=== PATIENT | female | born 1985 | race Caucasian/White ===

== ENCOUNTER 2017-02-02 13:25 | Outpatient (CLI) | payer MEDICAID | END 2017-02-02 13:26 | disposition home or self-care (01) | DX: M77.32 Calcaneal spur, left foot (principal) ==

== ENCOUNTER 2017-04-21 14:00 | Emergency (ER) | payer MEDICAID ==
--- NOTE | 2017-04-21 14:21 | ED Physician Documentation ---
PD HPI ABD PAIN - Stated complaint Stated Complaint: NAUSEA/SIDE PX - Chief complaint Chief Complaint: Abd Pain - History obtained from History obtained from: Patient - History of Present Illness Timing - onset: Other (Healthy 31-year-old woman who for the last 6 or so weeks has had a metallic taste in her mouth with nausea and watery mouth, the last 3 weeks has had pelvic cramps and was seen in the office today and had right lower quadrant tenderness and was referred here for evaluation for potential appendicitis. No changes in bowel movements. 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 : None HEENT: None Psych: None Musculoskeletal: Other Derm: None - Past Surgical History Past Surgical History: Yes Ortho: Other - Present Medications Home Medications: Ambulatory Orders Medication Instructions Recorded Confirmed Levothyroxine [Synthroid] 75 mcg PO QDAC 09/25/16 04/21/17 Ondansetron HCl [Zofran] 4 mg PO Q6H PRN #10 tablet 04/21/17 - Allergies Allergies/Adverse Reactions: Allergies Allergy/AdvReac Type Severity Reaction Status Date / Time latex Allergy Itching Verified 04/21/17 14:07 morphine Allergy Respiratory Verified 04/21/17 14:07 - Social History Does the pt smoke?: No Smoking Status: Former smoker Does the pt drink ETOH?: No Does the pt have substance abuse?: No - Family History Family history: reports: Non contributory - Immunizations Immunizations are current?: Yes - POLST Patient has POLST: No PD ED PE NORMAL - Vitals Vital signs reviewed: Yes - General General: Alert and oriented X 3, No acute distress, Well developed/nourished - HEENT HEENT: PERRL, EOMI - Neck Neck: Supple, no meningeal sign, No bony TTP - Cardiac Cardiac: RRR, No murmur - Respiratory Respiratory: No respiratory distress, Clear bilaterally - Abdomen Abdomen: Other (Tender right pelvis more than right lower quadrant, no guarding or rebound. Normal bowel tones. Soft.) - Back Back: No CVA TTP, No spinal TTP - Derm Derm: Normal color, Warm and dry - Extremities Extremities: No edema, No calf tenderness / cord - Neuro Neuro: Alert and oriented X 3, Normal speech - Psych Psych: Normal mood, Normal affect Results - Vitals Vitals: Vital Signs - 24 hr 04/21/17 04/21/17 14:05 15:44 Temperature 36.6 C Heart Rate 83 78 Respiratory 18 16 Rate Blood Pressure 128/93 H 128/78 O2 Saturation 99 100 Oxygen O2 Source Room air - Labs Labs: Laboratory Tests 04/21/17 04/21/17 04/21/17 14:15 14:15 14:21 WBC 9.4 RBC 4.68 Hgb 14.3 Hct 41.4 MCV 88.3 MCH 30.4 MCHC 34.5 RDW 12.3 Plt Count 335 MPV 7.8 L Neut # 5.9 Lymph # 2.9 Ferry # 0.5 Eos # 0.1 Baso # 0.1 Absolute Nucleated RBC 0.00 Nucleated RBCs 0.1 Sodium Potassium Chloride Carbon Dioxide Anion Gap BUN Creatinine Estimated GFR (MDRD) Glucose Calcium Total Bilirubin AST ALT Alkaline Phosphatase Total Protein Albumin Globulin Albumin/Globulin Ratio Lipase Urine Color YELLOW Urine Clarity CLEAR Urine pH 5.5 Ur Specific [place] 1.025 1.025 Urine Protein NEGATIVE Urine Glucose (UA) NEGATIVE Urine Ketones NEGATIVE Urine Occult Blood NEGATIVE Urine Nitrite NEGATIVE Urine Bilirubin NEGATIVE Urine Urobilinogen 0.2 (NORMAL) Ur Leukocyte Esterase NEGATIVE Ur Microscopic Review NOT INDICATED Urine Culture Comments NOT INDICATED Urine HCG, Qual NEGATIVE 04/21/17 14:21 WBC RBC Hgb Hct MCV MCH MCHC RDW Plt Count MPV Neut # Lymph # Ferry # Eos # Baso # Absolute Nucleated RBC Nucleated RBCs Sodium 138 Potassium 4.0 Chloride 102 Carbon Dioxide 27 Anion Gap 9.0 BUN 17 Creatinine 0.7 Estimated GFR (MDRD) 98 Glucose 100 Calcium 9.6 Total Bilirubin 0.4 AST 18 ALT 20 Alkaline Phosphatase 67 Total Protein 8.1 Albumin 4.4 Globulin 3.7 Albumin/Globulin Ratio 1.2 Lipase 21 L Urine Color Urine Clarity Urine pH Ur Specific [place] Urine Protein Urine Glucose (UA) Urine Ketones Urine Occult Blood Urine Nitrite Urine Bilirubin Urine Urobilinogen Ur Leukocyte Esterase Ur Microscopic Review Urine Culture Comments Urine HCG, Qual - Rads (name of study) CT A/P Radiology: EMP read contemporaneously (mild diverticulosis, NAD, normal appendix ) PD MEDICAL DECISION MAKING - ED course ED course: 31-year-old with almost subacute odd symptoms of nausea and metallic taste in her mouth with no evidence of . Sent from the clinic with right lower quadrant tenderness, but no leukocytosis and no abnormality on CT. 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 Departure - Departure Disposition: 01 Home, Self Care Clinical Impression: Abdominal pain Qualifiers: Abdominal location: right lower quadrant Qualified Code(s): R10.31 - Right lower quadrant pain Condition: Good Record reviewed to determine appropriate education?: Yes Instructions: ED Abdominal Pain Unkn Cause Follow-Up: [facility] [Provider Group] - Within 3 Days Prescriptions: Ondansetron HCl [Zofran] 4 mg PO Q6H PRN #10 tablet PRN Reason: Nausea / Vomiting Forms: Activity restrictions
[2017-04-21 14:33] LABS: HCG UR QUAL NEGATIVE
[2017-04-21 14:43] LABS: BASOPHILS # (AUTO) 0.1 10^3/uL (0.0-0.1); BASOPHILS % (AUTO) 0.6 %; EOSINOPHILS # (AUTO) 0.1 10^3/uL (0.0-0.7); HCT - HEMATOCRIT 41.4 % (37.0-47.0); HGB - HEMOGLOBIN 14.3 g/dL (12.0-16.0); LYMPHOCYTES # (AUTO) 2.9 10^3/uL (1.5-3.5); LYMPHOCYTES % (AUTO) 30.4 %; MEAN CORPUSCULAR HEMOGLOBIN 30.4 pg (27.0-31.0); MEAN CORPUSCULAR HGB CONC 34.5 g/dL (32.0-36.0); MEAN CORPUSCULAR VOLUME 88.3 fL (81.0-99.0); MEAN PLATELET VOLUME 7.8 fL (7.9-10.8); MONOCYTES # (AUTO) 0.5 10^3/uL (0.0-1.0); MONOCYTES % (AUTO) 5.3 %; NEUTROPHILS # (AUTO) 5.9 10^3/uL (1.5-6.6); NEUTROPHILS % (AUTO) 62.7 %; NUCLEATED RED BLOOD CELLS AUTO 0.1 /100WBC; RED BLOOD COUNT 4.68 10^6/uL (4.20-5.40); RED CELL DISTRIBUTION WIDTH 12.3 % (12.0-15.0); UNCORRECTED WHITE BLOOD COUNT 9.4 x10^3/uL; WHITE BLOOD COUNT 9.4 x10^3/uL (4.8-10.8)
[2017-04-21 14:55] LABS: ALBUMIN/GLOBULIN RATIO 1.2 (1.0-2.2); BILIRUBIN,TOTAL 0.4 mg/dL (0.2-1.0); CALCIUM 9.6 mg/dL (8.5-10.3); CREATININE 0.7 mg/dL (0.4-1.0); TOTAL PROTEIN 8.1 g/dL (6.7-8.2)
[2017-04-21 15:26] LABS: BILIRUBIN,URINE NEGATIVE (NEGATIVE); PH,URINE 5.5 PH (5.0-7.5)
[2017-04-21 15:27] LABS: UA CHARGE (STRIP ONLY) YES; UR CULTURE IF IND NOT INDICATED
[2017-04-21] MEDS ORDERED: IOPAMIDOL-300 100 ML VIAL IVP ONE (15:33)
[2017-04-21 15:47] VITALS: BP 128/78
--- NOTE | 2017-04-21 16:12 | CT Preliminary Report ---
Exam: CT Abdomen/Pelvis W/ IMPRESSION: 1. Normal appendix. 2. Mild diverticulosis without evidence for diverticulitis. [facility] SITE ID: [id number]
--- NOTE | 2017-04-21 16:14 | CT Report ---
EXAM: CT ABDOMEN AND PELVIS EXAM DATE: 04/21/2017 03:36 PM. CLINICAL HISTORY: IV only, RLQ pain, wait for neg preg test. COMPARISONS: None. TECHNIQUE: Routine helical CT imaging was performed through the abdomen and pelvis. IV contrast: 100 cc Isovue 300. Enteric contrast: No. Reconstructions: Coronal and sagittal. In accordance with CT protocol optimization, one or more of the following dose reduction techniques w ere utilized for this exam: automated exposure control, adjustment of mA and/or KV based on patient s ize, or use of iterative reconstructive technique. FINDINGS: Lung Bases: Unremarkable. Liver: Normal. No masses. Gallbladder/Bile Ducts: Partially contracted gallbladder. No biliary ductal dilatation evident. Spleen: Normal. Pancreas: Normal. Adrenal Glands: Normal. Kidneys: Normal. No masses or hydronephrosis. Peritoneal Cavity/Bowel: Diverticulosis. Prominent ileocecal valve fat. The appendix is well visualized and normal. Pelvic Organs: A couple of surgical clips or punctate calcifications are present along left levator ani muscle. Bladder is nearly collapsed. No adnexal mass evident. Unremarkable uterus. Vasculature: No aneurysms or other significant abnormality. Bones: No significant abnormality. Other: None. IMPRESSION: 1. Normal appendix. 2. Mild diverticulosis without evidence for diverticulitis. [facility] Referring Provider Line: [phone] SITE ID: [id number]
== END 2017-04-21 16:45 | disposition home or self-care (01) ==
LOC: ED 14:00
DX: R10.31 Right lower quadrant pain (principal); E03.9 Hypothyroidism, unspecified; Z87.891 Personal history of nicotine dependence
CPT/HCPCS: 36415; 74177; 80053; 81003; 81025; 83690; 85025; 99283; 99284; Q9967; 81001; 87086

== ENCOUNTER 2017-11-18 08:00 | Outpatient (CLI) | payer MEDICAID | END 2017-11-18 08:01 | disposition home or self-care (01) | LOC: LAB.N 08:00 | PROVIDERS: ATTEND Family Medicine | DX: E06.3 Autoimmune thyroiditis (principal) | CPT/HCPCS: 36415; 84443 ==

== ENCOUNTER 2018-01-31 10:27 | Emergency (ER) | payer MEDICAID ==
--- NOTE | 2018-01-31 12:45 | ED Physician Documentation ---
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 No cough, dyspnea, pleuritic pain.) Where injury occurred: Work Timing - duration: Weeks (3) Timing - details: Still present Worsened by: Moving. 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 HEENT: None Psych: None Musculoskeletal: Other Derm: None - Past Surgical History Past Surgical History: Yes Ortho: Other - Present Medications Home Medications: Ambulatory Orders Medication Instructions Recorded Confirmed Levothyroxine [Synthroid] 75 mcg PO QDAC 09/25/16 04/21/17 Ondansetron HCl [Zofran] 4 mg PO Q6H PRN #10 tablet 04/21/17 Methocarbamol [Robaxin] 500 mg PO Q6H PRN #25 tablet 01/31/18 Tramadol HCl 50 mg PO Q6H PRN #20 tablet 01/31/18 - Allergies Allergies/Adverse Reactions: Allergies Allergy/AdvReac Type Severity Reaction Status Date / Time latex Allergy Itching Verified 04/21/17 14:07 morphine Allergy Respiratory Verified 04/21/17 14:07 - Social History Does the pt smoke?: No Smoking Status: Never smoker Does the pt drink ETOH?: Yes Does the pt have substance abuse?: No - Immunizations Immunizations are current?: Yes - POLST Patient has POLST: No PD ED PE NORMAL - Vitals Vital signs reviewed: Yes - General General: Alert and oriented X 3, No acute distress, Well developed/nourished - HEENT HEENT: Atraumatic - Neck Neck: Supple, no meningeal sign, No adenopathy - Cardiac Cardiac: RRR, No murmur - Respiratory Respiratory: Clear bilaterally - Abdomen Abdomen: Soft, Non tender - Back Back: No spinal TTP - Derm Derm: Normal color, Warm and dry, No rash - Extremities Extremities: Other (both shoulders with some tenderness medial scapular area. Pain with ROM of the right shoulder more, exp with overhead reaching and forward pull/reach. No chestwall tenderness. ) - Neuro Neuro: Alert and oriented X 3, No motor deficit, No sensory deficit, Normal speech Results - Vitals Vitals: Vital Signs - 24 hr 01/31/18 01/31/18 10:43 13:21 Temperature 36.5 C 36.6 C Heart Rate 99 70 Respiratory 18 16 Rate Blood Pressure 134/92 H 154/94 H O2 Saturation 99 99 Oxygen O2 Source Room air - EKG (time done) 10:39 Rhythm: NSR (done through nursing triage protocols) Carver: Normal Intervals: Normal AK QRS: Normal Ischemia: Normal ST segments. No: ST elevation c/w ischemia, ST depression Compare to prior EKG: Old EKG unavailable PD MEDICAL DECISION MAKING - ED course Complexity details: considered differential (has muscular character, hurting with shoulder movement, even though pain does radiate to sternal area.), d/w patient Departure - Departure Disposition: 01 Home, Self Care Clinical Impression: Injury of muscle of thorax Condition: Stable Record reviewed to determine appropriate education?: Yes Instructions: ED Sprain Thoracic Spine Follow-Up: Juan Amaya MD [Primary Care Provider] - Prescriptions: Methocarbamol [Robaxin] 500 mg PO Q6H PRN #25 tablet PRN Reason: Spasms Tramadol HCl 50 mg PO Q6H PRN #20 tablet PRN Reason: Pain Comments: This sounds like muscular shoulder and upper back pains. Muscles do emanate from anterior chest as well that controlled the shoulder girdle and some of the nerves from that area would come through to the anterior chest so can be musculoskeletal and perhaps some nerve impingement. Use the anti- inflammatories you have at home twice daily and add Robaxin muscle relaxant ( help this will make you feel lightheaded or sleepy). Add Tylenol or tramadol if needed for worse pain. Activity as able. Avoid heavy lifting, push pull, overhead reaching for 3-5 days or so. Discharge Date/Time: 01/31/18 13:49
[2018-01-31] MEDS ORDERED: METHOCARBAMOL 500 MG TABLET PO STA (13:07)
[2018-01-31] MEDS ORDERED: ACETAMINOPHEN 325 MG TABLET PO STA (13:07)
[2018-01-31] MEDS ORDERED: TRIAMCINOLONE 40 MG/ML VIAL IM STA (13:07)
[2018-01-31] MEDS ORDERED: BUPIVACAINE 0.5% PF 30 ML VIAL SUBQ STA (13:07)
[2018-01-31] MEDS ORDERED: BUPIVACAINE 0.5% PF 10 ML VIAL SUBQ STA (13:09)
[2018-01-31 13:22] VITALS: BP 154/94
== END 2018-01-31 13:49 | disposition home or self-care (01) ==
LOC: ED 10:27
DX: S29.091A Other injury of muscle and tendon of front wall of thorax, initial encounter (principal); X50.0XXA Overexertion from strenuous movement or load, initial encounter; Y93.F2 Activity, caregiving, lifting; E03.9 Hypothyroidism, unspecified
CPT/HCPCS: 93005; 96372; 99283; A9270

== ENCOUNTER 2018-03-01 14:32 | Outpatient (CLI) | payer OTHER, MEDICAID ==
--- NOTE | 2018-03-02 09:25 | XRAY Report ---
THREE-VIEW LEFT SHOULDER: 03/01/2018 CLINICAL INDICATION: Joint pain. FINDINGS: Internal and external rotational views and a scapular Y view of the left shoulder demonstrate no evidence of acute fracture or dislocation. The joint spaces are preserved. No radiopaque foreign body is seen in the soft tissues. IMPRESSION: NORMAL LEFT SHOULDER. TD: 03/02/2018 09:24
== END 2018-03-01 14:33 | disposition home or self-care (01) ==
LOC: DI.N 14:32
PROVIDERS: ATTEND Nurse Practitioner
DX: M25.512 Pain in left shoulder (principal)

== ENCOUNTER 2018-04-23 21:17 | Emergency (ER) | payer MEDICAID, OTHER ==
[2018-04-23 21:25] VITALS: BP 135/94
--- NOTE | 2018-04-23 21:28 | ED Physician Documentation ---
PD HPI LOWER EXT INJURY - Stated complaint Stated Complaint: FELL IN MANHOLE - Chief complaint Chief Complaint: Wound - History obtained from History obtained from: Patient - History of Present Illness PD HPI LOW EXT INJURY LOCATION: Right, Left, Lower leg Type of injury: Fall (was going to catch ferry in [place] and there was a manhole cover that was ajar. She stepped on it and it allowed her left foot to fall through, causing abrasions to medial aspect of lower leg. Her right leg bent and she struck nolasco on the ground, with bruising there. Also some bruising left forearm as she landed on ground. She got out of the position and continued to the ferry, as the ferry was leaving soon. She got off and came here for evaluation. Interested in cleansing of abrasions and tetanus update. She does not feel she has any fractures nor truncal injury.) Where injury occurred: Street (in [place].) Timing - onset: How many hours ago (1), Today Timing - details: Abrupt onset, Still present Worsened by: Moving, Palpating Associated symptoms: Swelling, Discolored (some bruising showing up right nolasco and lef forearm.). No: Weakness, Numbness Similar symptoms before: Has not had sx before Review of Systems Skin: reports: Abrasion (s). 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 HEENT: None Psych: None Musculoskeletal: Other Derm: None - Past Surgical History Past Surgical History: Yes Ortho: Other - Present Medications Home Medications: Ambulatory Orders Medication Instructions Recorded Confirmed Levothyroxine [Synthroid] 75 mcg PO QDAC 09/25/16 04/21/17 Ondansetron HCl [Zofran] 4 mg PO Q6H PRN #10 tablet 04/21/17 Methocarbamol [Robaxin] 500 mg PO Q6H PRN #25 tablet 01/31/18 Tramadol HCl 50 mg PO Q6H PRN #20 tablet 01/31/18 - Allergies Allergies/Adverse Reactions: Allergies Allergy/AdvReac Type Severity Reaction Status Date / Time latex Allergy Itching Verified 04/23/18 21:24 morphine Allergy Respiratory Verified 04/23/18 21:24 - Social History Does the pt smoke?: No Smoking Status: Never smoker Does the pt drink ETOH?: Yes Does the pt have substance abuse?: No - Immunizations Immunizations are current?: Yes - POLST Patient has POLST: No PD ED PE NORMAL - Vitals Vital signs reviewed: Yes - General General: Alert and oriented X 3, Well developed/nourished - HEENT HEENT: Atraumatic - Neck Neck: Supple, no meningeal sign, No bony TTP - Cardiac Cardiac: RRR, No murmur - Respiratory Respiratory: Clear bilaterally, Other (no chest pain with deep inspiration.) - Abdomen Abdomen: Soft, Non tender - Back Back: No spinal TTP - Derm Derm: Normal color, Warm and dry - Extremities Extremities: Other (left forearm with some bruising and soft tissue tenderness proximally ulnar side. FROM of the elbow without pain and no effusion. Right nolasco with some tenderness and early bruising. No bony deformity. Left medial anterior nolasco with abrasions. No laceration nor FB noted. Normal color and cap refill in toes. ) - Neuro Neuro: Alert and oriented X 3, No motor deficit, No sensory deficit, Normal speech Results - Vitals Vitals: Oxygen O2 Source Room air PD MEDICAL DECISION MAKING - ED course Complexity details: considered differential (minor injuries of abrasions and bruisings, and needs tetanus. Wounds cleansed and bandaged. No indications for xray. ), d/w patient - Sepsis Event Vital Signs: Oxygen O2 Source Room air Departure - Departure Disposition: 01 Home, Self Care Clinical Impression: Fall into storm drain or manhole, initial encounter Leg abrasion Qualifiers: Encounter type: initial encounter Laterality: left Qualified Code(s): S80.812A - Abrasion, left lower leg, initial encounter Contusion, lower leg Qualifiers: Encounter type: initial encounter Laterality: right Qualified Code(s): S80.11XA - Contusion of right lower leg, initial encounter Forearm contusion Qualifiers: Encounter type: initial encounter Laterality: left Qualified Code(s): S50.12XA - Contusion of left forearm, initial encounter Condition: Stable Record reviewed to determine appropriate education?: Yes Instructions: ED Abrasion Follow-Up: Schafer,Mary Jo J, DNP [Primary Care Provider] - Comments: You are given a tetanus booster here. you will be good for 10 years. Tylenol ibuprofen if needed for pains. Recheck if signs of infection. Discharge Date/Time: 04/23/18 21:57
[2018-04-23] MEDS ORDERED: IBUPROFEN 800 MG TABLET PO STA (21:32)
[2018-04-23] MEDS ORDERED: ACETAMINOPHEN 325 MG TABLET PO STA (21:33)
[2018-04-23] MEDS ORDERED: TETANUS/DIPHTHERIA/PERTUSSIS 0.5 ML SYRINGE IM ONE (21:33)
== END 2018-04-23 21:57 | disposition home or self-care (01) ==
LOC: ED 21:17
DX: S80.812A Abrasion, left lower leg, initial encounter (principal); S80.12XA Contusion of left lower leg, initial encounter; S50.12XA Contusion of left forearm, initial encounter; W17.1XXA Fall into storm drain or manhole, initial encounter; Y93.02 Activity, running; Y92.414 Local residential or business street as the place of occurrence of the external cause
CPT/HCPCS: 90471; 90715; 99282; 99283; A9270

== ENCOUNTER 2018-04-29 14:13 | Outpatient (CLI) | payer OTHER, MEDICAID ==
--- NOTE | 2018-04-29 15:11 | XRAY Report ---
Procedure Date: 04/29/2018 Accession Number: [id number] / [id number] Procedure: XRN - Pelvis 1 View CPT Code: FULL RESULT: EXAM: Pelvis 1 View DATE: 04/29/2018 2:37 PM CLINICAL HISTORY: LOWER BACK PAIN COMPARISON: None. TECHNIQUE: 1 view. FINDINGS: Bones: Normal. No fracture or bone lesion. Joints: Mild bilateral hip osteoarthritis. Soft Tissues: Normal. No soft tissue swelling. IMPRESSION: Mild bilateral hip osteoarthritis. [facility]
--- NOTE | 2018-04-29 15:12 | XRAY Report ---
Procedure Date: 04/29/2018 Accession Number: [id number] / [id number] Procedure: XRN - Lumbar Spine 2 View CPT Code: FULL RESULT: EXAM: Lumbar Spine 2 View DATE: 04/29/2018 2:41 PM CLINICAL HISTORY: LBP COMPARISON: 11/28/2014 TECHNIQUE: 3 views. FINDINGS: Alignment: Normal. No spondylolisthesis or scoliosis. Bones: Five [id number] lumbar vertebral bodies are present. No fractures or bone lesions. Disks: Mild degenerative disc disease. Facets: Mild facet arthropathy. Sacroiliac Joints: Unremarkable. Soft Tissues: Normal. The visualized bowel gas pattern is normal. IMPRESSION: Mild degenerative changes. No evidence of interval fracture. [facility]
== END 2018-04-29 14:14 | disposition home or self-care (01) ==
LOC: DI.N 14:13
PROVIDERS: ATTEND Nurse Practitioner
DX: M51.36 Other intervertebral disc degeneration, lumbar region (principal); M47.896 Other spondylosis, lumbar region; M16.0 Bilateral primary osteoarthritis of hip
CPT/HCPCS: 72100; 72170

== ENCOUNTER 2018-05-10 14:03 | Outpatient (CLI) | payer MEDICAID ==
--- NOTE | 2018-05-10 14:34 | XRAY Report ---
Procedure Date: 05/10/2018 Accession Number: [id number] / [id number] Procedure: XRN - Knee 3 View RT CPT Code: FULL RESULT: EXAM: Knee 3 View RT DATE: 05/10/2018 2:16 PM CLINICAL HISTORY: STRAIN OF MUSCLES/TENDONS OF ANT RT LEG COMPARISON: None. TECHNIQUE: 3 views. FINDINGS: Bones: Normal. No fractures or bone lesions. Joints: Normal. No effusion. No subluxations. Soft Tissues: Normal. No soft tissue swelling. IMPRESSION: Normal knee radiography. [facility]
== END 2018-05-10 14:04 | disposition home or self-care (01) ==
LOC: DI.N 14:03
PROVIDERS: ATTEND Nurse Practitioner
DX: M25.561 Pain in right knee (principal); S86.21 Strain of muscle(s) and tendon(s) of anterior muscle group at lower leg level

== ENCOUNTER 2018-07-10 10:23 | Emergency (ER) | payer MEDICAID, OTHER ==
[2018-07-10] MEDS ORDERED: LIDOCAINE VISCOUS 2% 15 ML UDC MM STA (11:59)
[2018-07-10] MEDS ORDERED: SODIUM CHLORIDE 0.9% 1,000 ML IV ONE (11:59)
[2018-07-10] MEDS ORDERED: MAG HYDROX/AL HYDROX/SIMETH 30 ML UDC PO STA (11:59)
--- NOTE | 2018-07-10 12:01 | ED Physician Documentation ---
PD HPI ABD PAIN - Stated complaint Stated Complaint: ABD PX - Chief complaint Chief Complaint: Abd Pain - History obtained from History obtained from: Patient - History of Present Illness Timing - onset: How many weeks ago (2) Timing - duration: Weeks (2) Timing - details: Gradual onset, Still present, Waxing and waning Quality: Sharp, Pain Location: Epigastric Improved by: Meds (minimal improvement with antacid) Worsened by: Eating, Palpation Associated symptoms: Nausea, Diarrhea, Dizzy, Loss of appetite. No: Fever, Vomiting, Hematemesis, Constipation, Melena, Hematochezia, Dysuria, Hematuria, Chest pain Similar symptoms before: Has not had sx before Recently seen: Not recently seen - Additional information Additional information: Previously well 33-year-old female has had some abdominal pain epigastric that started about 2 weeks ago. She denies any use of ibuprofen Aleve or alcohol. She states the pain has been waxing and waning and is especially worse over the past 3 days. She did think that she got some relief of the heartburn aspect of this with the use of chewable antacids. She has not had a history of ulcer previously and she has not taken medications for reduction in stomach acid. Review of Systems Constitutional: denies: Fever Eyes: denies: Decreased vision Ears: denies: Ear pain Nose: denies: Congestion Throat: denies: Sore throat Cardiac: denies: Chest pain / pressure, Palpitations Respiratory: denies: Dyspnea, Cough GI: reports: Abdominal Pain, Nausea, Diarrhea. denies: Vomiting : denies: Dysuria, Frequency Skin: denies: Rash Musculoskeletal: reports: Back pain, Extremity pain, Joint pain. 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 : None HEENT: None Psych: None Musculoskeletal: Other Derm: None - Past Surgical History Past Surgical History: Yes Ortho: Other - Present Medications Home Medications: Ambulatory Orders Medication Instructions Recorded Confirmed Levothyroxine [Synthroid] 75 mcg PO QDAC 09/25/16 04/21/17 Ondansetron HCl [Zofran] 4 mg PO Q6H PRN #10 tablet 04/21/17 Methocarbamol [Robaxin] 500 mg PO Q6H PRN #25 tablet 01/31/18 Tramadol HCl 50 mg PO Q6H PRN #20 tablet 01/31/18 Sucralfate [Carafate] 1 gm PO ACHS #30 tablet 07/10/18 - Allergies Allergies/Adverse Reactions: Allergies Allergy/AdvReac Type Severity Reaction Status Date / Time latex Allergy Itching Verified 04/23/18 21:24 morphine Allergy Respiratory Verified 04/23/18 21:24 - Social History Does the pt smoke?: No Smoking Status: Never smoker Does the pt drink ETOH?: Yes Does the pt have substance abuse?: No - Immunizations Immunizations are current?: Yes - POLST Patient has POLST: No PD ED PE NORMAL - Vitals Vital signs reviewed: Yes (hypertensive mild diastolic ) - General General: Alert and oriented X 3, No acute distress, Well developed/nourished - HEENT HEENT: Atraumatic, PERRL, EOMI - Neck Neck: Supple, no meningeal sign, No bony TTP - Cardiac Cardiac: No murmur, Other (tachy to 100 sitting up ) - Respiratory Respiratory: No respiratory distress, Clear bilaterally - Abdomen Abdomen: Soft, Other (mild epigastric tenderness) - Back Back: No CVA TTP, No spinal TTP - Derm Derm: Normal color, Warm and dry, No rash - Extremities Extremities: No deformity, No edema - Neuro Neuro: Alert and oriented X 3, 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, No motor deficit, No sensory deficit, Normal speech Eye Opening: Spontaneous Motor: Obeys Commands Verbal: Oriented GCS Score: 15 - Psych Psych: Normal mood, Normal affect Results - Vitals Vitals: Vital Signs - 24 hr 07/10/18 10:29 Temperature 36.7 C Heart Rate 86 Respiratory 14 Rate Blood Pressure 126/81 H O2 Saturation 100 Oxygen O2 Source Room air - Labs Labs: Laboratory Tests 07/10/18 07/10/18 07/10/18 10:50 11:00 11:00 WBC 6.6 RBC 4.69 Hgb 14.2 Hct 40.9 MCV 87.4 MCH 30.3 MCHC 34.7 RDW 12.6 Plt Count 336 MPV 8.3 Neut # (Auto) 3.4 Lymph # (Auto) 2.6 Otero # (Auto) 0.4 Eos # (Auto) 0.1 Baso # (Auto) 0.0 Absolute Nucleated RBC 0.00 Nucleated RBC % 0.0 Sodium 136 Potassium 3.9 Chloride 102 Carbon Dioxide 26 Anion Gap 8.0 BUN 16 Creatinine 0.8 Estimated GFR (MDRD) 83 L Glucose 113 H Calcium 8.9 Total Bilirubin 0.6 AST 15 ALT 17 Alkaline Phosphatase 58 Troponin I Total Protein 7.8 Albumin 4.0 Globulin 3.8 Albumin/Globulin Ratio 1.1 Lipase 29 Urine Color YELLOW Urine Clarity CLEAR Urine pH 6.5 Ur Specific [place] 1.020 Urine Protein NEGATIVE Urine Glucose (UA) NEGATIVE Urine Ketones NEGATIVE Urine Occult Blood LARGE H Urine Nitrite NEGATIVE Urine Bilirubin NEGATIVE Urine Urobilinogen 0.2 (NORMAL) Ur Leukocyte Esterase NEGATIVE Urine RBC 0-5 Urine WBC 0-3 Ur Squamous Epith Cells FEW Squamous Urine Bacteria Few Ur Microscopic Review INDICATED Urine Culture Comments NOT INDICATED Urine HCG, Qual NEGATIVE 07/10/18 11:00 WBC RBC Hgb Hct MCV MCH MCHC RDW Plt Count MPV Neut # (Auto) Lymph # (Auto) Otero # (Auto) Eos # (Auto) Baso # (Auto) Absolute Nucleated RBC Nucleated RBC % Sodium Potassium Chloride Carbon Dioxide Anion Gap BUN Creatinine Estimated GFR (MDRD) Glucose Calcium Total Bilirubin AST ALT Alkaline Phosphatase Troponin I < 0.04 Total Protein Albumin Globulin Albumin/Globulin Ratio Lipase Urine Color Urine Clarity Urine pH Ur Specific [place] Urine Protein Urine Glucose (UA) Urine Ketones Urine Occult Blood Urine Nitrite Urine Bilirubin Urine Urobilinogen Ur Leukocyte Esterase Urine RBC Urine WBC Ur Squamous Epith Cells Urine Bacteria Ur Microscopic Review Urine Culture Comments Urine HCG, Qual Procedures - IVC sono (time) 1150 Bedside IVC sono: IVC measures (cm) (1.17), IVC collapsed c insp (cm) (complete) , Dehydration (est 1 liter deficit.) PD MEDICAL DECISION MAKING - ED course Complexity details: reviewed results, re-evaluated patient, considered differential, d/w patient ED course: 33-year-old female has resolution of her symptoms with the use of viscous lidocaine and Mylanta. I suspect she has peptic ulcer disease or gastritis and she is administered intravenous Protonix as well. - Sepsis Event Vital Signs: Vital Signs - 24 hr 07/10/18 10:29 Temperature 36.7 C Heart Rate 86 Respiratory 14 Rate Blood Pressure 126/81 H O2 Saturation 100 Oxygen O2 Source Room air Departure - Departure Disposition: 01 Home, Self Care Clinical Impression: Dehydration Gastritis Qualifiers: Gastritis type: unspecified gastritis Chronicity: acute Gastritis bleeding: without bleeding Qualified Code(s): K29.00 - Acute gastritis without bleeding Condition: Stable Instructions: ED PUD Vs Gastritis, ED Dehydration Follow-Up: Mary Jo Schafer DNP [Primary Care Provider] - Prescriptions: Sucralfate [Carafate] 1 gm PO ACHS #30 tablet Comments: Today it appears your symptoms are related to irritation of your stomach lining or possibly a duodenal ulcer. It is imperative that you reduce the acid in her stomach on a continuous basis. My recommendation is to take some Pepcid AC or some Prilosec or omeprazole. In addition we have prescribed some Carafate which will need to take before you eat and at bedtime. This will need to be taken for about a week to heal up the stomach. Avoid ibuprofen Aleve and alcohol. Follow-up with your primary care doctor.
[2018-07-10 12:05] LABS: BASOPHILS % (AUTO) 0.7 %; EOSINOPHILS # (AUTO) 0.1 10^3/uL (0.0-0.7); EOSINOPHILS % (AUTO) 1.4 %; HGB - HEMOGLOBIN 14.2 g/dL (12.0-16.0); LYMPHOCYTES # (AUTO) 2.6 10^3/uL (1.5-3.5); LYMPHOCYTES % (AUTO) 39.7 %; MEAN CORPUSCULAR HEMOGLOBIN 30.3 pg (27.0-31.0); MEAN CORPUSCULAR HGB CONC 34.7 g/dL (32.0-36.0); MEAN CORPUSCULAR VOLUME 87.4 fL (81.0-99.0); MEAN PLATELET VOLUME 8.3 fL (7.9-10.8); MONOCYTES # (AUTO) 0.4 10^3/uL (0.0-1.0); MONOCYTES % (AUTO) 6.5 %; NEUTROPHILS # (AUTO) 3.4 10^3/uL (1.5-6.6); NEUTROPHILS % (AUTO) 51.7 %; PLT - PLATELET COUNT 336 10^3/uL (130-450); RED BLOOD COUNT 4.69 10^6/uL (4.20-5.40); RED CELL DISTRIBUTION WIDTH 12.6 % (12.0-15.0); WHITE BLOOD COUNT 6.6 x10^3/uL (4.8-10.8)
[2018-07-10 12:14] LABS: ALBUMIN/GLOBULIN RATIO 1.1 (1.0-2.2); BILIRUBIN,TOTAL 0.6 mg/dL (0.2-1.0); CALCIUM 8.9 mg/dL (8.5-10.3); CREATININE 0.8 mg/dL (0.4-1.0); TOTAL PROTEIN 7.8 g/dL (6.7-8.2)
[2018-07-10 12:28] LABS: BILIRUBIN,URINE NEGATIVE (NEGATIVE); GLUCOSE, URINE (UA) NEGATIVE (NEGATIVE); KETONES,URINE (UA) NEGATIVE (NEGATIVE); LEUKOCYTE ESTERASE, URINE NEGATIVE (NEGATIVE); NITRITE,URINE NEGATIVE (NEGATIVE); OCCULT BLOOD,URINE LARGE (NEGATIVE); PH,URINE 6.5 PH (5.0-7.5); PROTEIN,URINE NEGATIVE (NEGATIVE); UROBILINOGEN,URINE 0.2 (NORMAL) E.U./dL (NORMAL)
[2018-07-10] MEDS ORDERED: PANTOPRAZOLE 40 MG VIAL IVP STA (12:29)
[2018-07-10 12:31] LABS: CLARITY,URINE CLEAR (CLEAR); HCG UR QUAL NEGATIVE
[2018-07-10 12:40] LABS: BACTERIA,URINE Few /HPF (None Seen); RBC,URINE 0-5 /HPF (0-5); SQUAMOUS EPITHELIAL CELL,UR FEW Squamous (<= Few)
[2018-07-10 13:53] VITALS: BP 144/91
== END 2018-07-10 13:53 | disposition home or self-care (01) ==
LOC: ED 10:23
DX: E86.0 Dehydration (principal); K29.70 Gastritis, unspecified, without bleeding
CPT/HCPCS: 36415; 80053; 81001; 81025; 83690; 84484; 85025; 96361; 96374; 99283; A9270; 81003; 87086

== ENCOUNTER 2018-07-13 11:15 | Outpatient (CLI) | payer MEDICAID, OTHER ==
[2018-07-13 21:08] LABS: THYROID STIMULATING HORMONE 5.73 uIU/mL (0.34-5.60)
[2018-07-13 21:19] LABS: FOLATE 15.91 ng/mL (5.90 - >24.8)
== END 2018-07-13 11:16 | disposition home or self-care (01) ==
LOC: LAB.R 11:15
PROVIDERS: ATTEND Nurse Practitioner
DX: E55.9 Vitamin D deficiency, unspecified (principal); R53.83 Other fatigue
CPT/HCPCS: 36415; 82306; 82607; 82746; 84443

== ENCOUNTER 2018-07-15 13:01 | Emergency (ER) | payer MEDICAID, OTHER ==
[2018-07-15] MEDS ORDERED: SODIUM CHLORIDE 0.9% 1,000 ML IV ONE (13:42)
[2018-07-15] MEDS ORDERED: ACETAMINOPHEN 1,000 MG/100 ML 100 ML IV STA (13:43)
[2018-07-15] MEDS ORDERED: ONDANSETRON 4 MG/2 ML VIAL IVP STA (13:43)
[2018-07-15] MEDS ORDERED: IOPAMIDOL-300 100 ML VIAL ONE (13:52)
[2018-07-15 14:03] LABS: BASOPHILS # (AUTO) 0.1 10^3/uL (0.0-0.1); BASOPHILS % (AUTO) 0.9 %; EOSINOPHILS % (AUTO) 0.3 %; HGB - HEMOGLOBIN 14.5 g/dL (12.0-16.0); LYMPHOCYTES # (AUTO) 2.7 10^3/uL (1.5-3.5); MEAN CORPUSCULAR HGB CONC 34.6 g/dL (32.0-36.0); MEAN CORPUSCULAR VOLUME 86.8 fL (81.0-99.0); MONOCYTES # (AUTO) 0.9 10^3/uL (0.0-1.0); MONOCYTES % (AUTO) 9.6 %; NEUTROPHILS # (AUTO) 5.3 10^3/uL (1.5-6.6); NEUTROPHILS % (AUTO) 59.2 %; PLT - PLATELET COUNT 357 10^3/uL (130-450); RED BLOOD COUNT 4.82 10^6/uL (4.20-5.40); RED CELL DISTRIBUTION WIDTH 12.5 % (12.0-15.0); WHITE BLOOD COUNT 8.9 x10^3/uL (4.8-10.8)
[2018-07-15 14:08] LABS: GLUCOSE, URINE (UA) NEGATIVE (NEGATIVE); KETONES,URINE (UA) NEGATIVE (NEGATIVE); LEUKOCYTE ESTERASE, URINE TRACE (NEGATIVE); NITRITE,URINE NEGATIVE (NEGATIVE); OCCULT BLOOD,URINE NEGATIVE (NEGATIVE); PROTEIN,URINE TRACE mg/dL (NEGATIVE); UROBILINOGEN,URINE 1 (NORMAL) E.U./dL (NORMAL)
[2018-07-15 14:21] LABS: ALBUMIN 4.2 g/dL (3.2-5.5); ALBUMIN/GLOBULIN RATIO 1.1 (1.0-2.2); BILIRUBIN,TOTAL 0.5 mg/dL (0.2-1.0); CALCIUM 9.2 mg/dL (8.5-10.3); CREATININE 0.8 mg/dL (0.4-1.0)
[2018-07-15] MEDS ORDERED: IOPAMIDOL-300 100 ML VIAL IVP ONE (14:46)
--- NOTE | 2018-07-15 15:02 | CT Report ---
Reason: LLQ abdominal pain. Procedure Date: 07/15/2018 Accession Number: [id number] / [id number] Procedure: CT - Abdomen/Pelvis W/ CPT Code: FULL RESULT: EXAM: CT ABDOMEN AND PELVIS EXAM DATE: 07/15/2018 02:36 PM. CLINICAL HISTORY: LLQ abdominal pain. COMPARISONS: 04/21/[address] TECHNIQUE: Routine helical CT imaging was performed through the abdomen and pelvis. IV contrast: 100 ML ISOVUE 300. Enteric contrast: No. Reconstructions: Coronal and sagittal. In accordance with CT protocol optimization, one or more of the following dose reduction techniques were utilized for this exam: automated exposure control, adjustment of mA and/or KV based on patient size, or use of iterative reconstructive technique. FINDINGS: Lung Bases: Unremarkable. Liver: Normal contour. No masses. Gallbladder/Bile Ducts: Unremarkable. Spleen: Normal. Pancreas: Normal. Adrenal Glands: Normal. Kidneys: No masses or hydronephrosis. Peritoneal Cavity/Bowel: No free fluid, free air or adenopathy. No masses or acute inflammatory process. The appendix is well visualized and has a normal CT appearance. There are colon diverticula without evidence of diverticulitis. Pelvic Organs: The bladder is decompressed and therefore not well evaluated. Other pelvic organs appear unremarkable. Again seen are clips versus calcifications about the left levator ani. Vasculature: No aneurysms or other significant abnormality. Bones: No bone lesions. IMPRESSION: There are no CT findings to suggest a cause of the patient's symptoms RADIA
[2018-07-15 15:05] LABS: BILIRUBIN,URINE NEGATIVE (NEGATIVE); CLARITY,URINE HAZY (CLEAR); HCG UR QUAL NEGATIVE; ICTOTEST,URINE NEGATIVE
[2018-07-15 15:06] LABS: AMORPHOUS SEDIMENT,UR Few /LPF; BACTERIA,URINE None Seen /HPF (None Seen); RBC,URINE 0-5 /HPF (0-5); SQUAMOUS EPITHELIAL CELL,UR RARE Squamous (<= Few)
--- NOTE | 2018-07-15 15:29 | ED Physician Documentation ---
PD HPI ABD PAIN - Stated complaint Stated Complaint: STOMACH PX/DIZZY/SOA - Chief complaint Chief Complaint: Abd Pain - History obtained from History obtained from: Patient - History of Present Illness Timing - onset: How many days ago (5) Timing - details: Still present Location: Periumbilical Associated symptoms: Nausea. No: Fever, Vomiting, Dysuria Recently seen: Emergency Dept (5 days ago) - Treatment prior to arrival Treatment prior to arrival: Carafate. - Additional information Additional information: The patient is a 33-year-old female who presents with periumbilical abdominal pain that has been ongoing for several days. She also complains of dizziness, headache, and that her arms and legs feel heavy. She denies fever, but does report cold sweats. She has had nausea, without vomiting. Initially she had diarrhea, but she has been constipated for the past 3 days. She denies dysuria. Her last menstrual period ended 1-1/2 weeks ago. She was seen in the emergency department here 5 days ago with epigastric abdominal pain. She was diagnosed with peptic ulcer disease, and was prescribed Carafate. She has been using Carafate, but states the pain has become lower in her abdomen. Review of Systems Constitutional: reports: Sweats, Other ("dizziness"). denies: Fever Ears: denies: Ear pain, Tinnitus/ringing Nose: denies: Congestion Throat: denies: Sore throat Cardiac: denies: Chest pain / pressure Respiratory: denies: Dyspnea, Cough GI: reports: Abdominal Pain, Nausea. denies: Vomiting : reports: LMP (ended 1-1/2 weeks ago.). denies: Dysuria Skin: denies: Rash Musculoskeletal: denies: Back pain Neurologic: reports: Headache. 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 HEENT: None Psych: None Musculoskeletal: Other Derm: None - Past Surgical History Past Surgical History: Yes Ortho: Other - Present Medications Home Medications: Ambulatory Orders Medication Instructions Recorded Confirmed Sucralfate [Carafate] 1 gm PO ACHS #30 tablet 07/10/18 Promethazine [Phenergan] 25 - 50 mg PO Q6H PRN #10 tab 07/15/18 - Allergies Allergies/Adverse Reactions: Allergies Allergy/AdvReac Type Severity Reaction Status Date / Time latex Allergy Itching Verified 07/15/18 13:21 morphine Allergy Respiratory Verified 07/15/18 13:21 - Social History Does the pt smoke?: No Smoking Status: Never smoker Does the pt drink ETOH?: Yes Does the pt have substance abuse?: No - Immunizations Immunizations are current?: Yes - POLST Patient has POLST: No PD ED PE NORMAL - Vitals Vital signs reviewed: Yes (mild hypertension initially.) - General General: Alert and oriented X 3, Well developed/nourished - HEENT HEENT: Atraumatic, Moist mucous membranes, Pharynx benign - Neck Neck: Supple, no meningeal sign, No adenopathy - Cardiac Cardiac: RRR, No murmur - Respiratory Respiratory: No respiratory distress, Clear bilaterally - Abdomen Abdomen: Normal bowel sounds, Soft, No organomegaly, Other (tenderness to palpation in the left lower quadrant, without rebound tenderness or guarding.) - Back Back: No CVA TTP - Derm Derm: No rash - Extremities Extremities: No edema, No calf tenderness / cord - Neuro Neuro: Alert and oriented X 3, No motor deficit, No sensory deficit Results - Vitals Vitals: Oxygen O2 Source Room air - Labs Labs: Microbiology 07/15/18 13:49 Urine Culture - Final Urine,Clean Catch >100,000 COLONIES/ML Polymicrobial growth including potential pathogens. This is suggestive of skin or other contamination. Laboratory Tests 07/15/18 07/15/18 07/15/18 13:49 13:49 13:49 WBC 8.9 RBC 4.82 Hgb 14.5 Hct 41.8 MCV 86.8 MCH 30.0 MCHC 34.6 RDW 12.5 Plt Count 357 MPV 8.0 Neut # (Auto) 5.3 Lymph # (Auto) 2.7 Mckenzie # (Auto) 0.9 Eos # (Auto) 0.0 Baso # (Auto) 0.1 Absolute Nucleated RBC 0.00 Nucleated RBC % 0.0 Sodium 136 Potassium 3.4 L Chloride 102 Carbon Dioxide 28 Anion Gap 6.0 BUN 14 Creatinine 0.8 Estimated GFR (MDRD) 83 L Glucose 101 H Calcium 9.2 Total Bilirubin 0.5 AST 19 ALT 20 Alkaline Phosphatase 63 Total Protein 8.0 Albumin 4.2 Globulin 3.8 Albumin/Globulin Ratio 1.1 Lipase 31 Urine Color YELLOW Urine Clarity HAZY Urine pH 6.0 Ur Specific [place] 1.025 Urine Protein TRACE Urine Glucose (UA) NEGATIVE Urine Ketones NEGATIVE Urine Occult Blood NEGATIVE Urine Nitrite NEGATIVE Urine Bilirubin NEGATIVE Urine Urobilinogen 1 (NORMAL) Ur Leukocyte Esterase TRACE H Urine RBC 0-5 Urine WBC 0-3 Ur Squamous Epith Cells RARE Squamous Amorphous Sediment Few Urine Bacteria None Seen Ur Microscopic Review INDICATED Urine Culture Comments INDICATED Urine HCG, Qual NEGATIVE - Rads (name of study) CT abd/pelvis Radiology: Prelim report reviewed, EMP read contemporaneously, See rad report (There are no CT findings to suggest a cause for the patient's symptoms.) PD MEDICAL DECISION MAKING - ED course Complexity details: reviewed old records, reviewed results, re-evaluated patient, considered differential, d/w patient ED course: The patient's symptoms are most consistent with viral syndrome. CBC, chemistry panel, and urinalysis are essentially normal. CT scan of her abdomen and pelvis reveals no evidence of acute abdominal process, specifically no evidence of diverticulitis. I suspect her dizziness is most likely attributable to the underlying viral syndrome. Her presentation does not suggest ovarian cyst or torsion. Treatment in the emergency department included administration of normal saline 1 L IV, Zofran 4 mg IV, and Ofirmev 1 g IV. Meclizine 25 mg administered orally. Her symptoms did improve with the above treatment. Reexamination of her abdomen reveals continued slight tenderness in the left lower quadrant, but improved from the initial exam. I discussed with the patient and her family the results of the workup, symptomatic treatment and outpatient follow-up, as well as potentially worrisome signs or symptoms that should prompt reevaluation in the emergency department. She is being discharged with prescription for Phenergan. - Sepsis Event Vital Signs: Oxygen O2 Source Room air Departure - Departure Disposition: 01 Home, Self Care Clinical Impression: Dizziness, nonspecific, Viral syndrome Abdominal pain Qualifiers: Abdominal location: left lower quadrant Qualified Code(s): R10.32 - Left lower quadrant pain Condition: Stable Instructions: ED Abdominal Pain Unkn Cause, ED Dizziness UKO, ED Viral Syndrome Follow-Up: Mary Jo Schafer DNP [Primary Care Provider] - Prescriptions: Promethazine [Phenergan] 25 - 50 mg PO Q6H PRN #10 tab PRN Reason: Nausea / Vomiting Comments: Drink plenty of fluids. You can use Tylenol up to 4 times daily if needed for fever, headache, or other discomfort. You can use Phenergan as prescribed if needed for nausea. Follow up with your primary physician within 1 week. Call to schedule appo intment. Return to the emergency department if you develop increasing abdominal pain, persistent vomiting, fever with shaking chills, or otherwise worsening symptoms. Discharge Date/Time: 07/15/18 16:57
[2018-07-15] MEDS ORDERED: MECLIZINE 12.5 MG TABLET PO STA (15:39)
[2018-07-15 16:53] VITALS: BP 135/76
== END 2018-07-15 16:57 | disposition home or self-care (01) ==
LOC: ED 13:01
DX: B34.9 Viral infection, unspecified (principal); R42 Dizziness and giddiness; R10.32 Left lower quadrant pain; R11.0 Nausea
CPT/HCPCS: 36415; 74177; 80053; 81001; 81025; 83690; 85025; 87086; 96361; 96365; 96375; 99283; 99284; A9270; J0131; Q9967; 81003

== ENCOUNTER 2018-07-18 20:18 | Emergency (ER) | payer MEDICAID, OTHER ==
[2018-07-18] MEDS ORDERED: ALBUTEROL NEB 2.5 MG/3 ML INH STA (20:50)
[2018-07-18 21:14] LABS: BASOPHILS # (AUTO) 0.1 10^3/uL (0.0-0.1); BASOPHILS % (AUTO) 0.8 %; EOSINOPHILS # (AUTO) 0.1 10^3/uL (0.0-0.7); EOSINOPHILS % (AUTO) 0.6 %; HGB - HEMOGLOBIN 13.5 g/dL (12.0-16.0); LYMPHOCYTES % (AUTO) 34.7 %; MEAN CORPUSCULAR HEMOGLOBIN 30.4 pg (27.0-31.0); MEAN CORPUSCULAR HGB CONC 34.8 g/dL (32.0-36.0); MEAN CORPUSCULAR VOLUME 87.5 fL (81.0-99.0); MEAN PLATELET VOLUME 8.2 fL (7.9-10.8); MONOCYTES # (AUTO) 0.6 10^3/uL (0.0-1.0); NEUTROPHILS # (AUTO) 4.9 10^3/uL (1.5-6.6); NEUTROPHILS % (AUTO) 56.9 %; PLT - PLATELET COUNT 315 10^3/uL (130-450); RED BLOOD COUNT 4.45 10^6/uL (4.20-5.40); RED CELL DISTRIBUTION WIDTH 12.6 % (12.0-15.0); WHITE BLOOD COUNT 8.6 x10^3/uL (4.8-10.8)
[2018-07-18 21:33] LABS: ALBUMIN 3.8 g/dL (3.2-5.5); BILIRUBIN,TOTAL 0.2 mg/dL (0.2-1.0); CREATININE 0.8 mg/dL (0.4-1.0); TOTAL PROTEIN 7.5 g/dL (6.7-8.2)
--- NOTE | 2018-07-18 21:33 | ED Physician Documentation ---
History of Present Illness - Stated complaint Stated Complaint: SOA/LIGHTHEADED - Chief complaint Chief Complaint: Cardiac - History obtained from History obtained from: Patient - History of Present Illness Timing: How many weeks ago (1) - Additonal information Additional information: Patient is a 33 year old female presenting to the emergency department for in termittent abdominal pain, chest pain and dizziness. Patient was seen her over a week ago and was diagnosed with peptic ulcer disease. patient came back a few days later for chest pain and shortness of breath. patient states that she had another episode this evening. patient states that she felt like she had to take deep breaths to get air. patient reports being under a lot of stress lately. Review of Systems Ten Systems: 10 systems reviewed and negative Constitutional: denies: Fever, Chills Cardiac: reports: Chest pain / pressure. denies: Palpitations Respiratory: reports: Dyspnea. 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 HEENT: None Psych: None Musculoskeletal: Other Derm: None - Past Surgical History Past Surgical History: Yes Ortho: Other - Present Medications Home Medications: Ambulatory Orders Medication Instructions Recorded Confirmed Sucralfate [Carafate] 1 gm PO ACHS #30 tablet 07/10/18 Promethazine [Phenergan] 25 - 50 mg PO Q6H PRN #10 tab 07/15/18 Omeprazole [PriLOSEC] 20 mg PO DAILY 07/18/18 07/18/18 - Allergies Allergies/Adverse Reactions: Allergies Allergy/AdvReac Type Severity Reaction Status Date / Time latex Allergy Itching Verified 07/18/18 20:33 morphine Allergy Respiratory Verified 07/18/18 20:33 - Social History Does the pt smoke?: No Smoking Status: Former smoker Does the pt drink ETOH?: Yes Does the pt have substance abuse?: No - Immunizations Immunizations are current?: Yes - POLST Patient has POLST: No PD ED PE NORMAL - Vitals Vital signs reviewed: Yes - General General: Alert and oriented X 3 - HEENT HEENT: Atraumatic, PERRL - Neck Neck: Supple, no meningeal sign - Cardiac Cardiac: RRR, No murmur - Respiratory Respiratory: No respiratory distress, Clear bilaterally - Abdomen Abdomen: Soft, Non tender - Derm Derm: Normal color, Warm and dry - Extremities Extremities: No deformity - Neuro Neuro: Alert and oriented X 3, No motor deficit, Normal speech Eye Opening: Spontaneous Results - Vitals Vitals: Vital Signs - 24 hr 07/18/18 07/18/18 07/18/18 20:29 21:16 21:24 Temperature 97.3 C H 98.2 C H Heart Rate 94 80 85 Respiratory 20 17 17 Rate Blood Pressure 148/100 H 141/88 H O2 Saturation 98 99 07/18/18 21:47 Temperature Heart Rate 82 Respiratory 19 Rate Blood Pressure 116/57 L O2 Saturation 99 Oxygen O2 Source Room air - EKG (time done) 2054 Rate: Rate (enter#) (87) Rhythm: NSR [place]: Normal Intervals: Normal ID QRS: Normal Ischemia: Normal ST segments - Labs Labs: Laboratory Tests 07/18/18 07/18/18 07/18/18 21:08 21:08 21:08 WBC 8.6 RBC 4.45 Hgb 13.5 Hct 38.9 MCV 87.5 MCH 30.4 MCHC 34.8 RDW 12.6 Plt Count 315 MPV 8.2 Neut # (Auto) 4.9 Lymph # (Auto) 3.0 Dickens # (Auto) 0.6 Eos # (Auto) 0.1 Baso # (Auto) 0.1 Absolute Nucleated RBC 0.00 Nucleated RBC % 0.1 D-Dimer Sodium 138 Potassium 3.4 L Chloride 102 Carbon Dioxide 28 Anion Gap 8.0 BUN 18 Creatinine 0.8 Estimated GFR (MDRD) 83 L Glucose 109 H Calcium 9.0 Total Bilirubin 0.2 AST 18 ALT 17 Alkaline Phosphatase 48 Troponin I < 0.04 Total Protein 7.5 Albumin 3.8 Globulin 3.7 Albumin/Globulin Ratio 1.0 Lipase 28 07/18/18 21:08 WBC RBC Hgb Hct MCV MCH MCHC RDW Plt Count MPV Neut # (Auto) Lymph # (Auto) Dickens # (Auto) Eos # (Auto) Baso # (Auto) Absolute Nucleated RBC Nucleated RBC % D-Dimer 222.3 Sodium Potassium Chloride Carbon Dioxide Anion Gap BUN Creatinine Estimated GFR (MDRD) Glucose Calcium Total Bilirubin AST ALT Alkaline Phosphatase Troponin I Total Protein Albumin Globulin Albumin/Globulin Ratio Lipase PD MEDICAL DECISION MAKING - ED course Complexity details: reviewed old records, reviewed results, re-evaluated patient, considered differential, d/w patient ED course: Patient was seen and examined at bedside. ekg was performed and was normal sinus. labs were drawn. Patient was treated with a nebulizer treatment to see if it would help. Patient's diagnostics were all within normal limits. A lengthy discussion was had with the patient concerning the physical manifestations of stress and anxiety. Patient was tearful and responsive. Patient was given detailed discharge and follow up instructions and was stable for outpatient follow up. - Sepsis Event Vital Signs: Vital Signs - 24 hr 07/18/18 07/18/18 07/18/18 20:29 21:16 21:24 Temperature 97.3 C H 98.2 C H Heart Rate 94 80 85 Respiratory 20 17 17 Rate Blood Pressure 148/100 H 141/88 H O2 Saturation 98 99 07/18/18 21:47 Temperature Heart Rate 82 Respiratory 19 Rate Blood Pressure 116/57 L O2 Saturation 99 Oxygen O2 Source Room air Departure - Departure Disposition: 01 Home, Self Care Clinical Impression: Stress reaction Condition: Good Instructions: ED Stress React Follow-Up: Mary Jo Schafer DNP [Primary Care Provider] - Within 3 Days Comments: Your diagnostics today were within normal limits. there are no significant abnormalities on this work up, or previous work ups indicating it is less likely to be cardiac or pulmonary in nature. I think that there is a component of stress and anxiety contributing to your symptoms. the best thing for you would likely be talking to people about the stressors in your life and exercise. you should follow up with your doctor for further care. You may return to the emergency department at any time for new, worsening or uncontrollable symptoms.
[2018-07-18 21:48] VITALS: BP 116/57
== END 2018-07-18 22:00 | disposition home or self-care (01) ==
LOC: ED 20:18
DX: F43.9 Reaction to severe stress, unspecified (principal); F41.9 Anxiety disorder, unspecified; Z87.891 Personal history of nicotine dependence
CPT/HCPCS: 36415; 80053; 83690; 84484; 85025; 85379; 93005; 94640; 99283

== ENCOUNTER 2018-08-05 09:22 | Emergency (ER) | payer MEDICAID ==
[2018-08-05] MEDS ORDERED: MECLIZINE 12.5 MG TABLET PO STA (10:43)
--- NOTE | 2018-08-05 10:43 | ED Physician Documentation ---
History of Present Illness - Stated complaint Stated Complaint: DIZINESS - Chief complaint Chief Complaint: General - History obtained from History obtained from: Patient - History of Present Illness Timing: How many weeks ago (4) - Additonal information Additional information: dizziness with head movement. Review of Systems Constitutional: denies: Fever Eyes: denies: Decreased vision Ears: denies: Ear pain Nose: denies: Congestion Throat: denies: Sore throat Cardiac: denies: Chest pain / pressure, Palpitations Respiratory: reports: Cough. denies: Dyspnea GI: reports: Nausea. 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 HEENT: None Psych: None Musculoskeletal: Other Derm: None - Past Surgical History Past Surgical History: Yes Ortho: Other - Present Medications Home Medications: Ambulatory Orders Medication Instructions Recorded Confirmed Sucralfate [Carafate] 1 gm PO ACHS #30 tablet 07/10/18 Promethazine [Phenergan] 25 - 50 mg PO Q6H PRN #10 tab 07/15/18 Omeprazole [PriLOSEC] 20 mg PO DAILY 07/18/18 07/18/18 RX: Meclizine HCl 25 mg PO Q6HR PRN #20 tab.chew 08/05/18 - Allergies Allergies/Adverse Reactions: Allergies Allergy/AdvReac Type Severity Reaction Status Date / Time latex Allergy Itching Verified 07/18/18 20:33 morphine Allergy Respiratory Verified 07/18/18 20:33 - Social History Does the pt smoke?: No Smoking Status: Never smoker Does the pt drink ETOH?: Yes Does the pt have substance abuse?: No - Immunizations Immunizations are current?: Yes - POLST Patient has POLST: No PD ED PE NORMAL - Vitals Vital signs reviewed: Yes - General General: Alert and oriented X 3, No acute distress, Well developed/nourished - HEENT HEENT: Atraumatic, PERRL, EOMI, Ears normal, Moist mucous membranes, Pharynx benign, Dentition benign, Other (There are 3 beats of nystagmus bilaterally ) - Neck Neck: Supple, no meningeal sign, No bony TTP - Cardiac Cardiac: RRR, No murmur - Respiratory Respiratory: No respiratory distress, Clear bilaterally - Abdomen Abdomen: Soft, Non tender - Back Back: No CVA TTP, No spinal TTP - Derm Derm: Normal color, Warm and dry, No rash - Extremities Extremities: No deformity, No edema - Neuro Neuro: Alert and oriented X 3, No motor deficit, No sensory deficit, Normal speech Eye Opening: Spontaneous Motor: Obeys Commands Verbal: Oriented GCS Score: 15 - Psych Psych: Normal mood, Normal affect Results - Vitals Vitals: Vital Signs - 24 hr 08/05/18 08/05/18 09:27 10:04 Temperature 35.9 C L Heart Rate 93 85 Respiratory 18 16 Rate Blood Pressure 146/100 H 115/76 O2 Saturation 99 98 Oxygen O2 Source Room air - Rads (name of study) CT head without Radiology: Prelim report reviewed (Impression: 1. Negative noncontrast brain CT. No intracranial hemorrhage or space-occupying lesion. 2 Clear visualized paranasal sinuses.), EMP read indepedently, See rad report Procedures - IVC sono (time) 1035 Bedside IVC sono: IVC measures (cm) (1.33), IVC collapsed c insp (cm) (compl ete), Dehydration (mild est <1 liter) PD MEDICAL DECISION MAKING - ED course Complexity details: considered differential, d/w patient ED course: 33 y/o female with vertigo is given meclizine and instructions on modified eply manuvere. - Sepsis Event Vital Signs: Vital Signs - 24 hr 08/05/18 08/05/18 09:27 10:04 Temperature 35.9 C L Heart Rate 93 85 Respiratory 18 16 Rate Blood Pressure 146/100 H 115/76 O2 Saturation 99 98 Oxygen O2 Source Room air Departure - Departure Disposition: 01 Home, Self Care Clinical Impression: Labyrinthitis Condition: Stable Instructions: ED Labyrinthitis Follow-Up: Mary Jo Schafer DNP [Primary Care Provider] - Prescriptions: RX: Meclizine HCl 25 mg PO Q6HR PRN #20 tab.chew PRN Reason: Dizziness Discharge Date/Time: 08/05/18 12:48
[2018-08-05 10:59] LABS: BILIRUBIN,URINE NEGATIVE (NEGATIVE); GLUCOSE, URINE (UA) NEGATIVE (NEGATIVE); KETONES,URINE (UA) NEGATIVE (NEGATIVE); LEUKOCYTE ESTERASE, URINE NEGATIVE (NEGATIVE); NITRITE,URINE NEGATIVE (NEGATIVE); OCCULT BLOOD,URINE MODERATE (NEGATIVE); PROTEIN,URINE NEGATIVE (NEGATIVE); UROBILINOGEN,URINE 0.2 (NORMAL) E.U./dL (NORMAL)
[2018-08-05 11:01] LABS: BASOPHILS % (AUTO) 0.7 %; EOSINOPHILS % (AUTO) 0.6 %; HGB - HEMOGLOBIN 13.7 g/dL (12.0-16.0); LYMPHOCYTES # (AUTO) 2.7 10^3/uL (1.5-3.5); LYMPHOCYTES % (AUTO) 36.5 %; MEAN CORPUSCULAR HEMOGLOBIN 30.6 pg (27.0-31.0); MEAN CORPUSCULAR HGB CONC 34.6 g/dL (32.0-36.0); MEAN CORPUSCULAR VOLUME 88.5 fL (81.0-99.0); MEAN PLATELET VOLUME 7.8 fL (7.9-10.8); MONOCYTES # (AUTO) 0.5 10^3/uL (0.0-1.0); MONOCYTES % (AUTO) 6.6 %; NEUTROPHILS # (AUTO) 4.1 10^3/uL (1.5-6.6); NEUTROPHILS % (AUTO) 55.6 %; PLT - PLATELET COUNT 330 10^3/uL (130-450); RED BLOOD COUNT 4.47 10^6/uL (4.20-5.40); RED CELL DISTRIBUTION WIDTH 12.9 % (12.0-15.0); WHITE BLOOD COUNT 7.3 x10^3/uL (4.8-10.8)
[2018-08-05 11:02] LABS: CLARITY,URINE CLEAR (CLEAR)
[2018-08-05 11:08] LABS: BACTERIA,URINE Few /HPF (None Seen); MUCUS,URINE Moderate Strands; RBC,URINE 0-5 /HPF (0-5); SQUAMOUS EPITHELIAL CELL,UR FEW Squamous (<= Few)
[2018-08-05 11:16] LABS: ALBUMIN 3.9 g/dL (3.2-5.5); BILIRUBIN,TOTAL 0.5 mg/dL (0.2-1.0); CALCIUM 8.8 mg/dL (8.5-10.3); CREATININE 0.7 mg/dL (0.4-1.0); TOTAL PROTEIN 7.7 g/dL (6.7-8.2)
--- NOTE | 2018-08-05 12:29 | CT Report ---
Reason: headache for one month Procedure Date: 08/05/2018 Accession Number: [id number] / [id number] Procedure: CT - Head W/O CPT Code: FULL RESULT: EXAM: CT HEAD EXAM DATE: 08/05/2018 12:00 PM. CLINICAL HISTORY: Headache for one month. COMPARISON: None. TECHNIQUE: Multiaxial CT images were obtained from the foramen magnum to the vertex. Reformats: Sagittal and coronal. IV contrast: None. In accordance with CT protocol optimization, one or more of the following dose reduction techniques were utilized for this exam: automated exposure control, adjustment of mA and/or KV based on patient size, or use of iterative reconstructive technique. FINDINGS: Parenchyma: No intraparenchymal hemorrhage. No evidence of mass, midline shift, or CT findings of infarction. Lorenzo-white differentiation is distinct. Extraaxial Spaces: Normal. No subdural or epidural collections identified. Ventricles: Normal in size and position. Sinuses and Orbits: Imaged paranasal sinuses, orbits, and mastoids show no significant abnormality. Bones: No evidence of fracture or calvarial defect. IMPRESSION: 1. Negative noncontrast brain CT. No intra-cranial hemorrhage or space-occupying lesion. 2. Clear visualized paranasal sinuses. [facility]
[2018-08-05 12:47] VITALS: BP 131/80
== END 2018-08-05 12:48 | disposition home or self-care (01) ==
LOC: ED 09:22
DX: H83.09 Labyrinthitis, unspecified ear (principal); E86.0 Dehydration
CPT/HCPCS: 36415; 70450; 80053; 81001; 83690; 84443; 85025; 99283; A9270; 81003; 87086

== ENCOUNTER 2018-08-15 18:31 | Emergency (ER) | payer MEDICAID ==
[2018-08-15] MEDS ORDERED: SODIUM CHLORIDE 0.9% 1,000 ML IV ONE (19:06)
[2018-08-15] MEDS ORDERED: ALBUTEROL NEB 2.5 MG/3 ML INH STA (19:06)
[2018-08-15 19:38] LABS: BASOPHILS # (AUTO) 0.1 10^3/uL (0.0-0.1); BASOPHILS % (AUTO) 0.5 %; EOSINOPHILS % (AUTO) 0.4 %; HGB - HEMOGLOBIN 13.5 g/dL (12.0-16.0); LYMPHOCYTES # (AUTO) 3.3 10^3/uL (1.5-3.5); LYMPHOCYTES % (AUTO) 28.4 %; MEAN CORPUSCULAR HEMOGLOBIN 30.8 pg (27.0-31.0); MEAN CORPUSCULAR HGB CONC 35.4 g/dL (32.0-36.0); MEAN CORPUSCULAR VOLUME 87.2 fL (81.0-99.0); MEAN PLATELET VOLUME 7.8 fL (7.9-10.8); MONOCYTES # (AUTO) 0.7 10^3/uL (0.0-1.0); NEUTROPHILS # (AUTO) 7.6 10^3/uL (1.5-6.6); NEUTROPHILS % (AUTO) 64.7 %; PLT - PLATELET COUNT 351 10^3/uL (130-450); RED BLOOD COUNT 4.38 10^6/uL (4.20-5.40); RED CELL DISTRIBUTION WIDTH 12.1 % (12.0-15.0); WHITE BLOOD COUNT 11.7 x10^3/uL (4.8-10.8)
[2018-08-15 19:53] LABS: ALBUMIN 4.1 g/dL (3.2-5.5); ALBUMIN/GLOBULIN RATIO 1.1 (1.0-2.2); BILIRUBIN,TOTAL 0.5 mg/dL (0.2-1.0); CALCIUM 9.1 mg/dL (8.5-10.3); CREATININE 0.7 mg/dL (0.4-1.0); TOTAL PROTEIN 7.7 g/dL (6.7-8.2)
[2018-08-15 20:13] LABS: HCG UR QUAL NEGATIVE
--- NOTE | 2018-08-15 20:31 | XRAY Report ---
Reason: soa Procedure Date: 08/15/2018 Accession Number: [id number] / [id number] Procedure: XR - Chest 2 View X-Ray CPT Code: 30297 FULL RESULT: EXAM: CHEST RADIOGRAPHY EXAM DATE: 08/15/2018 08:05 PM. CLINICAL HISTORY: Shortness of breath. COMPARISON: CHEST 2 VIEW PA/LAT 08/24/2014 10:23 AM. TECHNIQUE: 2 views. FINDINGS: Lungs/Pleura: No focal opacities evident. No pleural effusion. No pneumothorax. Normal volumes. Mediastinum: Heart and mediastinal contours are unremarkable. Other: No bony abnormality noted. IMPRESSION: Normal 2-view chest radiography. [facility]
[2018-08-15] MEDS ORDERED: IOPAMIDOL-300 100 ML VIAL ONE (20:51)
[2018-08-15 20:52] VITALS: BP 128/88
[2018-08-15] MEDS ORDERED: IOPAMIDOL-300 100 ML VIAL IVP ONE (21:10)
--- NOTE | 2018-08-15 21:40 | CT Report ---
Reason: soa, elevated d-dimer Procedure Date: 08/15/2018 Accession Number: [id number] / [id number] Procedure: CT - Chest Angio (PE) CPT Code: FULL RESULT: EXAM: CT ANGIOGRAM CHEST. EXAM DATE: 08/15/2018 09:21 PM. CLINICAL HISTORY: Shortness of breath. Elevated D-dimer. COMPARISON: None. TECHNIQUE: Routine helical imaging was performed through the chest in the pulmonary arterial phase. IV Contrast: ISOVUE 300 80 mL. Reconstructions: Coronal 3-D MIP reconstructions.Sagittal and coronal. In accordance with CT protocol optimization, one or more of the following dose reduction techniques were utilized for this exam: automated exposure control, adjustment of mA and/or KV based on patient size, or use of iterative reconstructive technique. FINDINGS: Pulmonary Arteries: Diagnostic quality: Mildly suboptimal due to patient respiratory motion as well as timing of the contrast, through the segmental arteries. No evidence for acute or chronic pulmonary emboli. RV/LV is within normal limits. There is no interventricular septal bowing. There is no reflux of contrast material in the IVC. Lungs/Pleura: No consolidation, nodules, or edema. No effusions or pneumothorax. Mediastinum: Mild cardiomegaly. No significant pericardial fluid. No significant adenopathy. Thoracic Aorta: Unremarkable. Upper Abdomen: Bilateral adrenal hyperplasia. Other: None. IMPRESSION: 1. Mildly suboptimal exam. 2. No evidence of pulmonary emboli. 3. Mild cardiomegaly. 4. Bilateral adrenal hyperplasia. [facility]
--- NOTE | 2018-08-15 22:05 | ED Physician Documentation ---
PD HPI DYSPNEA - Stated complaint Stated Complaint: SOA - Chief complaint Chief Complaint: Resp - Additional information Additional information: 33-year-old female presents the emergency department with ongoing complaints of dizziness, lightheadedness shortness of breath and general fatigue. Today, the patient's main concern is her shortness of breath. While at physical therapy that she was having difficulty breathing and the activities were harder than normal. The patient denies recent URI symptoms, fevers, chills, Or abdominal pain. Symptoms are described as moderate. No relieving factors Review of Systems Constitutional: reports: Fatigue. 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 HEENT: None Psych: None Musculoskeletal: Other Derm: None - Past Surgical History Past Surgical History: Yes Ortho: Other - Present Medications Home Medications: Ambulatory Orders Medication Instructions Recorded Confirmed Sucralfate [Carafate] 1 gm PO ACHS #30 tablet 07/10/18 Omeprazole [PriLOSEC] 20 mg PO DAILY 07/18/18 07/18/18 - Allergies Allergies/Adverse Reactions: Allergies Allergy/AdvReac Type Severity Reaction Status Date / Time latex Allergy Itching Verified 08/15/18 18:54 morphine Allergy Respiratory Verified 08/15/18 18:54 - Social History Does the pt smoke?: No Smoking Status: Never smoker Does the pt drink ETOH?: Yes Does the pt have substance abuse?: No - Immunizations Immunizations are current?: Yes - POLST Patient has POLST: No PD ED PE NORMAL - General General: Alert and oriented X 3, No acute distress - HEENT HEENT: Atraumatic, PERRL, EOMI - Neck Neck: Supple, no meningeal sign - Cardiac Cardiac: Strong equal pulses, Other (Regular tachycardia) - Respiratory Respiratory: No respiratory distress, Clear bilaterally - Abdomen Abdomen: Soft, Non tender - Derm Derm: Normal color - Extremities Extremities: No deformity, No calf tenderness / cord - Neuro Neuro: Alert and oriented X 3, Normal speech - Psych Psych: Normal mood Results - Vitals Vitals: Vital Signs - 24 hr 08/15/18 08/15/18 08/15/18 18:48 19:34 20:15 Temperature 36.0 C L Heart Rate 109 H 96 97 Respiratory 16 12 16 Rate Blood Pressure 143/103 H 149/108 H O2 Saturation 100 99 08/15/18 08/15/18 20:29 20:51 Temperature Heart Rate 100 105 H Respiratory 22 18 Rate Blood Pressure 131/94 H 128/88 H O2 Saturation 100 100 Oxygen O2 Source Room air - EKG (time done) 19:12 Rate: Rate (enter#) Rhythm: NSR [place]: Normal Intervals: Normal VT QRS: Normal Ischemia: Normal ST segments Other comments: Other comments (No acute ischemic changes) - Labs Labs: Laboratory Tests 08/15/18 08/15/18 08/15/18 19:30 19:30 19:30 WBC 11.7 H RBC 4.38 Hgb 13.5 Hct 38.2 MCV 87.2 MCH 30.8 MCHC 35.4 RDW 12.1 Plt Count 351 MPV 7.8 L Neut # (Auto) 7.6 H Lymph # (Auto) 3.3 [place] # (Auto) 0.7 Eos # (Auto) 0.0 Baso # (Auto) 0.1 Absolute Nucleated RBC 0.01 Nucleated RBC % 0.1 D-Dimer 261.3 H Sodium 136 Potassium 3.7 Chloride 101 Carbon Dioxide 26 Anion Gap 9.0 BUN 14 Creatinine 0.7 Estimated GFR (MDRD) 97 Glucose 94 Calcium 9.1 Total Bilirubin 0.5 AST 20 ALT 20 Alkaline Phosphatase 71 Troponin I B-Natriuretic Peptide Total Protein 7.7 Albumin 4.1 Globulin 3.6 Albumin/Globulin Ratio 1.1 Lipase 21 L Ur Specific [place] Urine HCG, Qual 08/15/18 08/15/18 08/15/18 19:30 19:30 20:05 WBC RBC Hgb Hct MCV MCH MCHC RDW Plt Count MPV Neut # (Auto) Lymph # (Auto) [place] # (Auto) Eos # (Auto) Baso # (Auto) Absolute Nucleated RBC Nucleated RBC % D-Dimer Sodium Potassium Chloride Carbon Dioxide Anion Gap BUN Creatinine Estimated GFR (MDRD) Glucose Calcium Total Bilirubin AST ALT Alkaline Phosphatase Troponin I < 0.04 B-Natriuretic Peptide 10 Total Protein Albumin Globulin Albumin/Globulin Ratio Lipase Ur Specific [place] >=1.030 H Urine HCG, Qual NEGATIVE - Rads (name of study) CTA CHEST Radiology: Final report received (1. Mildly suboptimal exam. 2. No evidence of pulmonary emboli. 3. Mild cardiomegaly 4. Bilateral adrenal hyperplasia. ) CXR Radiology: Final report received PD MEDICAL DECISION MAKING - ED course ED course: On reevaluation the patient is resting comfortably, her symptoms currently appear to be under control and a workup does not reveal any acute abnormality that would necessitate admission to the hospital or transfer. The patient appears appropriate for discharge and ongoing outpatient management. I discussed with her the incidental finding seen on CT scan. I recommended having an outpatient echocardiogram and stress test. The patient understands and agrees. I discussed warning signs and recommended returning to the emergency department immediately for any worsening or concerns. I also recommended having her primary follow the adrenal hyperplasia. Departure - Departure Disposition: 01 Home, Self Care Clinical Impression: Adrenal hyperplasia Dyspnea Qualifiers: Dyspnea type: unspecified Qualified Code(s): R06.00 - Dyspnea, unspecified Condition: Good Instructions: ED Dyspnea Shortness of Breath Follow-Up: Mary Jo Schafer DNP [Primary Care Provider] - (Please follow-up with your primary care as scheduled this Wednesday. Please ask your Primary care nurse practitioner to arrange for an outpatient echocardiogram and stress test. Please asked them to follow-up on the abnormality seen on CT scan regarding the adrenal hyperplasia) Comments: Please return to the emergency department for worsening symptoms or any concerns
== END 2018-08-15 22:15 | disposition home or self-care (01) ==
LOC: ED 18:31
DX: E27.8 Other specified disorders of adrenal gland (principal); R06.00 Dyspnea, unspecified; I51.7 Cardiomegaly
CPT/HCPCS: 36415; 71046; 71275; 80053; 81025; 83690; 83880; 84484; 85025; 85379; 93005; 94640; 96360; 96361; 99283; 99284; Q9967

== ENCOUNTER 2018-09-03 14:46 | Outpatient (CLI) | payer MEDICAID ==
--- NOTE | 2018-09-04 17:56 | MRI Report ---
Reason: KNEE JOINT PAIN,RIGHT Procedure Date: 09/03/2018 Accession Number: [id number] / [id number] Procedure: MRI - Knee RT W/O CPT Code: FULL RESULT: EXAM: RIGHT KNEE MRI WITHOUT CONTRAST. EXAM DATE: 09/03/2018 02:53 PM. CLINICAL HISTORY: Right knee joint pain for 5 months. COMPARISON: 05/10/2018 radiograph. TECHNIQUE: Multiplanar, multisequence T1-weighted and fluid-sensitive sequences of the knee without contrast. Other: None. FINDINGS: Bones: No fractures or marrow edema. Red marrow reconversion is present. Articular Cartilage: Mild medial patellofemoral articular cartilage thinning is present. Minimal medial compartment articular cartilage thinning is seen. The lateral compartment articular cartilage is intact. Medial Meniscus: The medial meniscus is intact. Lateral Meniscus: The lateral meniscus is intact. Cruciate Ligaments: The anterior and posterior cruciate ligaments are intact. Collateral Ligaments: The medial collateral and lateral collateral ligamentous structures are intact. Tendons: The quadriceps, patellar, semimembranosus, and popliteus tendons are unremarkable. Musculature: No edema or fatty atrophy. Other: No effusion. No popliteal cyst. No loose bodies. The medial and lateral retinacula are intact. The subcutaneous tissues and fat pads are unremarkable. 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 [facility] MUSCULOSKELETAL RADIOLOGY SECTION
== END 2018-09-03 14:47 | disposition home or self-care (01) ==
LOC: DI 14:46
PROVIDERS: ATTEND Orthopaedic Surgery Sports Medicine
DX: M22.41 Chondromalacia patellae, right knee (principal)

== ENCOUNTER 2018-09-28 08:00 | Outpatient (CLI) | payer MEDICAID | END 2018-09-28 08:01 | disposition home or self-care (01) | LOC: LAB.N 08:00 | PROVIDERS: ATTEND Nurse Practitioner | DX: E03.9 Hypothyroidism, unspecified (principal) | CPT/HCPCS: 36415; 84443 ==

== ENCOUNTER 2018-10-10 08:00 | Outpatient (CLI) | payer MEDICAID | END 2018-10-10 23:59 | disposition home or self-care (01) | LOC: LAB.N 08:00 | PROVIDERS: ATTEND Nurse Practitioner | DX: E27.8 Other specified disorders of adrenal gland (principal) | CPT/HCPCS: 36415; 81599; 82533 ==

== ENCOUNTER 2018-12-21 08:00 | Outpatient (CLI) | payer MEDICAID ==
[2018-12-21 20:23] LABS: CHOL/HDL RATIO 3.6 (<4.4); CHOLESTEROL 153 mg/dL; HDL CHOLESTEROL 43 mg/dL; LDL CHOLESTEROL,CALCULATED 94 mg/dL; LDL/HDL RATIO 2.2 (<4.4); VLDL CHOLESTEROL 16 mg/dL
== END 2018-12-21 23:59 | disposition home or self-care (01) ==
LOC: LAB.N 08:00
PROVIDERS: ATTEND Internal Medicine Cardiovascular Disease
DX: Z83.438 Family history of other disorder of lipoprotein metabolism and other lipidemia (principal)
CPT/HCPCS: 36415; 80061; 83721

== ENCOUNTER 2018-12-22 18:41 | Emergency (ER) | payer MEDICAID ==
[2018-12-22 18:47] VITALS: BP 144/92
--- NOTE | 2018-12-22 19:10 | ED Physician Documentation ---
History of Present Illness - Stated complaint Stated Complaint: DIZZY - Chief complaint Chief Complaint: Neuro - History obtained from History obtained from: Patient - History of Present Illness Timing: Other (She has been sick for going on 2 weeks with a respiratory illness, started in the sinuses and moved down to her chest. She was seen by her physician yesterday and diagnosed against with bronchitis and prescribed amoxicillin which she has not filled yet. Today she feels disequilibrium and feels she feels like she is drifting to the right. There is still sinus pressure but she denies any ear symptoms. There is no possibility of . 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 HEENT: None Psych: None Musculoskeletal: Other Derm: None - Past Surgical History Past Surgical History: Yes Ortho: Other - Present Medications Home Medications: Ambulatory Orders Medication Instructions Recorded Confirmed Omeprazole [PriLOSEC] 20 mg PO DAILY 07/18/18 12/22/18 Biotin 1,000 mcg PO DAILY 12/22/18 12/22/18 Cholecalciferol [Vitamin D3] 5,000 unit PO DAILY 12/22/18 12/22/18 Cyanocobalamin (Vitamin B-12) 2,500 mcg SL DAILY 12/22/18 12/22/18 [Vitamin B-12] Levothyroxine [Synthroid] 88 mcg PO QDAC 12/22/18 12/22/18 Meclizine HCl 25 mg PO Q6H PRN #20 tab.chew 12/22/18 - Allergies Allergies/Adverse Reactions: Allergies Allergy/AdvReac Type Severity Reaction Status Date / Time latex Allergy Itching Verified 08/15/18 18:54 morphine Allergy Respiratory Verified 12/22/18 18:47 - Social History Does the pt smoke?: No Smoking Status: Never smoker Does the pt drink ETOH?: Yes Does the pt have substance abuse?: No - Immunizations Immunizations are current?: Yes - POLST Patient has POLST: No PD ED PE NORMAL - Vitals Vital signs reviewed: Yes - General General: Alert and oriented X 3, No acute distress - HEENT HEENT: PERRL, EOMI - Neck Neck: Supple, no meningeal sign, No bony TTP - Cardiac Cardiac: RRR, No murmur - Respiratory Respiratory: No respiratory distress, Clear bilaterally - Abdomen Abdomen: Normal bowel sounds, Soft, Non tender - Back Back: No CVA TTP, No spinal TTP - Derm Derm: Normal color, Warm and dry - Extremities Extremities: No edema, No calf tenderness / cord - Neuro Neuro: Alert and oriented X 3, Normal speech Eye Opening: Spontaneous Motor: Obeys Commands Verbal: Oriented GCS Score: 15 Results - Vitals Vitals: Vital Signs - 24 hr 12/22/18 18:44 Temperature 36.8 C Heart Rate 97 Respiratory 20 Rate Blood Pressure 144/92 H O2 Saturation 100 Oxygen O2 Source Room air PD MEDICAL DECISION MAKING - ED course ED course: This is a 33-year-old woman with a disequilibrium in the setting of an upper respiratory infection with a normal examination. We will trial some meclizine and otherwise conservative care for URI was advised. Departure - Departure Disposition: Home, Self Care Clinical Impression: Balance problem Acute labyrinthitis Qualifiers: Laterality: left Qualified Code(s): H83.02 - Labyrinthitis, left ear Condition: Good Record reviewed to determine appropriate education?: Yes Instructions: ED Labyrinthitis Prescriptions: Meclizine HCl 25 mg PO Q6H PRN #20 tab.chew PRN Reason: Dizziness Comments: Call your doctor to arrange a follow-up appointment, make the next available appointment. In the interim, return anytime if worse or if new symptoms develop. Your blood pressure was elevated today on check into the emergency department. This does not mean that you have hypertension, it is a common phenomenon to come to the emergency department and have elevated blood pressure. I recommend that you see your primary care physician within the week to have it rechecked when you are feeling better.
== END 2018-12-22 19:14 | disposition home or self-care (01) ==
LOC: ED 18:41
DX: R26.89 Other abnormalities of gait and mobility (principal); H83.02 Labyrinthitis, left ear; R03.0 Elevated blood-pressure reading, without diagnosis of hypertension; J06.9 Acute upper respiratory infection, unspecified
CPT/HCPCS: 99283

== ENCOUNTER 2018-12-28 18:48 | Emergency (ER) | payer MEDICAID ==
--- NOTE | 2018-12-28 19:16 | ED Physician Documentation ---
History of Present Illness - Stated complaint Stated Complaint: RT ARM NUMBNESS - Chief complaint Chief Complaint: Ext Problem - History obtained from History obtained from: Patient - History of Present Illness Timing: Other (She had a recent diagnosis of clinical pneumonia and is on antibiotics. More recently she developed disequilibrium feeling like she is veering to the left. She is on Augmentin which is not helping and meclizine was also trialed without relief. More recently over the last day or so she started to develop numbness in the whole right hand radiating up the right arm. It feels tingly and cold sometimes 2. She does note right-sided neck pain with it. She has had some occipital headaches. There is no fever. No possibility of . 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 : None HEENT: None Psych: None Musculoskeletal: Other Derm: None - Past Surgical History Past Surgical History: Yes Ortho: Other - Present Medications Home Medications: Ambulatory Orders Medication Instructions Recorded Confirmed Omeprazole [PriLOSEC] 20 mg PO DAILY 07/18/18 12/28/18 Biotin 1,000 mcg PO DAILY 12/22/18 12/28/18 Cholecalciferol [Vitamin D3] 5,000 unit PO DAILY 12/22/18 12/28/18 Cyanocobalamin (Vitamin B-12) 2,500 mcg SL DAILY 12/22/18 12/28/18 [Vitamin B-12] Levothyroxine [Synthroid] 88 mcg PO QDAC 12/22/18 12/28/18 Meclizine HCl 25 mg PO Q6H PRN #20 tab.chew 12/22/18 12/28/18 Amox/Clav 500/125 [Augmentin] 1 each PO Q12H 12/28/18 12/28/18 predniSONE [Deltasone] 20 mg PO [id number] #21 tab 12/28/18 - Allergies Allergies/Adverse Reactions: Allergies Allergy/AdvReac Type Severity Reaction Status Date / Time latex Allergy Itching Verified 08/15/18 18:54 morphine Allergy Respiratory Verified 12/28/18 18:54 - Social History Does the pt smoke?: No Smoking Status: Never smoker Does the pt drink ETOH?: Yes Does the pt have substance abuse?: No - Immunizations Immunizations are current?: Yes - POLST Patient has POLST: No PD ED PE NORMAL - Vitals Vital signs reviewed: Yes - General General: Alert and oriented X 3, No acute distress - HEENT HEENT: PERRL, EOMI, Ears normal, Pharynx benign - Neck Neck: Supple, no meningeal sign, No bony TTP - Cardiac Cardiac: RRR, No murmur - Respiratory Respiratory: No respiratory distress, Clear bilaterally - Abdomen Abdomen: Non tender - Extremities Extremities: No deformity, No tenderness to palpate, Other (Mild numbness throughout the right hand compared to the left that extends up to the medial side of the forearm but not the lateral side of the forearm or anything proximal to the elbow. She has symmetric sensation throughout the legs and face. She has normal right hand veneer sheet repairer strength, thumb extension, interosseous strength, and flexion and extension of the wrist.) - Neuro Neuro: Alert and oriented X 3, Normal speech Results - Vitals Vitals: Vital Signs - 24 hr 12/28/18 12/28/18 12/28/18 18:52 20:23 21:53 Temperature 36.4 C L 36.5 C 36.6 C Heart Rate 91 95 89 Respiratory 20 12 20 Rate Blood Pressure 140/101 H 148/95 H 147/85 H O2 Saturation 99 100 99 Oxygen O2 Source Room air - Labs Labs: Laboratory Tests 12/28/18 12/28/18 12/28/18 19:22 19:22 19:25 WBC 9.8 RBC 4.36 Hgb 12.6 Hct 38.5 MCV 88.2 MCH 28.9 MCHC 32.7 RDW 13.4 Plt Count 381 MPV 7.5 L Neut # (Auto) 5.9 Lymph # (Auto) 3.1 [place] # (Auto) 0.6 Eos # (Auto) 0.1 Baso # (Auto) 0.0 Absolute Nucleated RBC 0.01 Nucleated RBC % 0.1 Sodium 136 Potassium 3.8 Chloride 102 Carbon Dioxide 26 Anion Gap 8.0 BUN 15 Creatinine 0.5 Estimated GFR (MDRD) 143 Glucose 96 Calcium 9.1 Total Bilirubin 0.3 AST 18 ALT 21 Alkaline Phosphatase 65 Total Protein 7.8 Albumin 3.8 Globulin 4.0 Albumin/Globulin Ratio 1.0 Lipase 29 Urine Color YELLOW Urine Clarity CLEAR Urine pH 6.5 Ur Specific Hiram 1.025 Urine Protein NEGATIVE Urine Glucose (UA) NEGATIVE Urine Ketones NEGATIVE Urine Occult Blood NEGATIVE Urine Nitrite NEGATIVE Urine Bilirubin NEGATIVE Urine Urobilinogen 0.2 (NORMAL) Ur Leukocyte Esterase NEGATIVE Ur Microscopic Review NOT INDICATED Urine Culture Comments NOT INDICATED Urine HCG, Qual NEGATIVE - Rads (name of study) CT Head Radiology: EMP read contemporaneously (negaive) PD MEDICAL DECISION MAKING - ED course ED course: This is a 33-year-old woman with an upper respiratory infection being treated by her primary care physician who presents with continued cough, but normal exam but complaints of disequilibrium and now findings consistent with a cervical radiculopathy in the right arm and neck which is treated with steroids. Head CT was done to evaluate for central cause and negative. Prior to discharge she also noted months worth of right leg pain/calf pain that was worse tonight. We discussed an ultrasound and she did want to go ahead and do this. The patient and family were counseled as to the diagnosis and need for follow- up. I counseled the patient with regard to signs and symptoms that would necessitate an urgent reevaluation in the emergency department. They understand they are welcome to return at any time if worse or if not improving as expected. This document was made in part using voice recognition software. While efforts are made to proofread this documents, sound alike and grammatical errors may occur. Departure - Departure Disposition: 01 Home, Self Care Clinical Impression: Dizziness, nonspecific, Cervical radiculopathy, Right leg pain Condition: Stable Record reviewed to determine appropriate education?: Yes Instructions: ED Cervical Radiculopathy Prescriptions: predniSONE [Deltasone] 20 mg PO [id number] #21 tab Comments: Call your doctor to arrange a follow-up appointment, make the next available appointment. In the interim, return anytime if worse or if new symptoms develop. Your blood pressure was elevated today on check into the emergency department. This does not mean that you have hypertension, it is a common phenomenon to come to the emergency department and have elevated blood pressure. I recommend that you see your primary care physician within the week to have it rechecked when you are feeling better.
[2018-12-28 19:29] LABS: BASOPHILS % (AUTO) 0.5 %; EOSINOPHILS # (AUTO) 0.1 10^3/uL (0.0-0.7); EOSINOPHILS % (AUTO) 0.8 %; HGB - HEMOGLOBIN 12.6 g/dL (12.0-16.0); LYMPHOCYTES # (AUTO) 3.1 10^3/uL (1.5-3.5); MEAN CORPUSCULAR HEMOGLOBIN 28.9 pg (27.0-31.0); MEAN CORPUSCULAR HGB CONC 32.7 g/dL (32.0-36.0); MEAN CORPUSCULAR VOLUME 88.2 fL (81.0-99.0); MEAN PLATELET VOLUME 7.5 fL (7.9-10.8); MONOCYTES # (AUTO) 0.6 10^3/uL (0.0-1.0); MONOCYTES % (AUTO) 6.2 %; NEUTROPHILS # (AUTO) 5.9 10^3/uL (1.5-6.6); NEUTROPHILS % (AUTO) 60.5 %; PLT - PLATELET COUNT 381 10^3/uL (130-450); RED BLOOD COUNT 4.36 10^6/uL (4.20-5.40); RED CELL DISTRIBUTION WIDTH 13.4 % (12.0-15.0); WHITE BLOOD COUNT 9.8 x10^3/uL (4.8-10.8)
[2018-12-28 19:38] LABS: BILIRUBIN,URINE NEGATIVE (NEGATIVE); GLUCOSE, URINE (UA) NEGATIVE (NEGATIVE); KETONES,URINE (UA) NEGATIVE (NEGATIVE); LEUKOCYTE ESTERASE, URINE NEGATIVE (NEGATIVE); NITRITE,URINE NEGATIVE (NEGATIVE); OCCULT BLOOD,URINE NEGATIVE (NEGATIVE); PH,URINE 6.5 PH (5.0-7.5); PROTEIN,URINE NEGATIVE (NEGATIVE); UROBILINOGEN,URINE 0.2 (NORMAL) E.U./dL (NORMAL)
[2018-12-28 19:41] LABS: CLARITY,URINE CLEAR (CLEAR); HCG UR QUAL NEGATIVE
[2018-12-28 19:49] LABS: ALBUMIN 3.8 g/dL (3.2-5.5); BILIRUBIN,TOTAL 0.3 mg/dL (0.2-1.0); CALCIUM 9.1 mg/dL (8.5-10.3); CREATININE 0.5 mg/dL (0.4-1.0); TOTAL PROTEIN 7.8 g/dL (6.7-8.2)
--- NOTE | 2018-12-28 20:13 | CT Report ---
Reason: R arm numbness, dysequilibrium Procedure Date: 12/28/2018 Accession Number: [id number] / [id number] Procedure: CT - HEAD WO CPT Code: FULL RESULT: EXAM: CT HEAD EXAM DATE: 12/28/2018 07:48 PM. CLINICAL HISTORY: R arm numbness, dysequilibrium. COMPARISON: HEAD W/O 08/05/2018 11:50 AM. TECHNIQUE: Multiaxial CT images were obtained from the foramen magnum to the vertex. Reformats: Sagittal and coronal. IV contrast: None. In accordance with CT protocol optimization, one or more of the following dose reduction techniques were utilized for this exam: automated exposure control, adjustment of mA and/or KV based on patient size, or use of iterative reconstructive technique. FINDINGS: Parenchyma: No intraparenchymal hemorrhage. No evidence of mass, midline shift, or CT findings of infarction. Lorenzo-white differentiation is distinct. Extraaxial Spaces: Normal for age. No subdural or epidural collections. Ventricles: Normal in size and position. Sinuses and Orbits: Imaged paranasal sinuses, orbits, and mastoids show no significant abnormality. Bones: Unremarkable. Other: None. IMPRESSION: Normal head CT. RADIA
[2018-12-28] MEDS ORDERED: predniSONE 20 MG TABLET PO STA (20:19)
[2018-12-28 21:54] VITALS: BP 147/85
--- NOTE | 2018-12-28 22:02 | Ultrasound Report ---
Reason: RLE pain Procedure Date: 12/28/2018 Accession Number: [id number] / [id number] Procedure: US - Duplex Ext Veins Right CPT Code: FULL RESULT: EXAM: RIGHT LOWER EXTREMITY VENOUS ULTRASOUND EXAM DATE: 12/28/2018 09:44 PM. CLINICAL HISTORY: RLE pain. COMPARISON: None. TECHNIQUE: Real-time sonographic vascular imaging was performed by the substance abuse services director through the lower extremity utilizing both color-flow and Doppler spectral analysis. Multiple disability representative static images were saved for review. FINDINGS: Common Femoral Vein (CFV): Normal. CFV-GSV Junction: Normal. Profunda Femoral Vein (PFV): Normal. Femoral Vein (FV) Prox: Normal. Femoral Vein (FV) Mid: Normal. Femoral Vein (FV) Dist: Normal. Popliteal Vein: Normal. Posterior Tibial Veins: Normal. Peroneal Veins: Normal. Contralateral Side CFV: Normal. Other: None. IMPRESSION: No evidence for deep venous thrombosis. [facility]
== END 2018-12-28 21:58 | disposition home or self-care (01) ==
LOC: ED 18:48
DX: R42 Dizziness and giddiness (principal); M54.12 Radiculopathy, cervical region; M79.604 Pain in right leg; R03.0 Elevated blood-pressure reading, without diagnosis of hypertension; E03.9 Hypothyroidism, unspecified
CPT/HCPCS: 36415; 70450; 80053; 81003; 81025; 83690; 85025; 93971; 99283; J7512; 81001; 87086

== ENCOUNTER 2018-12-29 12:42 | Outpatient (CLI) | payer MEDICAID ==
--- NOTE | 2018-12-29 14:43 | Mammography Report ---
REVISED: THIS REPORT WAS ORIGINALLY SIGNED ON 12/29/2018 @ 1444. THE ORDERING PROVIDER FIELD WAS REVISED ON 12/30/2018. Reason: MASTODYNIA Procedure Date: 12/29/2018 Accession Number: [id number] / [id number] Procedure: [facility] - Diagnostic Dig Bilat CPT Code: FULL RESULT: EXAM: Diagnostic Dig Bilat DATE: 12/29/2018 1:33 PM CLINICAL HISTORY: Diagnostic mammogram for mastodynia. No reported risk factors. TECHNIQUE: Bilateral CC, MLO and ML views are obtained. COMPARISON: None FINDINGS: The breasts demonstrate scattered fibroglandular densities bilaterally. A typically benign calcification is seen in the left breast. No suspicious nodules, masses, architectural distortions or calcifications are identified on either side. IMPRESSION: Benign findings RECOMMENDATION: Recommend routine annual Screening mammography starting at the age of 40 unless otherwise clinically indicated. BIRADS CATEGORY 2: Benign findings STANDARD QUALIFYING STATEMENTS: 1. This examination was not reviewed with the aid of Computer-Aided Detection (CAD). 2. A negative or benign imaging report should not delay biopsy if clinically suspicious findings are present. Consider surgical consultation if warrented. More than 5% of cancers are not identified by imaging. 3. Dense breasts may obscure an underlying neoplasm. 4. This examination was reviewed with the aid of 3D imaging (tomography). [facility]
== END 2018-12-29 12:43 | disposition home or self-care (01) ==
LOC: DI 12:42
PROVIDERS: ATTEND Obstetrics & Gynecology
DX: N64.4 Mastodynia (principal)
CPT/HCPCS: 77066

== ENCOUNTER 2018-12-30 20:42 | Emergency (ER) | payer MEDICAID ==
[2018-12-30] MEDS ORDERED: methylPREDNISolone SUCCINATE 1,000 MG in SODIUM CHLORIDE 0.9% 250 ML IV STA (21:50)
[2018-12-30 22:22] LABS: BASOPHILS # (AUTO) 0.1 10^3/uL (0.0-0.1); BASOPHILS % (AUTO) 0.8 %; EOSINOPHILS # (AUTO) 0.1 10^3/uL (0.0-0.7); EOSINOPHILS % (AUTO) 0.5 %; HGB - HEMOGLOBIN 12.3 g/dL (12.0-16.0); LYMPHOCYTES # (AUTO) 4.5 10^3/uL (1.5-3.5); LYMPHOCYTES % (AUTO) 38.1 %; MEAN CORPUSCULAR HEMOGLOBIN 28.7 pg (27.0-31.0); MEAN CORPUSCULAR HGB CONC 32.9 g/dL (32.0-36.0); MEAN CORPUSCULAR VOLUME 87.1 fL (81.0-99.0); MEAN PLATELET VOLUME 7.7 fL (7.9-10.8); MONOCYTES # (AUTO) 0.7 10^3/uL (0.0-1.0); MONOCYTES % (AUTO) 6.1 %; NEUTROPHILS # (AUTO) 6.4 10^3/uL (1.5-6.6); NEUTROPHILS % (AUTO) 54.5 %; PLT - PLATELET COUNT 351 10^3/uL (130-450); RED BLOOD COUNT 4.28 10^6/uL (4.20-5.40); RED CELL DISTRIBUTION WIDTH 13.5 % (12.0-15.0); WHITE BLOOD COUNT 11.7 x10^3/uL (4.8-10.8)
--- NOTE | 2018-12-30 22:37 | ED Physician Documentation ---
PD HPI FOCAL NEURO - Stated complaint Stated Complaint: L NUMBNESS - Chief complaint Chief Complaint: Neuro - History obtained from History obtained from: Patient, Friend - History of Present Illness Timing - onset: How many days ago (2) Timing - duration: Days (2) Timing - details: Gradual onset, Still present Severity of deficit: Moderate Weakness: No: Face, Arm, Hand, Leg, Foot, Right, Left Numbness: Face, Arm, Hand, Right, Left Associated symptoms: No: Headache, Nausea / vomiting, Seizure, Syncope, Fall, Head injury, Chest pain, Neck pain, Back pain, Fever Contributing factors: negative: Anticoagulated, Vascular dz, Atrial fibrillation Baseline status: positive: A&OX3, ambulatory, indep Similar symptoms before: Diagnosis (cervical radiulopathy) Recently seen: Emergency Dept - Additional information Additional information: 33-year-old female who has been seen in the emergency department recently for numbness to her right arm and she was diagnosed with cervical radiculopathy has now developed numbness to the left side of her face and her left arm. The patient has been seen in the emergency department over the past 8 months for intermittent dizziness diagnosis labyrinthitis and she has been seen 10 days ago for a problem with her balance. She continues to have symptoms intermittently and she states that her dizziness symptoms will last 1-2 weeks and will resolve. She also indicates intermittent diplopia and intermittent episodes of left eye vision fading that is transient. Review of Systems Constitutional: reports: Fatigue. denies: Fever, Chills Eyes: reports: Other (intermittent diplopia, intermittent left eye vision fading that is transient. Symptoms for months.) Ears: denies: Ear pain Nose: reports: Congestion. denies: Rhinorrhea / runny nose Throat: denies: Sore throat Cardiac: reports: Other (breast sensitivity). denies: Chest pain / pressure, Palpitations Respiratory: denies: Dyspnea, Cough GI: denies: Abdominal Pain, Nausea, Vomiting : denies: Dysuria, Frequency Skin: denies: Rash Musculoskeletal: reports: Extremity pain (LE bilaterally). denies: Neck pain, Back pain, Extremity swelling Neurologic: reports: Numbness. 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 : None HEENT: None Psych: None Musculoskeletal: Other Derm: None - Past Surgical History Past Surgical History: Yes Ortho: Other - Present Medications Home Medications: Ambulatory Orders Medication Instructions Recorded Confirmed Omeprazole [PriLOSEC] 20 mg PO DAILY 07/18/18 12/28/18 Biotin 1,000 mcg PO DAILY 12/22/18 12/28/18 Cholecalciferol [Vitamin D3] 5,000 unit PO DAILY 12/22/18 12/28/18 Cyanocobalamin (Vitamin B-12) 2,500 mcg SL DAILY 12/22/18 12/28/18 [Vitamin B-12] Levothyroxine [Synthroid] 88 mcg PO QDAC 12/22/18 12/28/18 Meclizine HCl 25 mg PO Q6H PRN #20 tab.chew 12/22/18 12/28/18 Amox/Clav 500/125 [Augmentin] 1 each PO Q12H 12/28/18 12/28/18 predniSONE [Deltasone] 20 mg PO [id number] #21 tab 12/28/18 - Allergies Allergies/Adverse Reactions: Allergies Allergy/AdvReac Type Severity Reaction Status Date / Time latex Allergy Itching Verified 12/30/18 20:50 morphine Allergy Respiratory Verified 12/30/18 20:50 - Social History Does the pt smoke?: No Smoking Status: Never smoker Does the pt drink ETOH?: Yes Does the pt have substance abuse?: No - Immunizations Immunizations are current?: Yes - POLST Patient has POLST: No PD ED PE NORMAL - Vitals Vital signs reviewed: Yes (hypertensive mild ) - General General: Alert and oriented X 3, No acute distress, Well developed/nourished - HEENT HEENT: Atraumatic, PERRL, EOMI, Ears normal, Moist mucous membranes, Pharynx benign, Dentition benign, Other (There is nystagmus to the left ) - Neck Neck: Supple, no meningeal sign, No bony TTP - Cardiac Cardiac: RRR, No murmur - Respiratory Respiratory: No respiratory distress, Clear bilaterally - Abdomen Abdomen: Soft, Non tender - Back Back: No CVA TTP, No spinal TTP - Derm Derm: Normal color, Warm and dry, No rash - Extremities Extremities: No deformity, No edema - Neuro Neuro: Alert and oriented X 3, steel rule inspector 2-12 intact, No motor deficit, Normal speech, Other (sensory distribution is right arm laterally, left face from forehead to corner of the mouth, left hand and forearm distally ) Eye Opening: Spontaneous Motor: Obeys Commands Verbal: Oriented GCS Score: 15 - Psych Psych: Normal mood, Normal affect NIHSS - Level of Consciousness Level of consciousness: (0) Alert, Keenly responsive LOC Questions: (0) Answers both Q's correct LOC Commands: (0) Performs both correctly - Gaze Best Gaze: (0) Normal - Visual Visual: (0) No loss - Facial Palsy Facial Palsy: (0) Normal, symmetrical movement - Motor Arms (both separate) Motor Arm (right): (0) No drift Motor Arm (left): (0) No drift - Motor Legs (both separate) Motor Leg (right): (0) No drift Motor Leg (left): (0) No drift - Limb Ataxia Limb Ataxia: (0) Absent - Sensory Sensory: (1) [id number] loss - Best Language Best Language: (0) No aphasia - Dysarthria Dysarthria: (0) Normal - Extinction and Inattention (formally neg Extinction and inattention: (0) No abnormality - Total Score/Results Total Score/Result: 1 Results - Vitals Vitals: Vital Signs - 24 hr 12/30/18 12/30/18 12/30/18 20:47 21:36 22:53 Temperature 36.2 C L Heart Rate 92 90 85 Respiratory 16 16 15 Rate Blood Pressure 129/84 H 131/109 H 129/73 O2 Saturation 100 100 100 Oxygen O2 Source Room air - Labs Labs: Laboratory Tests 12/30/18 12/30/18 12/30/18 22:15 22:15 22:15 WBC 11.7 H RBC 4.28 Hgb 12.3 Hct 37.3 MCV 87.1 MCH 28.7 MCHC 32.9 RDW 13.5 Plt Count 351 MPV 7.7 L Neut # (Auto) 6.4 Lymph # (Auto) 4.5 H [place] # (Auto) 0.7 Eos # (Auto) 0.1 Baso # (Auto) 0.1 Absolute Nucleated RBC 0.00 Nucleated RBC % 0.0 ESR 41 H Sodium 136 Potassium 3.7 Chloride 100 L Carbon Dioxide 27 Anion Gap 9.0 BUN 17 Creatinine 0.5 Estimated GFR (MDRD) 143 Glucose 97 Calcium 9.0 Total Bilirubin 0.7 AST 17 ALT 19 Alkaline Phosphatase 61 C-Reactive Protein Total Protein 7.4 Albumin 3.7 Globulin 3.7 Albumin/Globulin Ratio 1.0 Lipase 28 Serum HCG, Qual 12/30/18 12/30/18 22:15 22:15 WBC RBC Hgb Hct MCV MCH MCHC RDW Plt Count MPV Neut # (Auto) Lymph # (Auto) [place] # (Auto) Eos # (Auto) Baso # (Auto) Absolute Nucleated RBC Nucleated RBC % ESR Sodium Potassium Chloride Carbon Dioxide Anion Gap BUN Creatinine Estimated GFR (MDRD) Glucose Calcium Total Bilirubin AST ALT Alkaline Phosphatase C-Reactive Protein 1.4 H Total Protein Albumin Globulin Albumin/Globulin Ratio Lipase Serum HCG, Qual NEGATIVE PD MEDICAL DECISION MAKING - ED course Complexity details: reviewed old records, reviewed results, re-evaluated patient, considered differential, d/w patient, d/w family, d/w decorating consultant (Constantino neurology [facility]: recomends delay in treatment until MRI is obtained as this will not affect overall outcome and will aid in diagnostics as there is a flare finding on MRI that can be helpful in deliniating specificity. ) ED course: 33-year-old female with intermittent symptoms for 8 months to a year of dizziness and diplopia and now is developed arm and facial numbness. Her clinical history is consistent with multiple sclerosis and we do not have capability of doing MRI here this evening. I have consulted Dr. Meeks at [facility] and he recommends MRI prior to initiation of any treatment. We do have a spot available tomorrow for the patient to get MRI and have asked her to return to the emergency department to complete the study and potentially begin treatment. She will need MRI brain with and without. Departure - Departure Disposition: 01 Home, Self Care Clinical Impression: Facial paresthesia Paresthesia of hand Qualifiers: Laterality: bilateral Qualified Code(s): R20.2 - Paresthesia of skin Condition: Stable Instructions: ED Paraesthesias Follow-Up: Mary Jo Schafer DNP [Primary Care Provider] - Comments: Today it appears your numbness symptoms and symptoms you have been having previously are consistent with the possibility of multiple sclerosis. In order to make this diagnosis we need to do an MRI of the brain with and without contrast. Return to the emergency department tomorrow morning before 11 AM so that we can complete this study and potentially begin treatment.
[2018-12-30 22:42] LABS: ALBUMIN 3.7 g/dL (3.2-5.5); BILIRUBIN,TOTAL 0.7 mg/dL (0.2-1.0); CREATININE 0.5 mg/dL (0.4-1.0); TOTAL PROTEIN 7.4 g/dL (6.7-8.2)
[2018-12-30 23:37] LABS: HCG,QUALITATIVE BLOOD NEGATIVE
[2018-12-30 23:46] VITALS: BP 116/71
== END 2018-12-30 23:46 | disposition home or self-care (01) ==
LOC: ED 20:42
DX: R20.2 Paresthesia of skin (principal); R42 Dizziness and giddiness; H53.2 Diplopia; E03.9 Hypothyroidism, unspecified
CPT/HCPCS: 36415; 80053; 83690; 84703; 85025; 85651; 86140; 99284

== ENCOUNTER 2018-12-31 10:18 | Emergency (ER) | payer MEDICAID ==
--- NOTE | 2018-12-31 10:41 | ED Physician Documentation ---
PD HPI FOCAL NEURO - Stated complaint Stated Complaint: ARM/FACE NUMBNESS - Chief complaint Chief Complaint: Neuro - History obtained from History obtained from: Patient - History of Present Illness Timing - onset: How many days ago Timing - duration: Days (has had numbness in left arm for days/weeks intermittently and now left face as well. Having pain right leg down back/side. Seen in ED [facility] and told to return for MRI today (prelim time opening was 11 am).) Timing - details: Gradual onset, Waxing and waning Severity of deficit: Mild, Moderate Weakness: No: Face, Arm, Leg Numbness: Face, Arm, Left Associated symptoms: No: Headache, Nausea / vomiting, Neck pain Review of Systems Constitutional: denies: Fever, Chills Nose: denies: Rhinorrhea / runny nose, Congestion Throat: denies: Sore throat Respiratory: denies: Cough PD PAST MEDICAL HISTORY - Past Medical History Cardiovascular: None Respiratory: None Endocrine/Autoimmune: HyPOthyroidism, Other GI: None 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: None : None HEENT: None Psych: None Musculoskeletal: Other Derm: None - Past Surgical History Past Surgical History: Yes Ortho: Other - Present Medications Home Medications: Ambulatory Orders Medication Instructions Recorded Confirmed Omeprazole [PriLOSEC] 20 mg PO DAILY 07/18/18 12/28/18 Biotin 1,000 mcg PO DAILY 12/22/18 12/28/18 Cholecalciferol [Vitamin D3] 5,000 unit PO DAILY 12/22/18 12/28/18 Cyanocobalamin (Vitamin B-12) 2,500 mcg SL DAILY 12/22/18 12/28/18 [Vitamin B-12] Levothyroxine [Synthroid] 88 mcg PO QDAC 12/22/18 12/28/18 Meclizine HCl 25 mg PO Q6H PRN #20 tab.chew 12/22/18 12/28/18 Amox/Clav 500/125 [Augmentin] 1 each PO Q12H 12/28/18 12/28/18 predniSONE [Deltasone] 20 mg PO [id number] #21 tab 12/28/18 - Allergies Allergies/Adverse Reactions: Allergies Allergy/AdvReac Type Severity Reaction Status Date / Time latex Allergy Itching Verified 12/31/18 10:27 morphine Allergy Respiratory Verified 12/31/18 10:27 - Social History Does the pt smoke?: No Smoking Status: Never smoker Does the pt drink ETOH?: Yes Does the pt have substance abuse?: No - Immunizations Immunizations are current?: Yes - POLST Patient has POLST: No PD ED PE NORMAL - Vitals Vital signs reviewed: Yes - General General: Alert and oriented X 3, No acute distress, Well developed/nourished - Neck Neck: Supple, no meningeal sign, No bony TTP, No adenopathy - Cardiac Cardiac: RRR, No murmur - Respiratory Respiratory: Clear bilaterally - Derm Derm: Normal color, Warm and dry - Neuro Neuro: Alert and oriented X 3, No motor deficit, Normal speech, Other (subjective less sensation left face and upper ext.) Results - Vitals Vitals: Vital Signs - 24 hr 12/31/18 12/31/18 12/31/18 10:26 11:12 16:06 Temperature 36.0 C L Heart Rate 87 88 65 Respiratory 14 14 14 Rate Blood Pressure 136/95 H 136/95 H 122/78 O2 Saturation 98 98 97 Oxygen O2 Source Room air PD MEDICAL DECISION MAKING - ED course Complexity details: reviewed results (MRI prelim is normal. Consider then peripheral or cord cause for arm numbness and leg pain, though not able to explain the facial numbness peripherally. ), considered differential, d/w patient Departure - Departure Disposition: 01 Home, Self Care Clinical Impression: Arm numbness, Numbness of face Condition: Stable Record reviewed to determine appropriate education?: Yes Instructions: ED Paraesthesias Follow-Up: Mary Jo Schafer DNP [Primary Care Provider] - Comments: The MRI preliminary report did not show any acute abnormalities. Presume then the numbness in the arm and face may relate more to peripheral nerve problems or "pinched nerves" in the neck (for the arm). Follow-up with your primary care for further evaluation. Discharge Date/Time: 12/31/18 16:07
--- NOTE | 2018-12-31 15:50 | MRI Report ---
Reason: right arm numbness, headaches Procedure Date: 12/31/2018 Accession Number: [id number] / [id number] Procedure: MRI - Brain W/O CPT Code: FULL RESULT: EXAM: MRI BRAIN WITHOUT CONTRAST COMPARISON: HEAD W/O 12/28/2018 7:48 PM. CLINICAL HISTORY: Right arm numbness, headaches. TECHNIQUE: Multiplanar multisequence imaging is performed through the head without contrast. FINDINGS: Diffusion-weighted imaging shows no acute infarct. Gradient sequence shows no evident prior parenchymal hemorrhage. T2 FLAIR imaging shows minimal white matter T2 prolongation, no masses. No abnormal FLAIR signal in the vertebral arteries. T2 spin echo imaging shows no posterior fossa masses. No prior posterior fossa infarcts. No abnormal elevated T1 signal in the brain parenchyma. No developmental anomalies. Pituitary fossa, clivus and foramen magnum are unremarkable. Visualized orbits, paranasal sinuses and mastoids are relatively unremarkable. No calvarial signal abnormality. Mesial temporal structures are unremarkable. IMPRESSION: No acute infarct, mass, or other discrete acute process identified.
[2018-12-31 16:07] VITALS: BP 122/78
== END 2018-12-31 16:07 | disposition home or self-care (01) ==
LOC: ED 10:18
DX: R20.0 Anesthesia of skin (principal); E03.9 Hypothyroidism, unspecified
CPT/HCPCS: 70551; 99282; 99283

== ENCOUNTER 2019-02-20 17:30 | Emergency (ER) | payer MEDICAID ==
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
[2019-02-20 19:25] VITALS: BP 146/76
== END 2019-02-20 19:25 | disposition home or self-care (01) ==
LOC: ED 17:30
DX: G62.9 Polyneuropathy, unspecified (principal); R03.0 Elevated blood-pressure reading, without diagnosis of hypertension
CPT/HCPCS: 99283

== ENCOUNTER 2019-02-23 08:19 | Outpatient (CLI) | payer MEDICAID | END 2019-02-23 23:59 | disposition home or self-care (01) | LOC: LAB.N 08:19 | PROVIDERS: ATTEND Internal Medicine Endocrinology, Diabetes & Metabolism | DX: E27.8 Other specified disorders of adrenal gland (principal) | CPT/HCPCS: 36415; 82533 ==

== ENCOUNTER 2019-02-23 10:33 | Outpatient (CLI) | payer MEDICAID ==
--- NOTE | 2019-02-23 13:19 | Ultrasound Report ---
Reason: ABDOMINAL MASS, GERD Procedure Date: 02/23/2019 Accession Number: [id number] / [id number] Procedure: US - Abdomen Complete CPT Code: FULL RESULT: EXAM: ABDOMEN ULTRASOUND EXAM DATE: 02/23/2019 11:08 AM. CLINICAL HISTORY: Abdominal mass, gastroesophageal reflux disease. COMPARISON: ABDOMEN/PELVIS W/ 07/15/2018 2:36 PM. TECHNIQUE: Real-time scanning was performed with static images obtained. FINDINGS: Liver: Normal in size and echotexture. Right lobe measures at least 17.4 cm. Main portal vein flow: Hepatopetal. Gallbladder: Normal. No stones, wall thickening, or sonographic Medrano's sign. Biliary System: Common bile duct measures 3 mm. No intrahepatic or extrahepatic ductal dilatation. Pancreas: Visualized portion is unremarkable. Kidneys: Right: 11.4 cm longitudinally. Normal. No contour-deforming mass, stones, or hydronephrosis. Left: 12.5 cm longitudinally. Normal. No contour-deforming mass, stones, or hydronephrosis. Spleen: 10.2 cm. Normal in size and echotexture. Aorta and Inferior Vena Cava: Unremarkable. Other: None. IMPRESSION: No abdominal mass is detected. RADIA
== END 2019-02-23 10:34 | disposition home or self-care (01) ==
LOC: DI 10:33
PROVIDERS: ATTEND Nurse Practitioner
DX: R19.02 Left upper quadrant abdominal swelling, mass and lump (principal); K21.9 Gastro-esophageal reflux disease without esophagitis; E27.8 Other specified disorders of adrenal gland
CPT/HCPCS: 36415; 76700; 82533

== ENCOUNTER 2019-03-01 08:27 | Outpatient (CLI) | payer MEDICAID ==
[2019-03-01 12:48] LABS: BASOPHILS % (AUTO) 0.6 %; EOSINOPHILS # (AUTO) 0.1 10^3/uL (0.0-0.7); EOSINOPHILS % (AUTO) 1.1 %; HGB - HEMOGLOBIN 12.3 g/dL (12.0-16.0); LYMPHOCYTES # (AUTO) 2.5 10^3/uL (1.5-3.5); LYMPHOCYTES % (AUTO) 37.1 %; MEAN CORPUSCULAR HEMOGLOBIN 28.3 pg (27.0-31.0); MEAN CORPUSCULAR VOLUME 85.6 fL (81.0-99.0); MEAN PLATELET VOLUME 8.3 fL (7.9-10.8); MONOCYTES # (AUTO) 0.4 10^3/uL (0.0-1.0); MONOCYTES % (AUTO) 5.9 %; NEUTROPHILS # (AUTO) 3.8 10^3/uL (1.5-6.6); NEUTROPHILS % (AUTO) 55.3 %; PLT - PLATELET COUNT 342 10^3/uL (130-450); RED BLOOD COUNT 4.37 10^6/uL (4.20-5.40); RED CELL DISTRIBUTION WIDTH 13.1 % (12.0-15.0); WHITE BLOOD COUNT 6.8 x10^3/uL (4.8-10.8)
[2019-03-01 13:16] LABS: ALBUMIN 3.5 g/dL (3.2-5.5); ALBUMIN/GLOBULIN RATIO 1.1 (1.0-2.2); BILIRUBIN,TOTAL 0.5 mg/dL (0.2-1.0); CALCIUM 8.6 mg/dL (8.5-10.3); CREATININE 0.5 mg/dL (0.4-1.0); TOTAL PROTEIN 6.8 g/dL (6.7-8.2)
[2019-03-01 13:17] LABS: THYROID STIMULATING HORMONE 2.52 uIU/mL (0.34-5.60)
[2019-03-01 13:19] LABS: FREE T4 (FREE THYROXINE) 0.99 ng/dL (0.58-1.64)
[2019-03-01 13:31] LABS: FOLATE 8.55 ng/mL (5.90 - >24.8)
== END 2019-03-01 08:28 | disposition home or self-care (01) ==
LOC: LAB.N 08:27
PROVIDERS: ATTEND Internal Medicine Endocrinology, Diabetes & Metabolism
DX: E03.9 Hypothyroidism, unspecified (principal); R20.2 Paresthesia of skin; E27.8 Other specified disorders of adrenal gland; R03.0 Elevated blood-pressure reading, without diagnosis of hypertension
CPT/HCPCS: 36415; 80053; 81599; 82607; 82627; 82746; 83735; 84100; 84403; 84439; 84443; 84481; 85025; 85651; 86140

== ENCOUNTER 2019-03-28 08:00 | Outpatient (CLI) | payer MEDICAID ==
[2019-03-28 13:45] LABS: BASOPHILS # (AUTO) 0.1 10^3/uL (0.0-0.1); BASOPHILS % (AUTO) 0.6 %; EOSINOPHILS # (AUTO) 0.1 10^3/uL (0.0-0.7); EOSINOPHILS % (AUTO) 0.6 %; HGB - HEMOGLOBIN 12.2 g/dL (12.0-16.0); LYMPHOCYTES # (AUTO) 2.9 10^3/uL (1.5-3.5); LYMPHOCYTES % (AUTO) 34.5 %; MEAN CORPUSCULAR HGB CONC 33.7 g/dL (32.0-36.0); MEAN CORPUSCULAR VOLUME 86.1 fL (81.0-99.0); MONOCYTES # (AUTO) 0.5 10^3/uL (0.0-1.0); MONOCYTES % (AUTO) 5.7 %; NEUTROPHILS % (AUTO) 58.6 %; PLT - PLATELET COUNT 384 10^3/uL (130-450); WHITE BLOOD COUNT 8.5 x10^3/uL (4.8-10.8)
[2019-03-28 14:04] LABS: CHOL/HDL RATIO 3.9 (<4.4); CHOLESTEROL 169 mg/dL; GLUCOSE,FASTING 98 mg/dL (70-100); HDL CHOLESTEROL 43 mg/dL; LDL CHOLESTEROL,CALCULATED 108 mg/dL; LDL/HDL RATIO 2.5 (<4.4); VLDL CHOLESTEROL 18 mg/dL
[2019-03-28 14:13] LABS: THYROID STIMULATING HORMONE 3.72 uIU/mL (0.34-5.60)
[2019-03-28 14:23] LABS: HEMOGLOBIN A1C 0.47 g/dL; HEMOGLOBIN A1C % 5.5 % (4.6-6.2)
[2019-03-28 14:41] LABS: FOLLICLE STIMULATING HORMONE 3.36 mIU/mL; LUTEINIZING HORMONE 5.19 mIU/mL
[2019-03-29 09:16] LABS: HEPATITIS B SURFACE ANTIGEN NON-REACTIVE (NON-REACTIVE)
[2019-03-29 13:06] LABS: HIV AG/AB 4TH GEN NON-REACTIVE (NON-REACTIVE)
[2019-03-29 13:31] LABS: HEPATITIS C ANTIBODY NON-REACTIVE (NON-REACTIVE)
[2019-03-30 11:16] LABS: HSV 2 IGG TYPE SPECIFIC AB <0.90 index
[2019-03-30 21:41] LABS: DHEA SULFATE 222 mcg/dL (23-266)
== END 2019-03-28 23:59 | disposition home or self-care (01) ==
LOC: LAB.N 08:00
PROVIDERS: ATTEND Registered Nurse
DX: Z00.00 Encounter for general adult medical examination without abnormal findings (principal); Z11.3 Encounter for screening for infections with a predominantly sexual mode of transmission; E66.9 Obesity, unspecified
CPT/HCPCS: 36415; 80061; 81599; 82627; 82947; 83001; 83002; 83036; 83721; 84443; 85025; 86695; 86696; 86803; 87340; 87389

== ENCOUNTER 2019-04-14 17:26 | Emergency (ER) | payer MEDICAID ==
--- NOTE | 2019-04-14 19:15 | XRAY Report ---
Reason: Chest Pain Procedure Date: 04/14/2019 Accession Number: [id number] / [id number] Procedure: XR - Chest 1 View X-Ray CPT Code: 99881 FULL RESULT: EXAM: CHEST RADIOGRAPHY EXAM DATE: 04/14/2019 07:03 PM. CLINICAL HISTORY: Right chest pain. COMPARISON: CHEST 2 VIEW 08/15/2018 7:52 PM. TECHNIQUE: 1 view. FINDINGS: Lungs/Pleura: No focal opacities evident. No pleural effusion. No pneumothorax. Mediastinum: Within exam limitations, the cardiomediastinal contour is normal. Other: No osseous abnormality identified. IMPRESSION: Normal single view chest. RADIA
[2019-04-14 19:43] LABS: BASOPHILS % (AUTO) 0.3 %; EOSINOPHILS # (AUTO) 0.1 10^3/uL (0.0-0.7); EOSINOPHILS % (AUTO) 0.5 %; HGB - HEMOGLOBIN 12.6 g/dL (12.0-16.0); LYMPHOCYTES # (AUTO) 3.3 10^3/uL (1.5-3.5); MEAN CORPUSCULAR HEMOGLOBIN 28.5 pg (27.0-31.0); MEAN CORPUSCULAR HGB CONC 33.1 g/dL (32.0-36.0); MEAN CORPUSCULAR VOLUME 86.3 fL (81.0-99.0); MEAN PLATELET VOLUME 7.7 fL (7.9-10.8); MONOCYTES # (AUTO) 0.5 10^3/uL (0.0-1.0); MONOCYTES % (AUTO) 5.4 %; NEUTROPHILS # (AUTO) 6.3 10^3/uL (1.5-6.6); NEUTROPHILS % (AUTO) 61.8 %; PLT - PLATELET COUNT 382 10^3/uL (130-450); RED BLOOD COUNT 4.42 10^6/uL (4.20-5.40); RED CELL DISTRIBUTION WIDTH 13.5 % (12.0-15.0); WHITE BLOOD COUNT 10.1 x10^3/uL (4.8-10.8)
[2019-04-14 20:01] LABS: ALBUMIN 3.9 g/dL (3.2-5.5); BILIRUBIN,TOTAL 0.4 mg/dL (0.2-1.0); CREATININE 0.7 mg/dL (0.4-1.0); TOTAL PROTEIN 7.8 g/dL (6.7-8.2)
--- NOTE | 2019-04-14 20:36 | ED Physician Documentation ---
History of Present Illness - Stated complaint Stated Complaint: RT ARM PX/HEADACHE/NAUSEA - Chief complaint Chief Complaint: General - History obtained from History obtained from: Patient - History of Present Illness Timing: Yesterday Pain level now: 4 Improved by: no ameliorating factors Worsened by: movement, inspiration - Additonal information Additional information: c/o episodic RUE pain since yesterday, radiates to posterior aspect of neck and to upper back, upper chest. Sharp at times. Patient suspects it is a "pinched nerve" (per patient), called PMD's office and was told that she should go to ED because she has "history of arrhythmia" (per patient; does not know which arr hythmia but involved "skipped beats"). Review of Systems Constitutional: reports: Reviewed and negative Cardiac: reports: Chest pain / pressure. denies: Palpitations, Pedal edema, Calf pain Respiratory: denies: Dyspnea, Cough GI: reports: Reviewed and negative Musculoskeletal: reports: Neck pain. 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 : None HEENT: None Psych: None Musculoskeletal: Other Derm: None - Past Surgical History Past Surgical History: Yes Ortho: Other - Present Medications Home Medications: Ambulatory Orders Medication Instructions Recorded Confirmed Omeprazole [PriLOSEC] 20 mg PO DAILY 07/18/18 04/14/19 Cholecalciferol [Vitamin D3] 5,000 unit PO DAILY 12/22/18 04/14/19 Cyanocobalamin (Vitamin B-12) 2,500 mcg SL DAILY 12/22/18 04/14/19 [Vitamin B-12] Levothyroxine [Synthroid] 88 mcg PO QDAC 12/22/18 04/14/19 - Allergies Allergies/Adverse Reactions: Allergies Allergy/AdvReac Type Severity Reaction Status Date / Time latex Allergy Itching Verified 02/20/19 17:40 morphine Allergy Respiratory Verified 02/20/19 17:40 - Social History Does the pt smoke?: No Smoking Status: Never smoker Does the pt drink ETOH?: Yes Does the pt have substance abuse?: Yes - Immunizations Immunizations are current?: Yes - POLST Patient has POLST: No PD ED PE NORMAL - Vitals Vital signs reviewed: Yes - General General: Alert and oriented X 3, No acute distress, Well developed/nourished - Neck Neck: Supple, no meningeal sign, No bony TTP - Cardiac Cardiac: RRR, No murmur, No gallop, No rub - Respiratory Respiratory: No respiratory distress, Clear bilaterally - Abdomen Abdomen: Soft, Non tender - Back Back: No spinal TTP - Derm Derm: Normal color, Warm and dry Results - Vitals Vitals: Vital Signs - 24 hr 04/14/19 04/14/19 17:39 21:15 Temperature 36 C L 36.5 C Heart Rate 86 85 Respiratory 18 18 Rate Blood Pressure 142/100 H 128/88 H O2 Saturation 100 98 Oxygen O2 Source Room air - EKG (time done) No standard instances Rate: Rate (enter#) Rhythm: NSR Bland: Normal Intervals: Normal MD QRS: Normal Ischemia: Normal ST segments - Labs Labs: Laboratory Tests 04/14/19 04/14/19 04/14/19 19:17 19:17 19:17 WBC 10.1 RBC 4.42 Hgb 12.6 Hct 38.1 MCV 86.3 MCH 28.5 MCHC 33.1 RDW 13.5 Plt Count 382 MPV 7.7 L Neut # (Auto) 6.3 Lymph # (Auto) 3.3 Sherman # (Auto) 0.5 Eos # (Auto) 0.1 Baso # (Auto) 0.0 Absolute Nucleated RBC 0.00 Nucleated RBC % 0.0 Sodium 136 Potassium 3.6 Chloride 102 Carbon Dioxide 24 Anion Gap 10.0 BUN 14 Creatinine 0.7 Estimated GFR (MDRD) 97 Glucose 92 Calcium 9.0 Total Bilirubin 0.4 AST 16 ALT 18 Alkaline Phosphatase 67 Troponin I < 0.04 Total Protein 7.8 Albumin 3.9 Globulin 3.9 Albumin/Globulin Ratio 1.0 Lipase 25 - Rads (name of study) chest xray Radiology: Prelim report reviewed, See rad report PD MEDICAL DECISION MAKING - ED course Complexity details: reviewed old records, reviewed results, re-evaluated patient, considered differential, d/w patient ED course: 14th ED visit on [facility] over past 12 months ([facility] and ED) Departure - Departure Disposition: 01 Home, Self Care Clinical Impression: Right arm pain Chest pain Qualifiers: Chest pain type: unspecified Qualified Code(s): R07.9 - Chest pain, unspecified Condition: Good Instructions: ED Chest Pain Atypical Unkn Cause, ED Cervical Radiculopathy Follow-Up: Jj Paiz PA-C [Primary Care Provider] - Within 1 week Discharge Date/Time: 04/14/19 21:16
[2019-04-14 21:16] VITALS: BP 128/88
== END 2019-04-14 21:16 | disposition home or self-care (01) ==
LOC: ED 17:26
DX: M79.601 Pain in right arm (principal); R07.9 Chest pain, unspecified; M54.6 Pain in thoracic spine; M54.2 Cervicalgia
CPT/HCPCS: 36415; 71045; 80053; 83690; 84484; 85025; 93005; 99283

== ENCOUNTER 2019-05-10 21:31 | Emergency (ER) | payer MEDICAID ==
--- NOTE | 2019-05-10 22:56 | ED Physician Documentation ---
PD HPI HEADACHE - Stated complaint Stated Complaint: GARLAND/DIZZY/CHILLS - Chief complaint Chief Complaint: Neuro - History obtained from History obtained from: Patient - History of Present Illness Timing - onset: How many weeks ago (2) Timing - duration: Seconds Timing - details: Gradual onset, Intermittant Pain level max: >10 Location: Front, Left Quality: Tightness Associated symptoms: Nausea. No: Fever, Stiff neck, Vomiting, Numbness, Syncope, Seizure, Eye pain, Vision changes Improved by: Nothing Similar symptoms before: Has not had sx before Recently seen: Clinic - Additional information Additional information: This is a 34-year-old woman who presents with complaints that couple weeks ago she started getting a headache along the left mandaeism she describes it as "bad" she been taking at thousand milligrams of Tylenol twice a day. Today the headache got abruptly more severe it feels like a vice is being tightened on her head to the point the pressure gets so severe she feels like she is going to pass out. She gets really dizzy and has like a brain freeze that lasts for about 5 seconds. She has not passed out. She describes feeling like she is drunk. She did see her primary care provider about this headache and was told it was a migraine although she has no history of migraines. There was no injury to her head. Patient has had an ongoing sinus infection for about 6 weeks and went through 2 rounds of antibiotics including Augmentin. She feels like her symptoms are improved but her left side of her forehead is turpentine distiller to the touch. She denies ear pain or sore throat. She does have a hoarse voice but no coughing. She is felt nauseous with the symptoms but no vomiting. She has some mild photophobia and her eyes feel "tired" but she has not noted visual changes. Patient was referred to a solution sales senior executive and had an appointment with them today they noted that her heart rate was high. She denies palpitations or chest pain. She denies use of alcohol or tobacco. She does smoke marijuana but says that she is down to just 2 hits a day because it creates anxiety for her. She is not employed and lives with her 12-year-old daughter. Review of Systems Constitutional: denies: Fever Eyes: reports: Photophobia. denies: Loss of vision, Decreased vision Ears: denies: Ear pain, Drainage/discharge Nose: reports: Sinus pressure / pain (Left frontal). denies: Rhinorrhea / runny nose Throat: denies: Sore throat Cardiac: reports: Palpitations. denies: Chest pain / pressure Respiratory: denies: Dyspnea, Cough GI: reports: Nausea. denies: Abdominal Pain, Vomiting : reports: LMP (April 15). denies: Dysuria, Now EGA Musculoskeletal: denies: Neck pain, Back pain Neurologic: reports: Near syncope, Headache, Other (Dizziness). 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 : None HEENT: None Psych: None Musculoskeletal: Other Derm: None - Past Surgical History Past Surgical History: Yes Ortho: Other - Present Medications Home Medications: Ambulatory Orders Medication Instructions Recorded Confirmed Omeprazole [PriLOSEC] 20 mg PO DAILY 07/18/18 04/14/19 Levothyroxine [Synthroid] 88 mcg PO QDAC 12/22/18 04/14/19 - Allergies Allergies/Adverse Reactions: Allergies Allergy/AdvReac Type Severity Reaction Status Date / Time latex Allergy Itching Verified 05/10/19 21:37 morphine Allergy Respiratory Verified 05/10/19 21:37 - Social History Does the pt smoke?: No Smoking Status: Never smoker Does the pt drink ETOH?: Yes Does the pt have substance abuse?: Yes - Immunizations Immunizations are current?: Yes - POLST Patient has POLST: No PD ED PE NORMAL - Vitals Vital signs reviewed: Yes - General General: Alert and oriented X 3, No acute distress, Other (Obese 34-year-old woman) - HEENT HEENT: Atraumatic, PERRL, EOMI (There is left lateral nystagmus), Ears normal, Moist mucous membranes, Pharynx benign, Other (No palpable deformity along the forehead mandaeism region or jaw. No bogginess to the frontal sinus region or the mastoid.) - Neck Neck: Supple, no meningeal sign, No JVD - Cardiac Cardiac: RRR, No murmur - Respiratory Respiratory: No respiratory distress, Clear bilaterally - Abdomen Abdomen: Normal bowel sounds, Soft - Derm Derm: Normal color, No rash - Extremities Extremities: No deformity - Neuro Neuro: Alert and oriented X 3, biomedical scientist 2-12 intact, No motor deficit, No sensory deficit, Normal speech, Other (Reflexes are symmetrical at the quadriceps.) - Psych Psych: Normal mood, Normal affect Results - Vitals Vitals: Vital Signs - 24 hr 05/10/19 05/10/19 21:35 23:06 Temperature 36.7 C Heart Rate 109 H 83 Respiratory 18 15 Rate Blood Pressure 134/93 H 120/79 O2 Saturation 99 98 Oxygen O2 Source Room air - Labs Labs: Laboratory Tests 05/10/19 05/10/19 05/10/19 23:02 23:02 23:02 WBC 12.6 H RBC 4.12 L Hgb 11.8 L Hct 36.4 L MCV 88.3 MCH 28.6 MCHC 32.4 RDW 12.8 Plt Count 344 MPV 9.1 Neut # (Auto) 7.8 H Lymph # (Auto) 3.8 H Mower # (Auto) 0.8 Eos # (Auto) 0.1 Baso # (Auto) 0.1 Absolute Nucleated RBC 0.00 Nucleated RBC % 0.0 ESR 46 H Sodium 139 Potassium 3.6 Chloride 102 Carbon Dioxide 26 Anion Gap 11.0 BUN 14 Creatinine 0.8 Estimated GFR (MDRD) 83 L Glucose 100 Calcium 8.9 Urine Color Urine Clarity Urine pH Ur Specific [place] Urine Protein Urine Glucose (UA) Urine Ketones Urine Occult Blood Urine Nitrite Urine Bilirubin Urine Urobilinogen Ur Leukocyte Esterase Ur Microscopic Review Urine Culture Comments Urine HCG, Qual 05/10/19 23:10 WBC RBC Hgb Hct MCV MCH MCHC RDW Plt Count MPV Neut # (Auto) Lymph # (Auto) Mower # (Auto) Eos # (Auto) Baso # (Auto) Absolute Nucleated RBC Nucleated RBC % ESR Sodium Potassium Chloride Carbon Dioxide Anion Gap BUN Creatinine Estimated GFR (MDRD) Glucose Calcium Urine Color YELLOW Urine Clarity CLEAR Urine pH 7.0 Ur Specific [place] 1.015 Urine Protein NEGATIVE Urine Glucose (UA) NEGATIVE Urine Ketones NEGATIVE Urine Occult Blood NEGATIVE Urine Nitrite NEGATIVE Urine Bilirubin NEGATIVE Urine Urobilinogen 0.2 (NORMAL) Ur Leukocyte Esterase NEGATIVE Ur Microscopic Review NOT INDICATED Urine Culture Comments NOT INDICATED Urine HCG, Qual NEGATIVE PD MEDICAL DECISION MAKING - ED course Complexity details: reviewed results, d/w patient ED course: The patient's white blood cell count is mildly elevated at 12.4 and sed rates elevated at 42. She really does not fit the age group for temporal arteritis. Her CT was negative for any intracranial abnormality and the sinuses are clear. Results were discussed with her. She is only had 3 episodes of this more severe pain. We discussed using anti-inflammatories which she is been hesitant to do because of her stomach and taking the omeprazole. She is on a trial a dose of it but declined a shot here. If her stomach flares up she will stop using it. I have encouraged her to follow-up with her primary care provider for MRI scanning if her symptoms persist. She states understanding. Departure - Departure Disposition: 01 Home, Self Care Clinical Impression: Head ache Qualifiers: Headache type: other headache syndrome Qualified Code(s): G44.89 - Other headache syndrome Condition: Good Instructions: ED Cephalgia Unspecified Follow-Up: Jj Paiz PA-C [Primary Care Provider] - Comments: Trial of ibuprofen to see if that would be more effective at treating the headache. If it upsets her stomach stop taking it. If the headache persists I think MRI scanning would be warranted. This would need to be done through your primary care provider. Consider referral to neurology if headaches persist.
[2019-05-10 23:06] LABS: BASOPHILS # (AUTO) 0.1 10^3/uL (0.0-0.1); BASOPHILS % (AUTO) 0.4 %; EOSINOPHILS # (AUTO) 0.1 10^3/uL (0.0-0.7); EOSINOPHILS % (AUTO) 0.5 %; HGB - HEMOGLOBIN 11.8 g/dL (12.0-16.0); LYMPHOCYTES # (AUTO) 3.8 10^3/uL (1.5-3.5); LYMPHOCYTES % (AUTO) 30.3 %; MEAN CORPUSCULAR HEMOGLOBIN 28.6 pg (27.0-31.0); MEAN CORPUSCULAR HGB CONC 32.4 g/dL (32.0-36.0); MEAN CORPUSCULAR VOLUME 88.3 fL (81.0-99.0); MEAN PLATELET VOLUME 9.1 fL (7.9-10.8); MONOCYTES # (AUTO) 0.8 10^3/uL (0.0-1.0); MONOCYTES % (AUTO) 6.6 %; NEUTROPHILS # (AUTO) 7.8 10^3/uL (1.5-6.6); NEUTROPHILS % (AUTO) 61.8 %; PLT - PLATELET COUNT 344 10^3/uL (130-450); RED BLOOD COUNT 4.12 10^6/uL (4.20-5.40); RED CELL DISTRIBUTION WIDTH 12.8 % (12.0-15.0); WHITE BLOOD COUNT 12.6 x10^3/uL (4.8-10.8)
[2019-05-10 23:15] LABS: CALCIUM 8.9 mg/dL (8.5-10.3); CREATININE 0.8 mg/dL (0.4-1.0)
[2019-05-10 23:18] LABS: BILIRUBIN,URINE NEGATIVE (NEGATIVE); GLUCOSE, URINE (UA) NEGATIVE (NEGATIVE); KETONES,URINE (UA) NEGATIVE (NEGATIVE); LEUKOCYTE ESTERASE, URINE NEGATIVE (NEGATIVE); NITRITE,URINE NEGATIVE (NEGATIVE); OCCULT BLOOD,URINE NEGATIVE (NEGATIVE); PROTEIN,URINE NEGATIVE (NEGATIVE); UROBILINOGEN,URINE 0.2 (NORMAL) E.U./dL (NORMAL)
[2019-05-10 23:21] LABS: CLARITY,URINE CLEAR (CLEAR); HCG UR QUAL NEGATIVE
--- NOTE | 2019-05-11 00:01 | CT Report ---
Reason: headache Procedure Date: 05/10/2019 Accession Number: [id number] / [id number] Procedure: CT - HEAD WO CPT Code: FULL RESULT: EXAM: CT HEAD EXAM DATE: 05/10/2019 11:37 PM. CLINICAL HISTORY: Headache. COMPARISON: HEAD W/O 12/28/2018 7:48 PM BRAIN W/O 12/31/2018 2:49 PM. TECHNIQUE: Multiaxial CT images were obtained from the foramen magnum to the vertex. Reformats: Sagittal and coronal. IV contrast: None. In accordance with CT protocol optimization, one or more of the following dose reduction techniques were utilized for this exam: automated exposure control, adjustment of mA and/or KV based on patient size, or use of iterative reconstructive technique. FINDINGS: Parenchyma: No intraparenchymal hemorrhage. No evidence of mass, midline shift, or CT findings of infarction. Lorenzo-white differentiation is distinct. Extraaxial Spaces: Normal for age. No subdural or epidural collections identified. Ventricles: Normal in size and position. Sinuses and Orbits: Imaged paranasal sinuses, orbits, and mastoids show no significant abnormality. Bones: No evidence of fracture or calvarial defect. Other: None. IMPRESSION: No acute or focal intracranial abnormality. RADIA
[2019-05-11 00:45] VITALS: BP 136/88
== END 2019-05-11 00:44 | disposition home or self-care (01) ==
LOC: ED 21:31
DX: G44.89 Other headache syndrome (principal)
CPT/HCPCS: 36415; 70450; 80048; 81001; 81003; 81025; 85025; 85651; 87086; 99284

== ENCOUNTER 2019-06-07 13:59 | Outpatient (CLI) | payer MEDICAID ==
--- NOTE | 2019-06-08 11:37 | Ultrasound Report ---
Reason: DYSMENORRHEA Procedure Date: 06/07/2019 Accession Number: [id number] / [id number] Procedure: US - Pelvic w/Transvaginal CPT Code: FULL RESULT: EXAM: PELVIC ULTRASOUND EXAM DATE: 06/07/2019 05:23 PM. CLINICAL HISTORY: Dysmenorrhea. COMPARISON: None. TECHNIQUE: Realtime transabdominal pelvic scan performed to identify the uterus and adnexa and as an overview of other pelvic structures, followed by transvaginal scan to provide greater detail of the uterus and adnexa, with static image documentation. FINDINGS: Uterus: 7.3 x 4.0 x 4.6 cm, volume 70.2 cc. Anteverted position. Normal overall size and echotexture. Masses: None. Endometrium: 11 mm. Small-volume complex fluid is noted in the endometrial canal. Endometrium is thickened measuring up to 11 mm. Mild vascularity is noted and a thickened endometrium but no definite focal echogenic mass lesion or vascular stalk. Cervix: Multiple nabothian cysts are noted. No mass is identified. This includes a 0.5 cm posterior nabothian cyst containing internal debris. No internal vascularity is noted. Right Ovary: 2.9 x 1.9 x 3.2 cm, volume 9.0 cc. Normal echotexture and blood flow. Left Ovary: 2.0 x 1.6 x 2.7 cm, volume 4.5 cc. Normal echotexture and blood flow. Free Fluid: None. Other: Study limited by body habitus. IMPRESSION: 1. Heterogeneous, mildly thickened endometrium. No definite focal thickening, focal mass/nodule or vascular stalk. Findings may represent hyperplasia. If symptoms persist, patient may benefit from sonohysterogram and/or biopsy. 2. No uterine mass. 3. Both ovaries and adnexa are grossly unremarkable. No enlarged uterine volume to suggest polycystic ovarian syndrome. Normal amounts of bilateral ovarian follicles. RADIA
== END 2019-06-07 14:00 | disposition home or self-care (01) ==
LOC: DI 13:59
PROVIDERS: ATTEND Obstetrics & Gynecology
DX: N94.6 Dysmenorrhea, unspecified (principal); R93.89 Abnormal findings on diagnostic imaging of other specified body structures
CPT/HCPCS: 76830; 76856

== ENCOUNTER 2019-06-21 15:31 | Emergency (ER) | payer MEDICAID ==
[2019-06-21 16:22] LABS: BASOPHILS % (AUTO) 0.4 %; EOSINOPHILS % (AUTO) 0.1 %; LYMPHOCYTES # (AUTO) 2.1 10^3/uL (1.5-3.5); LYMPHOCYTES % (AUTO) 24.3 %; MEAN CORPUSCULAR HEMOGLOBIN 28.3 pg (27.0-31.0); MEAN CORPUSCULAR HGB CONC 32.3 g/dL (32.0-36.0); MEAN CORPUSCULAR VOLUME 87.4 fL (81.0-99.0); MEAN PLATELET VOLUME 10.1 fL (7.9-10.8); MONOCYTES # (AUTO) 0.5 10^3/uL (0.0-1.0); MONOCYTES % (AUTO) 5.9 %; NEUTROPHILS # (AUTO) 5.9 10^3/uL (1.5-6.6); NEUTROPHILS % (AUTO) 69.1 %; PLT - PLATELET COUNT 335 10^3/uL (130-450); RED CELL DISTRIBUTION WIDTH 13.1 % (12.0-15.0); WHITE BLOOD COUNT 8.5 x10^3/uL (4.8-10.8)
[2019-06-21 16:36] LABS: ALBUMIN 4.1 g/dL (3.2-5.5); ALBUMIN/GLOBULIN RATIO 1.1 (1.0-2.2); BILIRUBIN,TOTAL 0.3 mg/dL (0.2-1.0); CALCIUM 9.4 mg/dL (8.5-10.3); CREATININE 0.7 mg/dL (0.4-1.0); TOTAL PROTEIN 7.8 g/dL (6.7-8.2)
--- NOTE | 2019-06-21 18:34 | ED Physician Documentation ---
History of Present Illness - Stated complaint Stated Complaint: NEAR SYNCOPE/SOA - Chief complaint Chief Complaint: General - Additonal information Additional information: This is a 34-year-old female with a history of PCOS and Norma's thyroiditis, on levothyroxine, who presents with lightheadedness and general malaise. This afternoon patient was shopping and she began feeling some lightheadedness as well as headache. The headache was gradual onset but became more severe, butthen nearly resolved after taking 2 Tylenol. She continued to feel a little bit out of it, patient states she feels like she has a hangover although she do es not drink. She denies any numbness or weakness, she did still does feel slightly lightheaded at times, but she has not passed out. She does not feel dehydrated. She is been eating normally denies nausea or vomiting. She has been on the keto diet for the last 3 weeks. 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 : None HEENT: None Psych: None Musculoskeletal: Other Derm: None - Past Surgical History Past Surgical History: Yes Ortho: Other - Present Medications Home Medications: Ambulatory Orders Medication Instructions Recorded Confirmed Omeprazole [PriLOSEC] 20 mg PO DAILY 07/18/18 04/14/19 Levothyroxine [Synthroid] 88 mcg PO QDAC 12/22/18 04/14/19 - Allergies Allergies/Adverse Reactions: Allergies Allergy/AdvReac Type Severity Reaction Status Date / Time latex Allergy Itching Verified 05/10/19 21:37 morphine Allergy Respiratory Verified 05/10/19 21:37 - Social History Does the pt smoke?: No Smoking Status: Never smoker Does the pt drink ETOH?: Yes Does the pt have substance abuse?: Yes - Immunizations Immunizations are current?: Yes - POLST Patient has POLST: No PD ED PE NORMAL - Vitals Vital signs reviewed: Yes - General General: Alert and oriented X 3, No acute distress - HEENT HEENT: PERRL - Neck Neck: Supple, no meningeal sign - Cardiac Cardiac: RRR, No murmur - Respiratory Respiratory: Clear bilaterally - Abdomen Abdomen: Soft, Non tender, Non distended - Derm Derm: Warm and dry - Extremities Extremities: No deformity - Neuro Neuro: Alert and oriented X 3, wood caulker 2-12 intact, No motor deficit, No sensory deficit, Normal speech - Psych Psych: Normal mood, Normal affect Results - Vitals Vitals: Vital Signs - 24 hr 06/21/19 06/21/19 06/21/19 15:50 18:39 20:26 Temperature 36.6 C 37.2 C Heart Rate 69 76 92 Respiratory 16 14 15 Rate Blood Pressure 137/79 H 137/96 H 148/97 H O2 Saturation 99 98 99 06/21/19 06/21/19 06/21/19 21:27 22:04 22:05 Temperature Heart Rate 65 81 86 Respiratory 18 18 18 Rate Blood Pressure 123/85 H 158/91 H 158/91 H O2 Saturation 97 99 98 Oxygen O2 Source Room air - EKG (time done) 16:23 Other comments: Other comments (Rate 82, rhythm sinus, there is no ST segment elevation or depression, no abnormal T wave inversions. Intervals within normal limits.) - Labs Labs: Laboratory Tests 06/21/19 06/21/19 06/21/19 15:54 16:17 16:17 WBC 8.5 RBC 4.60 Hgb 13.0 Hct 40.2 MCV 87.4 MCH 28.3 MCHC 32.3 RDW 13.1 Plt Count 335 MPV 10.1 Neut # (Auto) 5.9 Lymph # (Auto) 2.1 Elk # (Auto) 0.5 Eos # (Auto) 0.0 Baso # (Auto) 0.0 Absolute Nucleated RBC 0.00 Nucleated RBC % 0.0 Sodium 138 Potassium 4.0 Chloride 102 Carbon Dioxide 25 Anion Gap 11.0 BUN 15 Creatinine 0.7 Estimated GFR (MDRD) 96 Glucose 101 H POC Whole Bld Glucose 98 Calcium 9.4 Total Bilirubin 0.3 AST 15 ALT 18 Alkaline Phosphatase 56 Total Protein 7.8 Albumin 4.1 Globulin 3.7 Albumin/Globulin Ratio 1.1 Lipase 26 TSH Free T4 Serum HCG, Qual 06/21/19 06/21/19 16:17 16:17 WBC RBC Hgb Hct MCV MCH MCHC RDW Plt Count MPV Neut # (Auto) Lymph # (Auto) Elk # (Auto) Eos # (Auto) Baso # (Auto) Absolute Nucleated RBC Nucleated RBC % Sodium Potassium Chloride Carbon Dioxide Anion Gap BUN Creatinine Estimated GFR (MDRD) Glucose POC Whole Bld Glucose Calcium Total Bilirubin AST ALT Alkaline Phosphatase Total Protein Albumin Globulin Albumin/Globulin Ratio Lipase TSH 4.64 Free T4 0.92 Serum HCG, Qual NEGATIVE PD MEDICAL DECISION MAKING - ED course Complexity details: considered differential (Viral syndrome, electrolyte abnormality, dysrhythmia, ACS, migraine, tension headache, intracranial hemorrhage) ED course: On exam patient is nontoxic-appearing, vital signs are unremarkable. EKG shows no signs of ischemia or dysrhythmia. She has no chest pain, and she is low risk for coronary artery disease. CBC, CMP, and hCG are all unremarkable. Patient did have a headache earlier, although this Has nearly resolved with Tylenol, she has no signs of meningitis. History and exam are inconsistent with a subarachnoid hemorrhage. She also typically gets headaches similar to this one. Patient was observed in the emergency department for several hours, on reevaluation she is feeling improved. She is starting to have slight nasal congestion and thinks that she may be starting to get a viral syndrome, which would explain her symptoms. She has normal blood pressure, is able to ambulate without issue, and would like to go home. I discussed that we do not see an obvious cause of her symptoms, but that her labs and vital signs and exam are reassuring at this time. I recommended that she follow-up with her primary care provider and she return to emergency department with any concerning symptoms. Patient agrees and was discharged home. Departure - Departure Disposition: 01 Home, Self Care Clinical Impression: Dizziness Condition: Good Instructions: ED Dizziness [facility]O Follow-Up: Jj Paiz PA-C [Primary Care Provider] - Comments: You were seen today for lightheadedness and malaise. Your labs are reassuring and the cause of your symptoms is unclear. If you have new or worsening symptoms such as chest pain, shortness of breath, or passing out please return to the ED. Please follow up with your primary care provider as soon as possible. Discharge Date/Time: 06/21/19 22:05
[2019-06-21 19:16] LABS: HCG,QUALITATIVE BLOOD NEGATIVE; THYROID STIMULATING HORMONE 4.64 uIU/mL (0.34-5.60)
[2019-06-21 19:20] LABS: FREE T4 (FREE THYROXINE) 0.92 ng/dL (0.58-1.64)
[2019-06-21 22:05] VITALS: BP 158/91
== END 2019-06-21 22:05 | disposition home or self-care (01) ==
LOC: ED 15:31
DX: R42 Dizziness and giddiness (principal); R51 Headache; R09.81 Nasal congestion; R53.81 Other malaise; E06.3 Autoimmune thyroiditis; E28.2 Polycystic ovarian syndrome
CPT/HCPCS: 36415; 80053; 83690; 84439; 84443; 84703; 85025; 93005; 99281; 99284

== ENCOUNTER 2019-06-27 15:11 | Outpatient (CLI) | payer MEDICAID ==
[2019-06-27 15:31] LABS: BASOPHILS # (AUTO) 0.1 10^3/uL (0.0-0.1); BASOPHILS % (AUTO) 0.6 %; EOSINOPHILS # (AUTO) 0.1 10^3/uL (0.0-0.7); EOSINOPHILS % (AUTO) 0.7 %; HGB - HEMOGLOBIN 13.3 g/dL (12.0-16.0); LYMPHOCYTES # (AUTO) 3.1 10^3/uL (1.5-3.5); LYMPHOCYTES % (AUTO) 35.7 %; MEAN CORPUSCULAR HGB CONC 33.3 g/dL (32.0-36.0); MEAN CORPUSCULAR VOLUME 86.9 fL (81.0-99.0); MONOCYTES # (AUTO) 0.7 10^3/uL (0.0-1.0); MONOCYTES % (AUTO) 8.2 %; NEUTROPHILS # (AUTO) 4.7 10^3/uL (1.5-6.6); NEUTROPHILS % (AUTO) 54.5 %; PLT - PLATELET COUNT 365 10^3/uL (130-450); RED BLOOD COUNT 4.59 10^6/uL (4.20-5.40); WHITE BLOOD COUNT 8.7 x10^3/uL (4.8-10.8)
[2019-06-27 15:40] LABS: GLUCOSE, URINE (UA) NEGATIVE (NEGATIVE); KETONES,URINE (UA) 40 mg/dL (NEGATIVE); LEUKOCYTE ESTERASE, URINE NEGATIVE (NEGATIVE); NITRITE,URINE NEGATIVE (NEGATIVE); OCCULT BLOOD,URINE NEGATIVE (NEGATIVE); PH,URINE 5.5 PH (5.0-7.5); PROTEIN,URINE NEGATIVE (NEGATIVE); UROBILINOGEN,URINE 0.2 (NORMAL) E.U./dL (NORMAL)
[2019-06-27 15:42] LABS: CALCIUM 9.2 mg/dL (8.5-10.3); CREATININE 0.8 mg/dL (0.4-1.0)
[2019-06-27 15:45] LABS: BILIRUBIN,URINE NEGATIVE (NEGATIVE); CLARITY,URINE CLEAR (CLEAR); ICTOTEST,URINE NEGATIVE
== END 2019-06-27 15:12 | disposition home or self-care (01) ==
LOC: LAB 15:11
PROVIDERS: ATTEND Obstetrics & Gynecology
DX: Z01.812 Encounter for preprocedural laboratory examination (principal); R93.89 Abnormal findings on diagnostic imaging of other specified body structures
CPT/HCPCS: 36415; 80048; 81001; 81003; 85025; 86850; 86900; 86901

== ENCOUNTER 2019-06-28 08:08 | Day surgery (SDC) | payer MEDICAID ==
[2019-06-28] MEDS ORDERED: fentaNYL 100 MCG/2 ML VIAL IVP ONE (08:09)
[2019-06-28] MEDS ORDERED: NEOSTIGMINE 0.5 MG/1 ML 10 ML MDV IVP ONE (08:09)
[2019-06-28] MEDS ORDERED: ROCURONIUM 50 MG/5 ML VIAL IVP ONE (08:09)
[2019-06-28] MEDS ORDERED: ONDANSETRON 4 MG/2 ML VIAL IVP ONE (08:09)
[2019-06-28] MEDS ORDERED: DEXAMETHASONE 4 MG/ML VIAL IVP ONE (08:09)
[2019-06-28] MEDS ORDERED: LIDOCAINE-MPF 2% 5 ML VIAL IM ONE (08:09)
[2019-06-28] MEDS ORDERED: MIDAZOLAM 2 MG/2 ML VIAL IVP ONE (08:09)
[2019-06-28] MEDS ORDERED: GLYCOPYRROLATE 1 MG/5 ML VIAL IVP ONE (08:09)
[2019-06-28] MEDS ORDERED: PROPOFOL 200 MG/20 ML VIAL IVP ONE (08:09)
[2019-06-28] MEDS ORDERED: CEFAZOLIN SODIUM IN 0.9 % NACL 2 GM/100 ML BAG IV ONE (08:10)
[2019-06-28] MEDS ORDERED: LACTATED RINGERS 1,000 ML IV ONE (08:12)
[2019-06-28 08:40] LABS: HCG UR QUAL NEGATIVE
--- NOTE | 2019-06-28 09:38 | ANESTHESIA ---
Pre-Anesthesia VS, & Labs - Diagnosis thickened endometrium - Procedure myosure hysteroscopy Height 5 ft 2 in Weight (kg) 138.9 kg Body Mass Index 56.2 - NPO >8 hours - Is Patient ?: No Home Medications and Allergies Home Medications: Ambulatory Orders Albuterol 1 puffs IH DAILY PRN 06/27/19 Omeprazole [PriLOSEC] 40 mg PO DAILY 07/18/18 Levothyroxine [Synthroid] 112 mcg PO QDAC 12/22/18 Albuterol 1 puffs IH DAILY PRN 06/27/19 Allergies/Adverse Reactions: Allergies Allergy/AdvReac Type Severity Reaction Status Date / Time latex Allergy Itching Verified 05/10/19 21:37 morphine Allergy Respiratory Verified 05/10/19 21:37 Anes History & Medical History - Anesthetic History Anesthesia Complications: reports: No previous complications - Medical History Cardiovascular: reports: None Pulmonary: reports: None Gastrointestinal: reports: None Urinary: reports: None Neuro: reports: None Musculoskeletal: reports: None Endocrine/Autoimmune: reports: HyPOthyroidism, Other (morbid obesity) Blood Disorders: reports: None Skin: reports: None Smoking Status: Never smoker - Surgical History Orthopedic: Other (ankle at 19yrs, [place]) Exam General: Alert Dental: WNL Mouth Opening: Greater than 4 Fingerbreadths Neck Mobility: Normal Mallampati classification: II Thyromental Distance: greater than 6 cm Respiratory: Lungs clear Cardiovascular: Regular rate, Normal S1, Normal S2 Mental/Cognitive Status: Alert/Oriented X3 Plan Anesthesia Type: General Consent for Procedure(s) Verified and Reviewed: Yes Code Status: Attempt Resuscitation ASA classification: 3-Severe systemic disease Is this case an emergency?: No
[2019-06-28] MEDS ORDERED: BUPIVACAINE 0.25%-EPI 1:200000 PF 30 ML VIAL ONE (11:26)
[2019-06-28] MEDS ORDERED: BUPIVACAINE 0.25%-EPI 1:200000 PF 30 ML VIAL SUBQ ONE (12:07)
--- NOTE | 2019-06-28 12:27 | OPERATIVE REPORT ---
Operative Report - General Procedure Date: 06/28/19 Planned Procedure: Hysterscopy with D&C Pre-Op Diagnosis: PCOS, thickened endometruim Procedure Performed: Hysterscopy with D&C Post Op Diagnosis: PCOS, thickened endometruim - Procedure Note Primary Surgeon: Vitaly Panda MD Anesthesia Provider: Jairon Perez CRNA Anesthesia Technique: General ET tube Pathology: Endometrial curettings IV Fluids (mL): 800 Estimated Blood Loss (mL): 50 Urine Output (mL): 30 Indications: PCOS thickened endomertiun on US Findings: Uterus sounded to 8.5 cm Complications: None - Other Other Information/Narrative: [id number]
[2019-06-28] MEDS ORDERED: ONDANSETRON 4 MG/2 ML VIAL IVP PRN (12:33)
[2019-06-28] MEDS ORDERED: HYDROmorphone 0.5 MG/0.5 ML SYRINGE IVP PRN (12:33)
[2019-06-28] MEDS ORDERED: oxyCODONE 5 MG TABLET PO PRN (12:33)
[2019-06-28] MEDS ORDERED: LORazepam 2 MG/ML VIAL IVP PRN (12:33)
[2019-06-28] MEDS ORDERED: LORazepam 2 MG/ML VIAL ONE (12:43)
[2019-06-28] MEDS ORDERED: oxyCODONE 5 MG TABLET ONE (13:44)
[2019-06-28 14:00] VITALS: BP 130/76
--- NOTE | 2019-06-28 16:38 | PROCEDURE REPORT ---
DATE OF SERVICE: 06/28/2019 Physician: Vitaly Panda MD PREOPERATIVE DIAGNOSES 1. Polycystic ovary disease. 2. Anovulation. 3. Thickened endometrium on ultrasound. POSTOPERATIVE DIAGNOSES 1. Polycystic ovary disease. 2. Anovulation. 3. Thickened endometrium on ultrasound. PROCEDURE PERFORMED: Hysteroscopy with D and C. SURGEON: Vitaly Panda MD ANESTHESIA: General via endotracheal tube with Jairon Perez CRNA. FINDINGS: The pelvic examination under anesthesia was unrewarding secondary to abdominal wall thickness. The cervix was visualized and noted to be normal. The endometrial cavity sounded to 8.5 cm. The cornua were both visualized. There was evidence of thickened endometrium, but no evidence of polyps or submucosal fibroids. PROCEDURE IN DETAIL: Following adequate general endotracheal anesthesia, the patient was placed in dorsal lithotomy position in [facility]. At this point, a pelvic examination was performed and the uterus was nonpalpable secondary to abdominal wall thickness. She was then prepped and draped in the usual fashion. A timeout was performed, in which all issues and concerns were addressed. A speculum was then placed in the vagina. The cervix was visualized, grasped with a single-tooth tenaculum. Utilizing dilators, the cervix was dilated all the way up to 6 mm. The uterus was sounded to 8.5 cm and then the video hysteroscope was placed, both cornua were visualized and noted to be normal. The endometrium appeared to be somewhat thickened; however, there is no evidence of any polyps or fibroids. The endometrial cavity was then sampled in all 4 quadrants utilizing the MyoSure LITE. Care was taken to visualize the biopsy forceps at all times during the procedure. At this point, the cervix was released from the tenaculum. The hysteroscope was removed. The tissue specimens were sent. The tenaculum was then removed. The patient tolerated the procedure well and was taken to recovery in stable condition. Sponge and needle counts were correct. TD: 06/28/2019 12:34 MTDD
== END 2019-06-28 08:09 | disposition home or self-care (01) ==
LOC: SDS 08:08
PROVIDERS: ATTEND Obstetrics & Gynecology
PROC: 0UDB8ZX Extraction of Endometrium, Via Natural or Artificial Opening Endoscopic, Diagnostic (ICD-10-PCS; principal; 2019-06-28 09:30)
DX: E28.2 Polycystic ovarian syndrome (principal); R93.89 Abnormal findings on diagnostic imaging of other specified body structures; E66.9 Obesity, unspecified; Z68.43 Body mass index [BMI] 50.0-59.9, adult; Z87.891 Personal history of nicotine dependence
CPT/HCPCS: 58558; 81025; A9270; J0690; J2060; J7120; 81001; 87086

== ENCOUNTER 2019-07-06 04:34 | Outpatient (CLI) | payer MEDICAID ==
[2019-07-06 17:53] LABS: GLUCOSE, URINE (UA) NEGATIVE (NEGATIVE); KETONES,URINE (UA) 40 mg/dL (NEGATIVE); LEUKOCYTE ESTERASE, URINE NEGATIVE (NEGATIVE); NITRITE,URINE NEGATIVE (NEGATIVE); OCCULT BLOOD,URINE NEGATIVE (NEGATIVE); PROTEIN,URINE NEGATIVE (NEGATIVE); UROBILINOGEN,URINE 0.2 (NORMAL) E.U./dL (NORMAL)
[2019-07-06 18:14] LABS: BACTERIA,URINE None Seen /HPF (None Seen); BILIRUBIN,URINE NEGATIVE (NEGATIVE); CLARITY,URINE CLEAR (CLEAR); ICTOTEST,URINE NEGATIVE; MUCUS,URINE Moderate Strands; RBC,URINE None Seen /HPF (0-5); SQUAMOUS EPITHELIAL CELL,UR MOD Squamous (<= Few)
== END 2019-07-06 23:59 | disposition home or self-care (01) ==
LOC: LAB.R 04:34
PROVIDERS: ATTEND Obstetrics & Gynecology
DX: R82.90 Unspecified abnormal findings in urine (principal)
CPT/HCPCS: 81001; 87086

== ENCOUNTER 2019-07-21 08:00 | Outpatient (CLI) | payer MEDICAID ==
[2019-07-21 22:53] LABS: TRICHOMONAS VAGINALIS DNA NEGATIVE (NEGATIVE)
== END 2019-07-21 23:59 | disposition home or self-care (01) ==
LOC: LAB.R 08:00
PROVIDERS: ATTEND Obstetrics & Gynecology
DX: N94.6 Dysmenorrhea, unspecified (principal)
CPT/HCPCS: 87491; 87591; 87661

== ENCOUNTER 2019-12-15 10:18 | Outpatient (CLI) | payer MEDICAID ==
[2019-12-15 12:16] LABS: BASOPHILS % (AUTO) 0.6 %; EOSINOPHILS % (AUTO) 0.6 %; LYMPHOCYTES # (AUTO) 2.2 10^3/uL (1.5-3.5); LYMPHOCYTES % (AUTO) 32.5 %; MEAN CORPUSCULAR HEMOGLOBIN 28.9 pg (27.0-31.0); MEAN CORPUSCULAR VOLUME 90.3 fL (81.0-99.0); MEAN PLATELET VOLUME 10.3 fL (7.9-10.8); MONOCYTES # (AUTO) 0.5 10^3/uL (0.0-1.0); MONOCYTES % (AUTO) 7.3 %; NEUTROPHILS # (AUTO) 3.9 10^3/uL (1.5-6.6); NEUTROPHILS % (AUTO) 58.7 %; PLT - PLATELET COUNT 334 10^3/uL (130-450); RED BLOOD COUNT 4.85 10^6/uL (4.20-5.40); RED CELL DISTRIBUTION WIDTH 12.6 % (12.0-15.0); WHITE BLOOD COUNT 6.6 x10^3/uL (4.8-10.8)
[2019-12-15 12:31] LABS: ALBUMIN/GLOBULIN RATIO 1.3 (1.0-2.2); BILIRUBIN,TOTAL 0.4 mg/dL (0.2-1.0); CALCIUM 9.3 mg/dL (8.5-10.3); CREATININE 0.7 mg/dL (0.4-1.0); TOTAL PROTEIN 7.2 g/dL (6.7-8.2)
== END 2019-12-15 23:59 | disposition home or self-care (01) ==
LOC: LAB.N 10:18
PROVIDERS: ATTEND Nurse Practitioner Gerontology
DX: E06.3 Autoimmune thyroiditis (principal); E28.2 Polycystic ovarian syndrome; L65.9 Nonscarring hair loss, unspecified
CPT/HCPCS: 36415; 80053; 84443; 85025

== ENCOUNTER 2019-12-22 09:48 | Outpatient (CLI) | payer MEDICAID ==
--- NOTE | 2019-12-23 22:54 | Ultrasound Report ---
Reason: PELVIC PAIN Procedure Date: 12/22/2019 Accession Number: [id number] / [id number] Procedure: US - Pelvic w/Transvaginal CPT Code: Final Report FULL RESULT: EXAM: PELVIC ULTRASOUND EXAM DATE: 12/22/2019 11:20 AM. CLINICAL HISTORY: PELVIC PAIN. COMPARISON: PELVIC W/TRANSVAGINAL 06/07/2019 2:49 PM. TECHNIQUE: Realtime transabdominal pelvic scan performed to identify the uterus and adnexa and as an overview of other pelvic structures, followed by transvaginal scan to provide greater detail of the uterus and adnexa, with static image documentation. FINDINGS: Uterus: 7.4 x 3.3 x 4.2 cm, volume 53.5 cc. Anteverted position. Normal overall size and echotexture. Masses: None. Endometrium: 4 mm. IUD in appropriate position within the endometrium. Cervix: Nabothian cysts are present. Right Ovary: 2.8 x 1.9 x 1.5 cm, volume 4.1 cc. Normal echotexture and blood flow. 1.2 cm highly likely benign cyst with a thin septation. Left Ovary: 3.1 x 1.5 x 1.9 cm, volume 4.6 cc. Normal echotexture and blood flow. Free Fluid: None. Other: None. IMPRESSION: No acute sonographic abnormalities. RADIA
== END 2019-12-22 09:49 | disposition home or self-care (01) ==
LOC: DI 09:48
PROVIDERS: ATTEND Obstetrics & Gynecology
DX: R10.2 Pelvic and perineal pain (principal)
CPT/HCPCS: 76830; 76856

== ENCOUNTER 2020-01-21 21:49 | Emergency (ER) | payer MEDICAID ==
[2020-01-21 21:57] VITALS: BP 143/104
--- NOTE | 2020-01-21 23:05 | ED Physician Documentation ---
History of Present Illness - Stated complaint Stated Complaint: ANXIETY - DIZZY / SOB - Chief complaint Chief Complaint: Neuro - History obtained from History obtained from: Patient (Patient is a 34-year-old female presents with a chief complaint of vertigo. Patient reports recently she was diagnosed with a sinus infection started on azithromycin today she feels like when she is walking she feels like the room was spinning she reports that she First noticed her symptoms this morning when she woke out of bed and fell like the room was spinning denies any unilateral weakness or facial paralysis or facial droop or slurred speech or visual or hearing loss.Denies any chest pain or shortness of breath or fevers chills or night sweats denies any headache, neck pain, rashes. She did not try any treatment prior to arrival.She denies any history of hypercoagulability.) Review of Systems Constitutional: reports: Reviewed and negative Eyes: reports: Reviewed and negative Ears: reports: Reviewed and negative Nose: reports: Reviewed and negative Throat: reports: Reviewed and negative Cardiac: reports: Reviewed and negative Respiratory: reports: Reviewed and negative GI: reports: Reviewed and negative : reports: Reviewed and negative Skin: reports: Reviewed and negative Musculoskeletal: reports: Reviewed and negative Neurologic: reports: Other (Dizziness) Psychiatric: reports: Reviewed and negative Endocrine: reports: Reviewed and negative Immunocompromised: reports: Reviewed and negative PD PAST MEDICAL HISTORY - Past Medical History Past Medical History: Yes Cardiovascular: None Respiratory: None Neuro: None Endocrine/Autoimmune: HyPOthyroidism, Other GI: None 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 : None HEENT: None Psych: None Musculoskeletal: Other Derm: None - Past Surgical History Past Surgical History: Yes Ortho: Other - Present Medications Home Medications: Ambulatory Orders Medication Instructions Recorded Confirmed Levothyroxine [Synthroid] 112 mcg PO QDAC 12/22/18 01/21/20 Albuterol Sulfate [Albuterol 2 puffs IH Q4HR PRN 01/21/20 01/21/20 Sulfate Hfa] Meclizine [Antivert] 25 mg PO Q6H PRN #10 tablet 01/21/20 - Allergies Allergies/Adverse Reactions: Allergies Allergy/AdvReac Type Severity Reaction Status Date / Time latex Allergy Itching Verified 01/21/20 22:19 morphine Allergy Respiratory Verified 01/21/20 22:19 - Social History Does the pt smoke?: No Smoking Status: Never smoker Does the pt drink ETOH?: Yes Does the pt have substance abuse?: Yes - Immunizations Immunizations are current?: Yes - POLST Patient has POLST: No PD ED PE NORMAL - Vitals Vital signs reviewed: Yes - General General: Alert and oriented X 3, No acute distress, Well developed/nourished - HEENT HEENT: Atraumatic, PERRL, EOMI, Ears normal, Moist mucous membranes, Pharynx benign, Dentition benign - Neck Neck: Supple, no meningeal sign, No adenopathy, No JVD - Cardiac Cardiac: RRR, No murmur, Strong equal pulses - Respiratory Respiratory: No respiratory distress, Clear bilaterally - Abdomen Abdomen: Normal bowel sounds, Soft, Non tender, Non distended, No organomegaly - Back Back: No CVA TTP, No spinal TTP - Derm Derm: Normal color, Warm and dry, No rash - Extremities Extremities: No deformity, No tenderness to palpate, Normal ROM s pain, No edema, No calf tenderness / cord - Neuro Neuro: Alert and oriented X 3, scrum product owner 2-12 intact, No motor deficit, No sensory deficit, Normal speech, Other (HINTS Exam negative. positive aysha hallpike maneuver with Fatigable horizontal nystagmus, no vertical nystagmus.) - Psych Psych: Normal mood, Normal affect Results - Vitals Vitals: Vital Signs - 24 hr 01/21/20 21:53 Temperature 36.4 C L Heart Rate 96 Respiratory 20 Rate Blood Pressure 143/104 H O2 Saturation 97 Oxygen O2 Source Room air PD MEDICAL DECISION MAKING - ED course Complexity details: considered differential (History and exam are consistent with peripheral vertigo there is no signs on history or physical exam of central causes of vertigo such as posterior stroke. ) Departure - Departure Disposition: 01 Home, Self Care Clinical Impression: BPV (benign positional vertigo) Qualifiers: Laterality: unspecified laterality Qualified Code(s): H81.10 - Benign paroxysmal vertigo, unspecified ear Condition: Stable Instructions: ED BPV Vertigo Follow-Up: Jj Paiz PA-C [Primary Care Provider] - Tomorrow Prescriptions: Meclizine [Antivert] 25 mg PO Q6H PRN #10 tablet PRN Reason: Vertigo
[2020-01-21] MEDS ORDERED: MECLIZINE 12.5 MG TABLET PO STA (23:15)
== END 2020-01-21 23:22 | disposition home or self-care (01) ==
LOC: ED 21:49
DX: H81.10 Benign paroxysmal vertigo, unspecified ear (principal)
CPT/HCPCS: 99282; 99284; A9270

== ENCOUNTER 2020-02-20 07:00 | Outpatient (CLI) | payer MEDICAID ==
[2020-02-20 17:06] LABS: BASOPHILS % (AUTO) 0.6 %; EOSINOPHILS # (AUTO) 0.1 10^3/uL (0.0-0.7); EOSINOPHILS % (AUTO) 0.7 %; HGB - HEMOGLOBIN 13.9 g/dL (12.0-16.0); LYMPHOCYTES # (AUTO) 2.9 10^3/uL (1.5-3.5); LYMPHOCYTES % (AUTO) 40.1 %; MEAN CORPUSCULAR HEMOGLOBIN 29.9 pg (27.0-31.0); MEAN CORPUSCULAR HGB CONC 32.9 g/dL (32.0-36.0); MEAN PLATELET VOLUME 9.9 fL (7.9-10.8); MONOCYTES # (AUTO) 0.4 10^3/uL (0.0-1.0); MONOCYTES % (AUTO) 5.4 %; NEUTROPHILS # (AUTO) 3.8 10^3/uL (1.5-6.6); NEUTROPHILS % (AUTO) 52.9 %; PLT - PLATELET COUNT 342 10^3/uL (130-450); RED BLOOD COUNT 4.65 10^6/uL (4.20-5.40); RED CELL DISTRIBUTION WIDTH 12.2 % (12.0-15.0); WHITE BLOOD COUNT 7.2 x10^3/uL (4.8-10.8)
[2020-02-20 17:21] LABS: ALBUMIN 3.8 g/dL (3.2-5.5); BILIRUBIN,DIRECT 0.1 mg/dL (0.1-0.5); BILIRUBIN,TOTAL 0.7 mg/dL (0.2-1.0); TOTAL PROTEIN 7.1 g/dL (6.7-8.2)
[2020-02-20 17:30] LABS: INR 1.2 (0.8-1.2); PT - PROTHROMBIN TIME 13.1 secs (9.9-12.6)
[2020-02-20 17:37] LABS: PARTIAL THROMBOPLASTIN TIME 34.6 secs (24.9-33.3)
== END 2020-02-20 23:59 | disposition home or self-care (01) ==
LOC: LAB.WCP 07:00
PROVIDERS: ATTEND Physician Assistant Medical
DX: E03.9 Hypothyroidism, unspecified (principal); R23.8 Other skin changes; R03.0 Elevated blood-pressure reading, without diagnosis of hypertension; R20.2 Paresthesia of skin
CPT/HCPCS: 36415; 80076; 84443; 85025; 85610; 85730

== ENCOUNTER 2020-07-10 07:00 | Outpatient (CLI) | payer MEDICAID ==
[2020-07-11 16:27] LABS: CANDIDA GROUP DNA NEGATIVE (NEGATIVE); CANDIDA KRUSEI DNA NEGATIVE (NEGATIVE); TRICHOMONAS VAGINALIS DNA NEGATIVE (NEGATIVE)
== END 2020-07-10 23:59 | disposition home or self-care (01) ==
LOC: LAB.R 07:00
PROVIDERS: ATTEND Nurse Practitioner Obstetrics & Gynecology
DX: N89.8 Other specified noninflammatory disorders of vagina (principal)
CPT/HCPCS: 87661; 87801

== ENCOUNTER 2020-07-22 09:38 | Outpatient (CLI) | payer MEDICAID ==
[2020-07-22 12:07] LABS: BASOPHILS % (AUTO) 0.6 %; EOSINOPHILS # (AUTO) 0.1 10^3/uL (0.0-0.7); EOSINOPHILS % (AUTO) 1.5 %; HGB - HEMOGLOBIN 14.5 g/dL (12.0-16.0); LYMPHOCYTES # (AUTO) 2.5 10^3/uL (1.5-3.5); LYMPHOCYTES % (AUTO) 37.3 %; MEAN CORPUSCULAR HEMOGLOBIN 31.3 pg (27.0-31.0); MEAN CORPUSCULAR VOLUME 92.2 fL (81.0-99.0); MEAN PLATELET VOLUME 10.1 fL (7.9-10.8); MONOCYTES # (AUTO) 0.5 10^3/uL (0.0-1.0); MONOCYTES % (AUTO) 7.7 %; NEUTROPHILS # (AUTO) 3.5 10^3/uL (1.5-6.6); NEUTROPHILS % (AUTO) 52.6 %; PLT - PLATELET COUNT 335 10^3/uL (130-450); RED BLOOD COUNT 4.63 10^6/uL (4.20-5.40); RED CELL DISTRIBUTION WIDTH 12.2 % (12.0-15.0); WHITE BLOOD COUNT 6.6 x10^3/uL (4.8-10.8)
[2020-07-22 12:35] LABS: THYROID STIMULATING HORMONE 7.72 uIU/mL (0.34-5.60)
[2020-07-22 12:37] LABS: FREE T3 2.93 pg/mL (2.5-3.9); FREE T4 (FREE THYROXINE) 0.89 ng/dL (0.58-1.64)
== END 2020-07-22 23:59 | disposition home or self-care (01) ==
LOC: LAB.WCP 09:38
PROVIDERS: ATTEND Nurse Practitioner
DX: E06.3 Autoimmune thyroiditis (principal); R10.9 Unspecified abdominal pain; R23.8 Other skin changes; K21.9 Gastro-esophageal reflux disease without esophagitis
CPT/HCPCS: 36415; 84439; 84443; 84481; 85025

== ENCOUNTER 2020-11-19 08:00 | Outpatient (CLI) | payer MEDICAID ==
[2020-11-19 20:50] LABS: BASOPHILS # (AUTO) 0.1 10^3/uL (0.0-0.1); BASOPHILS % (AUTO) 0.6 %; EOSINOPHILS # (AUTO) 0.1 10^3/uL (0.0-0.7); EOSINOPHILS % (AUTO) 0.8 %; HGB - HEMOGLOBIN 14.3 g/dL (12.0-16.0); LYMPHOCYTES % (AUTO) 46.4 %; MEAN CORPUSCULAR HEMOGLOBIN 30.9 pg (27.0-31.0); MEAN CORPUSCULAR HGB CONC 33.3 g/dL (32.0-36.0); MEAN CORPUSCULAR VOLUME 92.9 fL (81.0-99.0); MEAN PLATELET VOLUME 10.1 fL (7.9-10.8); MONOCYTES # (AUTO) 0.5 10^3/uL (0.0-1.0); MONOCYTES % (AUTO) 5.9 %; NEUTROPHILS % (AUTO) 46.2 %; PLT - PLATELET COUNT 335 10^3/uL (130-450); RED BLOOD COUNT 4.63 10^6/uL (4.20-5.40); RED CELL DISTRIBUTION WIDTH 11.7 % (12.0-15.0); WHITE BLOOD COUNT 8.7 x10^3/uL (4.8-10.8)
[2020-11-19 20:52] LABS: ALBUMIN 4.2 g/dL (3.2-5.5); ALBUMIN/GLOBULIN RATIO 1.3 (1.0-2.2); BILIRUBIN,TOTAL 0.5 mg/dL (0.2-1.0); CALCIUM 9.3 mg/dL (8.5-10.3); CREATININE 0.6 mg/dL (0.4-1.0); TOTAL PROTEIN 7.5 g/dL (6.7-8.2)
== END 2020-11-19 23:59 | disposition home or self-care (01) ==
LOC: LAB.R 08:00
PROVIDERS: ATTEND Physician Assistant Medical
DX: R14.0 Abdominal distension (gaseous) (principal)
CPT/HCPCS: 36415; 80053; 84443; 85025

== ENCOUNTER 2021-01-27 07:00 | Outpatient (CLI) | payer MEDICAID | END 2021-01-27 23:59 | disposition home or self-care (01) | LOC: LAB.N 07:00 | PROVIDERS: ATTEND Family Medicine | DX: R05 Cough (principal); R07.0 Pain in throat; Z20.822 Contact with and (suspected) exposure to COVID-19 ==

== ENCOUNTER 2021-03-08 09:33 | Outpatient (CLI) | payer OTHER, MEDICAID ==
--- NOTE | 2021-03-08 13:07 | Ultrasound Report ---
PROCEDURE: OB First Trimester INDICATIONS: pREG TEST POSITIVE OUTSIDE/PRIOR DATING DATA: Last menstrual period (LMP): 01/13/2021. LMP-based estimated date of delivery (ANCELMO): 10/20/2021. First dating scan (date and location): 03/08/2021 Estimated date of delivery (ANCELMO) from first dating scan: 10/26/2021. TECHNIQUE: Real-time scanning was performed of the fetus and maternal pelvic organs, with image documentation. COMPARISON: None FINDINGS: Embryo: There is an intrauterine gestational sac seen, with a pole present, which measures 0.9 cm, which corresponds to an estimated gestational age of 6 weeks 6 days. cardiac activity is s een, with a measured heart rate of 125 bpm. No significant perigestational/subchorionic hemorrhage can be seen. A yolk sac can be seen. Measurement variability in dating: +/- 4 weeks by LMP, +/- 7 days by mean sac diameter (use before 6 weeks gestation if crown-rump length not able to be measured), +/- 5 days by crown-rump length (6-12 weeks gestation). Maternal organs: Ovaries are within normal limits, with apparent bilateral corpus luteum. IMPRESSION: Single live intrauterine . No significant discrepancy is found between the estimated gestational age based upon these images and the estimated gestational age based upon the given date of the last menstrual period. Reviewed by: John Vaughn MD on 03/08/2021 12:05 PM JENIFER Approved by: John Vaughn MD on 03/08/2021 12:05 PM JENIFER Station ID: [id number]
== END 2021-03-08 09:34 | disposition home or self-care (01) ==
LOC: DI 09:33
PROVIDERS: ATTEND Nurse Practitioner Obstetrics & Gynecology
DX: Z32.01 Encounter for pregnancy test, result positive (principal)

== ENCOUNTER 2021-07-08 07:00 | Outpatient (CLI) | payer OTHER, MEDICAID | END 2021-07-08 23:59 | disposition home or self-care (01) | LOC: LAB.N 07:00 | PROVIDERS: ATTEND Nurse Practitioner | DX: R07.0 Pain in throat (principal); Z20.822 Contact with and (suspected) exposure to COVID-19 | CPT/HCPCS: 87070 ==

== ENCOUNTER 2023-06-16 08:38 | Emergency (ER) | payer MEDICAID, OTHER ==
[2023-06-16 08:52] VITALS: BP 150/109; O2SAT 98
--- NOTE | 2023-06-16 09:13 | XRAY Report ---
PROCEDURE: Chest 2 View X-Ray INDICATIONS: cough TECHNIQUE: 2 views of the chest were acquired. COMPARISON: 04/14/2019. FINDINGS: Surgical changes and devices: None. Lungs and pleura: No pleural effusions or pneumothorax. Lungs are clear. Mediastinum: Mediastinal contours appear normal. Heart size is normal. Bones and chest wall: No suspicious bony lesions. Overlying soft tissues appear unremarkable. IMPRESSION: No acute cardiopulmonary process. Reviewed by: Sky Hu MD on 06/16/2023 9:12 AM PDT Approved by: Sky Hu MD on 06/16/2023 9:12 AM PDT Station ID: [id number]
[2023-06-16] MEDS ORDERED: IPRATROPIUM/ALBUTEROL 3 ML NEB INH STA (09:21)
--- OUTSIDE RECORDS SUMMARY | 2023-06-16 09:28 | EXTERNAL MEDICAL SUMMARY RPT | Continuity of Care Document ---
Author Name Unknown Address [address] [place] [address] Phone Organization [facility] Address [address] [place] [address] Phone Care Team Providers Care Green Ware Caster Name Role Phone Teresa Cowart Unavailable Unavailable Allergies and Intolerances date description facility reaction severity (no date) latex [facility] (no reaction) (no se verity) (no date) morphine [facility] (no reaction) (no se verity) Medications date description facility 2023-04-12 00:00 Ondansetron [facility] Problems date description facility 2023-04-12 00:00 Abdominal pain [facility] 2023-04-26 16:06 Polycystic ovarian syndrome [facility] 2023-04-26 16:06 Endometriosis, unspecified [facility] 2023-04-26 16:06 Unspecified abdominal pain [facility] 2023-04-26 18:15 Polycystic ovarian syndrome [facility] 2023-04-26 18:15 Endometriosis, unspecified [facility] 2023-04-26 18:15 Unspecified abdominal pain [facility] Procedures date description facility 2023-04-11 00:00 CT abdomen pelvis w [facility] Results/Labs test date facility value unit notes Social History date description facility 2023-04-11 00:00 Ex-smoker (finding) [facility] Vital Signs date measurement value units 2023-04-11 00:00 BMI 59.4 kg/m2 2023-04-11 00:00 height_metric 157.48 cm 2023-04-11 00:00 height_standard 62 in 2023-04-11 00:00 temperature_metric 36.89 C 2023-04-11 00:00 temperature_standard 98.4 F 2023-04-11 00:00 weight_metric 147.41 kg 2023-04-11 00:00 weight_standard 324.98 lb 2023-04-12 00:00 BP_diastolic 70 mmHg 2023-04-12 00:00 BP_systolic 123 mmHg 2023-04-12 00:00 heart_rate 86 /min 2023-04-12 00:00 o2_saturation 98 % 2023-04-12 00:00 respiration_rate 16 /min
--- NOTE | 2023-06-16 09:56 | ED Physician Documentation ---
PD HPI URI - Stated complaint Stated Complaint: SOA,CHILLS,COUGH - Chief complaint Chief Complaint: Resp - History obtained from History obtained from: Patient - History of Present Illness Associated symptoms: Chills, Nasal congestion, Rhinorrhea, Dry cough, Dyspnea. No: Fever, Sinus pain, Sore throat, Swollen nodes, Productive cough Improves by: Rest Worsened by: Activity, Breathing - Additional information Additional information: Patient 38-year-old female who presents to the emergency department complaining of a cough x5 days. Increased coughing recently. She states that she feels like her back hurts from coughing. No fevers. Has had occasional chills. Has had nasal congestion, rhinorrhea no sore throat, mostly dry cough. She has used inhalers in the past but does not have one now. She does not have a history of asthma however. 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 : None HEENT: None Psych: None Musculoskeletal: None Derm: None - Past Surgical History Past Surgical History: Yes Ortho: Other - Present Medications Home Medications: Ambulatory Orders Medication Instructions Recorded Confirmed Albuterol Sulf [Ventolin Hfa 1 - 2 puffs INH Q4HR PRN #1 each 06/16/23 Inhaler] Benzonatate [Tessalon] 200 mg PO TID PRN #30 cap 06/16/23 Cetirizine HCl/Pseudoephedrine 1 tab PO BID PRN #20 tab 06/16/23 [Zyrtec-D ER 5 mg-120 mg Tablet] - Allergies Allergies/Adverse Reactions: Allergies Allergy/AdvReac Type Severity Reaction Status Date / Time latex Allergy Itching Verified 06/16/23 08:48 morphine Allergy Respiratory Verified 06/16/23 08:48 - Social History Does the pt smoke?: No Smoking Status: Never smoker Does the pt drink ETOH?: Yes Does the pt have substance abuse?: Yes - Immunizations Immunizations are current?: Yes - POLST Patient has POLST: No PD ED PE NORMAL - Vitals Vital signs reviewed: Yes - General General: Alert and oriented X 3, No acute distress - HEENT HEENT: PERRL, Moist mucous membranes - Neck Neck: Supple, no meningeal sign - Cardiac Cardiac: RRR, Strong equal pulses - Respiratory Respiratory: No respiratory distress, Other (Mild wheezing in the right lower lobe, otherwise clear) - Abdomen Abdomen: Soft, Non tender, Non distended - Derm Derm: Warm and dry - Extremities Extremities: No edema, No calf tenderness / cord - Neuro Neuro: Alert and oriented X 3 - Psych Psych: Normal mood, Normal affect Results - Vitals Vitals: Vital Signs - 24 hr 06/16/23 06/16/23 08:42 09:36 Temperature 36.0 C L Heart Rate 89 78 Respiratory 14 17 Rate Blood Pressure 150/109 H O2 Saturation 98 Oxygen O2 Source Room air - Labs Labs: Laboratory Tests 06/16/23 08:54 Nasal Adenovirus (PCR) NOT DETECTED Nasal B. parapertussis DNA (PCR) NOT DETECTED Nasal Coronavir 229E PCR NOT DETECTED Nasal Coronavir HKU1 PCR NOT DETECTED Nasal Coronavir NL63 PCR NOT DETECTED Nasal Coronavir OC43 PCR NOT DETECTED Nasal Enterovir/Rhinovir PCR NOT DETECTED Nasal Influenza B PCR NOT DETECTED Nasal Influenza A PCR NOT DETECTED Nasal Parainfluen 1 PCR NOT DETECTED Nasal Parainfluen 2 PCR NOT DETECTED Nasal Parainfluen 3 PCR NOT DETECTED Nasal Parainfluen 4 PCR NOT DETECTED Nasal RSV (PCR) NOT DETECTED Nasal B.pertussis DNA PCR NOT DETECTED Nasal C.pneumoniae (PCR) NOT DETECTED Claudy Human Metapneumo PCR NOT DETECTED Nasal M.pneumoniae (PCR) NOT DETECTED Nasal SARS-CoV-2 (PCR) NOT DETECTED - Rads (name of study) Chest x-ray Relevant Findings:: Final report received, See rad report PD Medical Decision Making - ED course Complexity details: reviewed results, re-evaluated patient (Lungs are clear to auscultation bilaterally after nebulizer treatment), considered differential, d/w patient ED course: Patient is well-appearing, nontoxic. Afebrile. No hypoxia. No respiratory distress. Feels better after albuterol treatment. Will prescribe albuterol for home. Chest x-ray does not show any acute abnormalities. Respiratory PCR is negative. Will prescribe decongestants as well. Patient counseled regarding signs and symptoms for which I believe and urgent re-evaluation would be necessary. Patient with good understanding of and agreement to plan and is comfortable going home at this time This document was made in part using voice recognition software. While efforts are made to proofread this document, sound alike and grammatical errors may occur. Departure - Departure Disposition: 01 Home, Self Care Clinical Impression: Viral URI with cough Condition: Good Instructions: ED Viral Syndrome Follow-Up: CARL QUINTANA [Primary Care Provider] - Within 1 week Prescriptions: Albuterol Sulf [Ventolin Hfa Inhaler] 1 - 2 puffs INH Q4HR PRN #1 each PRN Reason: Shortness Of Air/Wheezing Benzonatate [Tessalon] 200 mg PO TID PRN #30 cap PRN Reason: Cough Cetirizine HCl/Pseudoephedrine [Zyrtec-D ER 5 mg-120 mg Tablet] 1 tab PO BID PRN #20 tab PRN Reason: nasal congestion Comments: Your prescriptions were sent to [facility] in [place]. Please use the medications as prescribed. Please return if you worsen. You can use Motrin or Tylenol as needed for pain. Your chest x-ray does not show any acute abnormalities today, no evidence of pneumonia. The respiratory swab is negative as well. Forms: PCP List Discharge Date/Time: 06/16/23 10:31
[2023-06-16 09:57] LABS: B. PARAPERTUSSIS- RESP PCR PAN NOT DETECTED; B. PERTUSSIS- RESP PCR PANEL NOT DETECTED; C. PNEUMONIAE- RESP PCR PANEL NOT DETECTED; CORONAVIRUS 229E-RESP PCR NOT DETECTED; CORONAVIRUS HKU1-RESP PCR NOT DETECTED; CORONAVIRUS NL63-RESP PCR NOT DETECTED; CORONAVIRUS OC43-RESP PCR NOT DETECTED; HUMAN METAPNEUMOVIRUS NOT DETECTED; INFLUENZA A- RESP PCR PANEL NOT DETECTED; INFLUENZA B - RESP PCR PANEL NOT DETECTED; M. PNEUMONIAE- RESP PCR PANEL NOT DETECTED; PARAINFLUENZA VIRUS 1 NOT DETECTED; PARAINFLUENZA VIRUS 2 NOT DETECTED; PARAINFLUENZA VIRUS 3 NOT DETECTED; PARAINFLUENZA VIRUS 4 NOT DETECTED; RHINOVIRUS/ENTEROVIRUS NOT DETECTED; RSV- RESP PCR PANEL NOT DETECTED; SARS-CoV-2 -RESP PCR PANEL NOT DETECTED
== END 2023-06-16 10:31 | disposition home or self-care (01) ==
LOC: ED 08:38
DX: J06.9 Acute upper respiratory infection, unspecified (principal); Z20.822 Contact with and (suspected) exposure to COVID-19; E03.9 Hypothyroidism, unspecified
CPT/HCPCS: 87633; 94640; 99283; 99284

== ENCOUNTER 2023-06-23 01:35 | Emergency (ER) | payer MEDICAID ==
[2023-06-23] MEDS ORDERED: DEXAMETHASONE 10 MG/ML VIAL PO STA (01:48)
[2023-06-23] MEDS ORDERED: CHERRY SYRUP 10 ML UDC PO ONE (01:48)
[2023-06-23] MEDS ORDERED: diphenhydrAMINE 25 MG CAPSULE PO STA (01:48)
[2023-06-23] MEDS ORDERED: FAMOTIDINE 20 MG TABLET PO STA (01:48)
--- NOTE | 2023-06-23 01:51 | ED Physician Documentation ---
History of Present Illness - Stated complaint Stated Complaint: SOA/BODY ITCH - Additonal information Additional information: Patient is 38-year-old female presenting to the emergency department with chief complaint of rash. Seen here few days ago and diagnosed with viral illness. Was subsequently diagnosed with pneumonia at walk-in clinic yesterday and started on course of doxycycline. Today at approximately 5 PM developed hives on her lower extremities, the hives have subsequently spread to her upper and lower extremities, chest, back. She denies any wheeze or new or worsening shortness of breath. Denies any history of anaphylactic reactions in the past. Denies any known allergies. Has not taken any medications to help with her symptoms. 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 : None HEENT: None Psych: None Musculoskeletal: None Derm: None - Past Surgical History Past Surgical History: Yes Ortho: Other - Present Medications Home Medications: Ambulatory Orders Medication Instructions Recorded Confirmed Albuterol Sulf [Ventolin Hfa 1 - 2 puffs INH Q4HR PRN #1 each 06/16/23 Inhaler] Benzonatate [Tessalon] 200 mg PO TID PRN #30 cap 06/16/23 Cetirizine HCl/Pseudoephedrine 1 tab PO BID PRN #20 tab 06/16/23 [Zyrtec-D ER 5 mg-120 mg Tablet] Amox/Clav 875/125 [Augmentin] 1 tab PO Q12H #20 tablet 06/23/23 diphenhydrAMINE [Benadryl] 25 mg PO Q6HR PRN #30 cap 06/23/23 - Allergies Allergies/Adverse Reactions: Allergies Allergy/AdvReac Type Severity Reaction Status Date / Time doxycycline Allergy Intermediate Hives Verified 06/23/23 01:52 latex Allergy Itching Verified 06/16/23 08:48 morphine Allergy Respiratory Verified 06/16/23 08:48 - Social History Does the pt smoke?: No Smoking Status: Never smoker Does the pt drink ETOH?: Yes Does the pt have substance abuse?: Yes - Immunizations Immunizations are current?: Yes - POLST Patient has POLST: No PD ED PE NORMAL - Vitals Vital signs reviewed: Yes - General General: Alert and oriented X 3, No acute distress, Other (Morbidly obese) - HEENT HEENT: Atraumatic - Neck Neck: Supple, no meningeal sign - Cardiac Cardiac: RRR, No gallop - Respiratory Respiratory: No respiratory distress, Clear bilaterally - Abdomen Abdomen: Normal bowel sounds, Non tender - Female Female : Deferred - Rectal Rectal: Deferred - Derm Derm: Other (Diffuse urticaria) Results - Vitals Vitals: Vital Signs - 24 hr 06/23/23 06/23/23 06/23/23 01:47 02:48 03:24 Temperature 36.6 C Heart Rate 104 H 90 81 Respiratory 19 17 18 Rate Blood Pressure 148/100 H 138/84 H 113/69 O2 Saturation 95 94 98 Oxygen O2 Source Room air PD Medical Decision Making - ED course Complexity details: reviewed results, re-evaluated patient, d/w patient ED course: Patient 38-year-old female presenting to the emergency department with diffuse urticarial rash. No wheeze, shortness of breath or other indications of hemodynamic compromise or anaphylaxis. She was recently started on a course doxycycline for pneumonia. Given Decadron, Benadryl, Pepcid in the emergency department. Monitored carefully on reevaluation reported feeling significantly better. Will discharge with a course of Augmentin to supplant Departure - Departure Disposition: 01 Home, Self Care Clinical Impression: Allergic reaction Qualifiers: Encounter type: initial encounter Qualified Code(s): T78.40XA - Allergy, unspecified, initial encounter Prescriptions: diphenhydrAMINE [Benadryl] 25 mg PO Q6HR PRN #30 cap PRN Reason: Itching Amox/Clav 875/125 [Augmentin] 1 tab PO Q12H #20 tablet Comments: Thank you for allowing us to care for you today would be general. Have sent prescriptions for Augmentin as well as Benadryl for use at home to your preferred pharmacy, [facility]. Doxycycline has been added to your list of allergies. Please inform all future healthcare encounters of this allergy. If you have any new or worsening symptoms please not hesitate to return. Forms: PCP List
[2023-06-23 03:27] VITALS: O2SAT 98
[2023-06-23 03:57] VITALS: BP 131/88
== END 2023-06-23 03:55 | disposition home or self-care (01) ==
LOC: ED 01:35
DX: T78.40XA Allergy, unspecified, initial encounter (principal); X58.XXXA Exposure to other specified factors, initial encounter; E03.9 Hypothyroidism, unspecified; Z79.899 Other long term (current) drug therapy
CPT/HCPCS: 99282; 99283; A9270

== ENCOUNTER 2023-07-07 16:57 | Emergency (ER) | payer MEDICAID ==
--- NOTE | 2023-07-07 17:39 | ED Physician Documentation ---
PD HPI LOWER EXT INJURY - Stated complaint Stated Complaint: RT ARM/LEG PX - Chief complaint Chief Complaint: Ext Problem - History obtained from History obtained from: Patient - History of Present Illness PD HPI LOW EXT INJURY LOCATION: Right, Knee, Calf Type of injury: No: Fall, Twist, Blunt / blow Where injury occurred: Other (The patient has noticed soreness of her right posterior knee down her calf for several days to a week or more and feels that there is swelling there. She has pain in the right forearm as well just for a day or 2. She has had a cough and some pleuritic chest pain for a month.) Timing - details: Gradual onset, Still present Worsened by: Moving, Palpating (upper calf right) Associated symptoms: No: Weakness, Numbness Recently seen: Emergency Dept (Seen at [facility] about 2 weeks ago for cough and chest pain that hurt with breathing. She had an elevated D-dimer and CT of the chest which was negative for clots. Treated with steroids and antibiotic. She has persisted with some coughing.) Review of Systems Constitutional: denies: Fever, Chills Ears: reports: Ear pain (popping and feeling of pressure.) Nose: reports: Congestion. denies: Rhinorrhea / runny nose Throat: denies: Sore throat Cardiac: reports: Chest pain / pressure. denies: Palpitations Respiratory: reports: Cough (for 1 month). 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 : None HEENT: None Psych: None Musculoskeletal: None Derm: None - Past Surgical History Past Surgical History: Yes Ortho: Other /BALER OPERATOR: section, Tubal ligation - Present Medications Home Medications: Ambulatory Orders Medication Instructions Recorded Confirmed Albuterol Sulf [Ventolin Hfa 1 - 2 puffs INH Q4HR PRN #1 each 06/16/23 Inhaler] HYDROcod/ACETAM 5/325 [Olar 5/325] 1 ea PO Q6H PRN #12 tablet 07/07/23 - Allergies Allergies/Adverse Reactions: Allergies Allergy/AdvReac Type Severity Reaction Status Date / Time doxycycline Allergy Intermediate Hives Verified 07/07/23 17:07 latex Allergy Itching Verified 07/07/23 17:07 morphine Allergy Respiratory Verified 07/07/23 17:07 - Social History Does the pt smoke?: No Smoking Status: Never smoker Does the pt drink ETOH?: Yes Does the pt have substance abuse?: No Substance Use and Type: Marijuana - Immunizations Immunizations are current?: Yes - POLST Patient has POLST: No PD ED PE NORMAL - Vitals Vital signs reviewed: Yes - General General: Alert and oriented X 3, No acute distress, Well developed/nourished - HEENT HEENT: Pharynx benign. No: Ears normal (no redness but some fluid behind the TMs.) - Neck Neck: Supple, no meningeal sign, No bony TTP (has some muscular tenderness right paracervical area. ), No adenopathy - Derm Derm: Normal color, Warm and dry - Extremities Extremities: Other (right calf with some tenderness right lateral and popliteal. Large BMI but does seem to have some swelling in lower leg. Right forearm nontender, good ROM. Not clear cause of pain there.) - Neuro Neuro: Alert and oriented X 3, No motor deficit, No sensory deficit Results - Vitals Vitals: Vital Signs - 24 hr 07/07/23 07/07/23 17:01 18:46 Temperature 36.8 C Heart Rate 112 H 103 H Respiratory 17 16 Rate Blood Pressure 149/99 H 140/94 H O2 Saturation 98 94 Oxygen O2 Source Room air PD Medical Decision Making - ED course Complexity details: reviewed results (duplex US right leg negative for DVT.), considered differential (forearm and neck pain are new and seem muscular. The calf pain is a week or so with feeling of swelling, so will get DUplex. ), d/w patient Departure - Departure Disposition: 01 Home, Self Care Clinical Impression: Right arm pain, Right calf pain, Neck pain Condition: Stable Record reviewed to determine appropriate education?: Yes Instructions: ED Muscle Pain Leg Cramps, ED Neck Back Pain General Prescriptions: HYDROcod/ACETAM 5/325 [Olar 5/325] 1 ea PO Q6H PRN #12 tablet PRN Reason: Pain Comments: Presume you are leg and calf pains are muscular in nature. Your ultrasound did not show any clots. The forearm pain may relate to some pressure irritation of the neck muscles leading to some "pinched nerve" type symptoms. It may be just muscular on its own as well. For the arm I would just see how it does over a few days with less heavy use and some regular anti-inflammatory such as ibuprofen or naproxen. Similar for the calf, presuming muscular pains. I would suggest some regular anti-inflammatories such as naproxen or ibuprofen 2-3 [id number] tablets 3 times daily with food. To that add Tylenol every 4-6 hours if needed or hydrocodone if needed for worse pain. I wrote a limited prescription for that to help with the pains. Follow-up with your primary care as planned. Return if worse. Your eardrums did appear to have a little bit of fluid behind them but not appear infected. I would suggest some cetirizine/Zyrtec twice daily for the next week. This is an antihistamine. I sent your prescription to your preferred pharmacy. My narcotic instructions I am prescribing a short course of narcotic pain medication for you. These are potentially dangerous and addictive medications that should be used carefully. These medications may constipate you. Take an [id number] stool softener such as docusate twice daily with plenty of water while taking these medications. If you go 24 hours without a bowel movement, take [id number] MiraLAX, per package instructions. Do not drink or drive while taking these medications. If you received narcotic or sedating medications while in the emergency department do not drive for 24 hours. Store this medication in a safe, secure place and out of reach of children. It is a violation of federal law to give or sell this medication to another person or to use in a manner other than prescribed. The ED will not refill narcotic prescriptions, including prescriptions lost or stolen. You can dispose of unwanted medications at the [facility]'s office or at several pharmacies such as [facility]. Forms: PCP List Discharge Date/Time: 07/07/23 18:46
[2023-07-07] MEDS ORDERED: IBUPROFEN 800 MG TABLET PO STA (17:40)
[2023-07-07] MEDS ORDERED: ACETAMINOPHEN 325 MG TABLET PO STA (17:41)
--- NOTE | 2023-07-07 18:39 | ED Physician Documentation ---
ED Addendum - Addendum Addendum: 07/07/23 18:[address] Boyce at shift change to follow-up on ultrasound which was negative for DVT per the RDMS. Disposition: Discharged home Condition: Stable
[2023-07-07 18:53] VITALS: BP 140/94; O2SAT 94
--- NOTE | 2023-07-07 19:16 | Ultrasound Report ---
PROCEDURE: Duplex Ext Veins Right INDICATIONS: right calf pain/swelling TECHNIQUE: Real-time imaging, as well as color and pulse Doppler interrogation, were performed of the lower extr emity deep veins from the inguinal ligament to the popliteal fossa. Attempted visualization of the ca lf veins was performed. COMPARISON: None. FINDINGS: Decreased exam quality secondary to patient body habitus. The deep veins are normally compressible, and free of intraluminal thrombus. Color and pulse Doppler demonstrate normal phasic intraluminal flow. There is normal augmentation response to distal compre ssion maneuver. IMPRESSION: 1. No DVT in the right lower extremity. 2. Preliminary results given by the research center partner to the patient's nurse immediately following the stud y. Reviewed by: Mary Carolina MD on 07/07/2023 7:14 PM PDT Approved by: Mary Carolina MD on 07/07/2023 7:14 PM PDT Station ID: [id number]
== END 2023-07-07 18:46 | disposition home or self-care (01) ==
LOC: ED 16:57
DX: M25.561 Pain in right knee (principal); M79.631 Pain in right forearm; M54.2 Cervicalgia
CPT/HCPCS: 93971; 99283; 99284; A9270

== ENCOUNTER 2023-07-18 19:07 | Outpatient (CLI) | payer MEDICAID | END 2023-07-18 19:08 | disposition critical access hospital (66) | LOC: EMS 19:07 | DX: M54.9 Dorsalgia, unspecified (principal); R05.9 Cough, unspecified | CPT/HCPCS: A0425; A0429; A0999 ==

== ENCOUNTER 2023-12-22 18:19 | Emergency (ER) | payer MEDICAID ==
[2023-12-22 18:39] VITALS: BP 169/96; O2SAT 98
== END 2023-12-22 19:20 | disposition left against medical advice (07) ==
LOC: ED 18:19
DX: Z53.21 Procedure and treatment not carried out due to patient leaving prior to being seen by health care provider (principal)

== ENCOUNTER 2024-01-05 13:59 | Emergency (ER) | payer MEDICAID ==
[2024-01-05 14:21] VITALS: BP 141/95; O2SAT 98
--- NOTE | 2024-01-05 14:49 | ED Physician Documentation ---
PD HPI URI - Stated complaint Stated Complaint: COUGH,CHEST/BACK PX - Chief complaint Chief Complaint: Resp - History obtained from History obtained from: Patient - History of Present Illness Timing - onset: How many months ago (1) Timing duration: Months (1) Timing details: Gradual onset Pain level max: 5 Pain level now: 5 Associated symptoms: Nasal congestion, Rhinorrhea, Dry cough. No: Fever, Chills, Dyspnea, NVD Improves by: Rest Worsened by: Activity, Breathing Recently seen: Not recently seen - Additional information Additional information: 38-year-old female states that she was sick about a month ago, has a lingering dry cough. Now has pain on the left lower back and left mid back when she coughs. Feels like a stabbing pain. Worse with coughing, breathing, moving. Nothing makes it better. No fevers. No chills. No history of lung issues. Smokes marijuana. No nausea or vomiting. Denies any possibility of . 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 : None HEENT: None Psych: None Musculoskeletal: None Derm: None - Past Surgical History Past Surgical History: Yes Ortho: Other /MOTHER REPAIRER: section, Tubal ligation - Present Medications Home Medications: Ambulatory Orders Medication Instructions Recorded Confirmed Benzonatate [Tessalon] 200 mg PO TID PRN #30 cap 01/05/24 HYDROcod/ACETAM 5/325 [[place] 5/325] 1 - 2 ea PO Q6H PRN #14 tablet 01/05/24 Levothyroxine [Synthroid] 112 mcg PO DAILY 01/05/24 - Allergies Allergies/Adverse Reactions: Allergies Allergy/AdvReac Type Severity Reaction Status Date / Time doxycycline Allergy Intermediate Hives Verified 01/05/24 14:18 latex Allergy Itching Verified 01/05/24 14:18 morphine Allergy Respiratory Verified 01/05/24 14:18 - Social History Does the pt smoke?: No Smoking Status: Never smoker Does the pt drink ETOH?: Yes Does the pt have substance abuse?: No - Immunizations Immunizations are current?: Yes - POLST Patient has POLST: No PD ED PE NORMAL - Vitals Vital signs reviewed: Yes - General General: Alert and oriented X 3, No acute distress - HEENT HEENT: PERRL, Ears normal - Neck Neck: Supple, no meningeal sign - Cardiac Cardiac: RRR, Strong equal pulses - Respiratory Respiratory: No respiratory distress, Clear bilaterally - Abdomen Abdomen: Soft, Non tender, Non distended - Back Back: No spinal TTP (No midline tenderness to palpation or percussion. No step- off or deformity. No tenderness over the left posterior ribs.) - Derm Derm: Warm and dry, No rash - Extremities Extremities: No edema - Neuro Neuro: Alert and oriented X 3 - Psych Psych: Normal mood, Normal affect Results - Vitals Vitals: Vital Signs - 24 hr 01/05/24 14:09 Temperature 36.6 C Heart Rate 90 Respiratory 17 Rate Blood Pressure 141/95 H O2 Saturation 98 Oxygen O2 Source Room air - Labs Labs: Laboratory Tests 01/05/24 14:16 Nasal Adenovirus (PCR) NOT DETECTED Nasal B. parapertussis DNA (PCR) NOT DETECTED Nasal Coronavir 229E PCR NOT DETECTED Nasal Coronavir HKU1 PCR NOT DETECTED Nasal Coronavir NL63 PCR NOT DETECTED Nasal Coronavir OC43 PCR NOT DETECTED Nasal Enterovir/Rhinovir PCR NOT DETECTED Nasal Influenza B PCR NOT DETECTED Nasal Influenza A PCR NOT DETECTED Nasal Parainfluen 1 PCR NOT DETECTED Nasal Parainfluen 2 PCR NOT DETECTED Nasal Parainfluen 3 PCR NOT DETECTED Nasal Parainfluen 4 PCR NOT DETECTED Nasal RSV (PCR) NOT DETECTED Nasal B.pertussis DNA PCR NOT DETECTED Nasal C.pneumoniae (PCR) NOT DETECTED Claudy Human Metapneumo PCR NOT DETECTED Nasal M.pneumoniae (PCR) NOT DETECTED Nasal SARS-CoV-2 (PCR) NOT DETECTED - Rads (name of study) cxr Relevant Findings:: Final report received, See rad report PD Medical Decision Making - ED course Complexity details: reviewed results, re-evaluated patient, considered differential, d/w patient ED course: Patient is well-appearing, nontoxic. Afebrile. No acute findings on x-ray. Respiratory panel is negative. We will continue supportive care. Appears to be a viral upper respiratory illness. No pneumothorax. Patient counseled regarding signs and symptoms for which I believe and urgent re-evaluation would be necessary. Patient with good understanding of and agreement to plan and is comfortable going home at this time This document was made in part using voice recognition software. While efforts are made to proofread this document, sound alike and grammatical errors may occur. Departure - Departure Disposition: 01 Home, Self Care Clinical Impression: Viral URI with cough Condition: Good Instructions: ED Viral Syndrome Follow-Up: CARL QUINTANA [Primary Care Provider] - Prescriptions: HYDROcod/ACETAM 5/325 [[place] 5/325] 1 - 2 ea PO Q6H PRN #14 tablet PRN Reason: Pain Benzonatate [Tessalon] 200 mg PO TID PRN #30 cap PRN Reason: Cough Comments: Please follow-up with your doctor for further care. Please return if you worsen. [facility] e-prescribing system is down currently. Therefore you were given a handwritten prescription. Your x-ray does not show any evidence of pneumonia. Your respiratory PCR is pending, you can check the results on the patient portal. You appear to have strained the muscles in between your ribs, likely causing the pain you are feeling. I am prescribing a short course of narcotic pain medication for you. These are potentially dangerous and addictive medications that should be used carefully. These medications may constipate you. Take an yxgo-[id number] stool softener (docusate) twice daily with plenty of water while taking these medications. If you go 24 hours without a bowel movement, take [id number] miralax, per package instructions. Do not drink or drive while taking these medications. If you received narcotic or sedating medications while in the emergency department, do not drive for 24 hours. Store this medication in a safe, secure place and out of reach of children. It is a violation of federal law to give or sell this medication to another person or to use in a manner other than prescribed. The ED will not refill narcotic prescriptions, including prescriptions lost or stolen. To dispose of unwanted medications: 1. [facility] at [address] in [place] has a medication drop box. They accept prescription medications (in pill form) Wednesday through Wednesday 9:00 a.m. to 5:00 p.m. 2. [facility] [employer] accepts prescription medications (in pill form only) for disposal year round. Call for more information. 3. Contact the [facility] for the next [facility] sponsored prescription drug collection event. , [phone], or [phone]; Forms: PCP List Discharge Date/Time: 01/05/24 15:39
[2024-01-05 15:40] LABS: B. PARAPERTUSSIS- RESP PCR PAN NOT DETECTED; B. PERTUSSIS- RESP PCR PANEL NOT DETECTED; C. PNEUMONIAE- RESP PCR PANEL NOT DETECTED; CORONAVIRUS 229E-RESP PCR NOT DETECTED; CORONAVIRUS HKU1-RESP PCR NOT DETECTED; CORONAVIRUS NL63-RESP PCR NOT DETECTED; CORONAVIRUS OC43-RESP PCR NOT DETECTED; HUMAN METAPNEUMOVIRUS NOT DETECTED; INFLUENZA A- RESP PCR PANEL NOT DETECTED; INFLUENZA B - RESP PCR PANEL NOT DETECTED; M. PNEUMONIAE- RESP PCR PANEL NOT DETECTED; PARAINFLUENZA VIRUS 1 NOT DETECTED; PARAINFLUENZA VIRUS 2 NOT DETECTED; PARAINFLUENZA VIRUS 3 NOT DETECTED; PARAINFLUENZA VIRUS 4 NOT DETECTED; RHINOVIRUS/ENTEROVIRUS NOT DETECTED; RSV- RESP PCR PANEL NOT DETECTED; SARS-CoV-2 -RESP PCR PANEL NOT DETECTED
--- NOTE | 2024-01-05 15:57 | XRAY Report ---
PROCEDURE: Chest 2V INDICATIONS: cough TECHNIQUE: 2 views of the chest were acquired. COMPARISON: None. FINDINGS: Surgical changes and devices: None. Lungs and pleura: No pleural effusions or pneumothorax. Lungs are clear. Mediastinum: Mediastinal contours appear normal. Heart size is normal. Bones and chest wall: No suspicious bony lesions. Overlying soft tissues appear unremarkable. IMPRESSION: No acute cardiopulmonary process. Reviewed by: Kennedy Nuñez MD on 01/05/2024 3:55 PM PST Approved by: Kennedy Nuñez MD on 01/05/2024 3:55 PM PST Station ID: [id number]
== END 2024-01-05 15:39 | disposition home or self-care (01) ==
LOC: ED 13:59
DX: E03.9 Hypothyroidism, unspecified (principal); Z87.42 Personal history of other diseases of the female genital tract; Z79.899 Other long term (current) drug therapy; J06.9 Acute upper respiratory infection, unspecified; B97.89 Other viral agents as the cause of diseases classified elsewhere
CPT/HCPCS: 87633; 99283; 99284

== ENCOUNTER 2024-04-28 00:49 | Emergency (ER) | payer MEDICAID ==
--- NOTE | 2024-04-28 02:14 | ED Physician Documentation ---
History of Present Illness - Stated complaint Stated Complaint: DIZZY/R LEG PX - Chief complaint Chief Complaint: Abd Pain - History obtained from History obtained from: Patient - History of Present Illness Timing: How many days ago (2) - Additonal information Additional information: Catia Burch is a 38-year-old female who has a history of chronic vertigo and she has been diagnosed with vestibular migraine recently. She presents to the emergency department today with increased dizziness and this did not resolve with sumatriptan hand which she has recently been prescribed. She is in addition complaining of pain down her right leg and pain in her back. She has not had the symptoms previously. She is complaining some urinary urgency without dysuria and this has been present for more than 2 months. Review of Systems Constitutional: denies: Fever Eyes: denies: Decreased vision Ears: denies: Ear pain Nose: denies: Rhinorrhea / runny nose, Congestion Throat: denies: Sore throat Cardiac: denies: Chest pain / pressure, Palpitations Respiratory: denies: Dyspnea, Cough GI: denies: Abdominal Pain, Nausea, Vomiting, Constipation, Diarrhea : reports: Other (urgency). denies: Dysuria, Frequency Skin: denies: Rash Musculoskeletal: reports: Back pain, Extremity pain (right leg). 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 : None HEENT: None Psych: None Musculoskeletal: None Derm: None - Past Surgical History Past Surgical History: Yes Ortho: Other /CHILD CENTER ASSISTANT: section, Tubal ligation - Present Medications Home Medications: Ambulatory Orders Medication Instructions Recorded Confirmed Benzonatate [Tessalon] 200 mg PO TID PRN #30 cap 01/05/24 HYDROcod/ACETAM 5/325 [[place] 5/325] 1 - 2 ea PO Q6H PRN #14 tablet 01/05/24 Levothyroxine [Synthroid] 112 mcg PO DAILY 01/05/24 - Allergies Allergies/Adverse Reactions: Allergies Allergy/AdvReac Type Severity Reaction Status Date / Time doxycycline Allergy Intermediate Hives Verified 04/28/24 01:14 latex Allergy Itching Verified 04/28/24 01:14 morphine Allergy Respiratory Verified 04/28/24 01:14 - Social History Does the pt smoke?: No Smoking Status: Never smoker Does the pt drink ETOH?: Yes Does the pt have substance abuse?: No - Immunizations Immunizations are current?: Yes - POLST Patient has POLST: No PD ED PE NORMAL - Vitals Vital signs reviewed: Yes (hypertensive ) - General General: Alert and oriented X 3, No acute distress, Well developed/nourished - HEENT HEENT: Atraumatic, PERRL, EOMI, Other (right TM with minimal inflamation to the attic. nystagmus bilat. ) - Neck Neck: Supple, no meningeal sign, No bony TTP - Cardiac Cardiac: RRR, No murmur - Respiratory Respiratory: No respiratory distress, Clear bilaterally - Abdomen Abdomen: Normal bowel sounds, Soft, Non tender, Non distended, No organomegaly - Back Back: No CVA TTP, No spinal TTP - Derm Derm: Normal color, Warm and dry, No rash - Extremities Extremities: No deformity, No edema - Neuro Neuro: Alert and oriented X 3, care asst 2-12 intact, No motor deficit, No sensory def icit, Normal speech Eye Opening: Spontaneous Motor: Obeys Commands Verbal: Oriented GCS Score: 15 - Psych Psych: Normal mood, Normal affect Results - Vitals Vitals: Vital Signs - 24 hr 04/28/24 01:08 Temperature 36.4 C L Heart Rate 94 Respiratory 18 Rate Blood Pressure 157/103 H O2 Saturation 98 Oxygen O2 Source Room air - Labs Labs: Laboratory Tests 04/28/24 02:00 Urine Color YELLOW Urine Clarity CLEAR Urine pH 6.0 Ur Specific [place] >=1.030 H Urine Protein NEGATIVE Urine Glucose (UA) NEGATIVE Urine Ketones NEGATIVE Urine Occult Blood NEGATIVE Urine Nitrite NEGATIVE Urine Bilirubin NEGATIVE Urine Urobilinogen 0.2 (NORMAL) Ur Leukocyte Esterase NEGATIVE Ur Microscopic Review NOT INDICATED Urine Culture Comments NOT INDICATED PD Medical Decision Making - ED course Complexity details: reviewed old records, reviewed results, re-evaluated patient, considered differential, d/w patient Reviewed Lab Results: We reviewed a urinalysis which showed a specific gravity 1 greater than 1.030 was otherwise negative.This urine specimen does not contribute to a specific diagnosis but does indicate a likely chance of dehydration. She may also have urinary urgency related to concentrated urine. ED course: 38-year-old female with vertigo and sciatica is administered meclizine dexamethasone and Toradol for symptomatic treatment. Departure - Departure Disposition: 01 Home, Self Care Clinical Impression: Vertigo Sciatica Qualifiers: Laterality: right Qualified Code(s): M54.31 - Sciatica, right side Condition: Stable Instructions: Meclizine, ED Sciatica, ED Vertigo Unspecified Follow-Up: CARL QUINTANA [Primary Care Provider] - Jonnathan Dueñas MD [Physician No Access] - Comments: Catia, today it looks like your back pain and pain in the right leg are related to sciatica which is a pinched nerve in your back with referred to pain. It does look like you have an episode of vertigo as well and we have provided some meclizine. Meclizine is the same medication as Dramamine. This is available [id number] and my recommendation is to take this if it helps. It appears that the Braden maneuvers have not worked for you previously. A follow-up to an ear nose and throat doctor may provide some further light on this situation. I have given you the name of a ear nose and throat doctor in [place]. As far as the urinary urgency goes we did find concentrated urine consistent with dehydration and sometimes with concentrated urine the feeling will be urgency. My recommendation is to drink more water. Forms: PCP List
[2024-04-28 02:28] LABS: BILIRUBIN,URINE NEGATIVE (NEGATIVE); GLUCOSE, URINE (UA) NEGATIVE (NEGATIVE); KETONES,URINE (UA) NEGATIVE (NEGATIVE); LEUKOCYTE ESTERASE, URINE NEGATIVE (NEGATIVE); NITRITE,URINE NEGATIVE (NEGATIVE); OCCULT BLOOD,URINE NEGATIVE (NEGATIVE); PROTEIN,URINE NEGATIVE (NEGATIVE); UROBILINOGEN,URINE 0.2 (NORMAL) E.U./dL (NORMAL)
[2024-04-28 02:29] LABS: CLARITY,URINE CLEAR (CLEAR)
[2024-04-28] MEDS: MECLIZINE 12.5 MG TABLET PO STA (02:30)
[2024-04-28] MEDS: CHERRY SYRUP 10 ML UDC PO ONE (03:06)
[2024-04-28] MEDS: KETOROLAC 30 MG/ML VIAL IM STA (03:06)
[2024-04-28] MEDS: DEXAMETHASONE 10 MG/ML VIAL PO STA (03:06)
[2024-04-28 03:24] VITALS: BP 147/68; O2SAT 99
== END 2024-04-28 03:21 | disposition home or self-care (01) ==
LOC: ED 00:49
DX: R42 Dizziness and giddiness (principal); M54.31 Sciatica, right side; E03.9 Hypothyroidism, unspecified
CPT/HCPCS: 81003; 96372; 99283; A9270; 81001; 87086